=== PATIENT | female | born 1935 | race Caucasian/White ===

== ENCOUNTER 2016-05-07 13:25 | Emergency (ER) | payer MEDICARE, OTHER ==
[2016-05-07 14:33] LABS: APPEARANCE,URINE CLOUDY; BILIRUBIN,URINE NEGATIVE (NEGATIVE); GLUCOSE, URINE NEGATIVE (NEGATIVE); KETONES,URINE NEGATIVE (NEGATIVE); LEUKOCYTE ESTERASE,URINE LARGE (NEGATIVE); NITRITE,URINE POSITIVE (NEGATIVE); PROTEIN,URINE 100 mg/dL (NEGATIVE); URINE SPECIFIC GRAVITY 1.012; UROBILINOGEN,URINE NEGATIVE mg/dL (<2.0)
[2016-05-07] MEDS ORDERED: LIDOCAINE 1% INJ-PF (10 MG/ML) 30 ML SDV INJ ONE (14:42)
[2016-05-07] MEDS ORDERED: CEFTRIAXONE INJ 1000 MG VIAL IM ONE (14:42)
--- NOTE | 2016-05-07 14:57 | ER Document Report ---
ED GI/ - General Mode of Arrival: Ambulatory Information source: Patient TRAVEL OUTSIDE OF THE [place] IN LAST 30 DAYS: No - HPI Patient complains to provider of: Other - UTI symptoms Onset: Last week Associated symptoms: Other - see above <LAURA AG - Last Filed: 05/07/16 14:41> <BRADLEY CEJA - Last Filed: 05/07/16 15:52> - General Chief Complaint: Urinary Frequency Stated Complaint: STRONG URINE ODOR,ALTERED MENTAL Notes: 81 year old female with history or UTIs (in ED on 04/16/2016 for UTI) presents to the ED accompanied by her daughter who complains the patient is having UTI like symptoms that started earlier this week. Patient was taken to her primary 2 days ago where a urine test was performed. Daughter states that the results of the urine test were not given to her and thus was not started on any antibiotics. Daughter states that the patient's behavior has become abnormal. Patient's primary care provider is Dr. Leblanc. (LAURA AG) - Related Data Allergies/Adverse Reactions: morphine [Morphine] Allergy (Severe, Verified 04/13/16 08:41) swelling Iodinated Contrast Media - Oral and [IV Dye, Iodine Containing] Allergy ( Intermediate, Verified 04/13/16 08:41) RASH TO FACE, DIFFICULTY BREATHING Past Medical History - General Information source: Patient, Relative - Social History Smoking Status: Unknown if Ever Smoked Family History: CAD, Hypertension - Past Medical History Cardiac Medical History: Reports: Hx Hypercholesterolemia, Hx Hypertension, Hx Heart Murmur Pulmonary Medical History: Reports: Hx Tuberculosis - hypo Neurological Medical History: Reports: Hx Cerebrovascular Accident Endocrine Medical History: Reports: Hx Hypothyroidism Renal/ Medical History: Reports: Hx Kidney Stones GI Medical History: Reports: Hx Diverticulitis, Hx Gastroesophageal Reflux Disease, Hx Hiatal Hernia Musculoskeltal Medical History: Reports Hx Arthritis Psychiatric Medical History: Reports: Hx Dementia, Hx Depression Past Surgical History: Reports: Hx Abdominal Surgery, Hx Appendectomy, Hx Bowel Surgery, Hx Section, Hx Cholecystectomy, Hx Colostomy - then reversed, Hx Hysterectomy, Hx Orthopedic Surgery, Hx Tubal Ligation - Immunizations Hx Diphtheria, Pertussis, Tetanus Vaccination: Yes Hx Pneumococcal Vaccination: 12/14/06 <LAURA AG - Last Filed: 05/07/16 14:41> Review of Systems - Review of Systems Constitutional: No symptoms reported EENT: No symptoms reported Cardiovascular: No symptoms reported Respiratory: No symptoms reported Gastrointestinal: No symptoms reported Genitourinary: See HPI, Dysuria, Frequency Female Genitourinary: No symptoms reported Musculoskeletal: No symptoms reported Skin: No symptoms reported Hematologic/Lymphatic: No symptoms reported Neurological/Psychological: No symptoms reported <LAURA AG - Last Filed: 05/07/16 14:41> Physical Exam - General General appearance: Alert In distress: None - HEENT Head: Normocephalic, Atraumatic Eyes: Normal Extraocular movements intact: Yes Pupils: PERRL - Respiratory Respiratory status: No respiratory distress Breath sounds: Normal - Cardiovascular Rhythm: Regular Heart sounds: Normal auscultation Murmur: Yes - Abdominal Inspection: Normal Distension: No distension Bowel sounds: Normal Tenderness: Nontender - Back Back: Normal - Extremities General upper extremity: Normal inspection, Normal ROM General lower extremity: Normal inspection, Normal ROM - Neurological Neuro grossly intact: Yes - baseline dimentia - Psychological Associated symptoms: Normal affect, Normal mood - Skin Skin Temperature: Warm Skin Moisture: Dry Skin Color: Normal <LAURA AG - Last Filed: 05/07/16 14:41> <BRADLEY CEJA - Last Filed: 05/07/16 15:52> - Vital signs Vitals: Temp Pulse Resp BP Pulse Ox 98.1 F 70 22 H 137/68 H 95 05/07/16 13:41 05/07/16 13:41 05/07/16 13:41 05/07/16 13:41 05/07/16 13:41 (LAURA AG) (BRADLEY CEJA) Course - Laboratory Result Diagrams: 05/07/16 14:28 05/07/16 14:28 <BRADLEY CEJA - Last Filed: 05/07/16 15:52> - Vital Signs Vital signs: Temp Pulse Resp BP Pulse Ox 98.1 F 70 22 H 137/68 H 95 05/07/16 13:41 05/07/16 13:41 05/07/16 13:41 05/07/16 13:41 05/07/16 13:41 (LAURA AG) (BRADLEY CEJA) - Laboratory Laboratory results interpreted by me: 05/07/16 05/07/16 05/07/16 14:00 14:28 14:28 WBC 10.8 H RBC 3.44 L Hgb 10.4 L Hct 31.1 L RDW 14.8 H BUN 24 H Est GFR ( Amer) 52 L Est GFR (Non-Af Amer) 43 L Albumin 3.1 L Urine Protein 100 H Urine Blood LARGE H Urine Nitrite POSITIVE H Ur Leukocyte Esterase LARGE H (LAURA AG) (BRADLEY CEJA) Discharge <LAURA AG - Last Filed: 05/07/16 14:41> <BRADLEY CEJA - Last Filed: 05/07/16 15:52> - Discharge Clinical Impression: Urinary tract infection Qualifiers: Urinary tract infection type: site unspecified Hematuria presence: with hematuria Qualified Code(s): N39.0 - Urinary tract infection, site not specified ; R31.9 - Hematuria, unspecified Condition: Stable Disposition: HOME, SELF-CARE Additional Instructions: Urinary Tract Infection: Your evaluation indicates that you have a urinary tract infection. This is due to germs growing in the bladder. This is a common problem. This infection usually responds quickly to antibiotics. Your antibiotic should be taken exactly as prescribed. Drink plenty of fluids -- three to four quarts a day. Occasionally, a bladder anesthetic will be prescribed to help stop the feeling of urgency until the antibiotic has a chance to clear the infection. This may cause your urine to be dark orange. Certain urine infections require a culture. If the doctor obtained a culture, the results will be back in two days. You should call to see if a change in treatment is needed. A repeat urinalysis after you finish treatment is often recommended. The physician will let you know if further testing is required. Call the doctor if you develop fever, chills, flank pain, inability to urinate, or blood in the urine. TAKE THE MEDICATION PRESCRIBED. DRINK PLENTY OF FLUIDS. FOLLOW UP WITH DR. LEBLANC MONDAY IF NOT IMPROVING. RETURN TO THE EMERGENCY ROOM IF ANY NEW OR WORSENING SYMPTOMS. Prescriptions: Cefuroxime Axetil [Ceftin 250 mg/5 ml Susp] 5 ml PO BID #75 ml Referrals: SAMAN LEBLANC MD [Primary Care Provider] - 05/09/16 Scribe Attestation: 05/07/16 15:51 I personally performed the services described in the documentation, reviewed and edited the documentation which was dictated to the scribe in my presence, and it accurately records my words and actions. (BRADLEY CEJA) Scribe Documentation - Scribe Written by Scribe:: Lesly Decker, 05/07/2016 1500 acting as scribe for :: Aminata <LAURA AG - Last Filed: 05/07/16 14:41>
[2016-05-07 15:24] LABS: ABSOLUTE EOSINOPHILS # (AUTO) 0.4 10^3/uL (0.0-0.6); ABSOLUTE LYMPHOCYTES (AUTO) 3.9 10^3/uL (0.5-4.7); ABSOLUTE NEUT (AUTO) 5.5 10^3/uL (1.7-8.2); BASOPHILS % (AUTO) 0.3 % (0-2); EOSINOPHILS % (AUTO) 3.8 % (0-6); HEMATOCRIT 31.1 % (36.0-47.0); HEMOGLOBIN 10.4 g/dL (12.0-15.5); HGB HCT DIFFERENCE 0.1; MEAN CORPUSCULAR HEMOGLOBIN 30.2 pg (27.0-33.4); MEAN CORPUSCULAR HGB CONC 33.5 g/dL (32.0-36.0); MEAN CORPUSCULAR VOLUME 90 fl (80-97); MONOCYTES % (AUTO) 9.3 % (3-13); RED BLOOD COUNT 3.44 10^6/uL (3.72-5.28); RED CELL DISTRIBUTION WIDTH 14.8 % (11.5-14.0); SEGMENTED NEUTROPHILS % (AUTO) 50.6 % (42-78); WHITE BLOOD COUNT 10.8 10^3/uL (4.0-10.5)
[2016-05-07 15:43] LABS: ALANINE AMINOTRANSFERASE 22 U/L (9-52); ALBUMIN 3.1 g/dL (3.5-5.0); ALKALINE PHOSPHATASE 115 U/L (38-126); ANION GAP 8 (5-19); ASPARTATE AMINO TRANSFERASE 22 U/L (14-36); BILIRUBIN,TOTAL 0.7 mg/dL (0.2-1.3); BLOOD UREA NITROGEN 24 mg/dL (7-20); CALCIUM 8.8 mg/dL (8.4-10.2); CARBON DIOXIDE 30 mmol/L (22-30); CHLORIDE 102 mmol/L (98-107); GLUCOSE 100 mg/dL (75-110); POTASSIUM 4.4 mmol/L (3.6-5.0); SODIUM 140.4 mmol/L (137-145); TOTAL PROTEIN 7.2 g/dL (6.3-8.2)
[2016-05-07 16:13] VITALS: BP 156/73
== END 2016-05-07 15:56 | disposition home or self-care (01) ==
LOC: ER 13:25
DX: N39.0 Urinary tract infection, site not specified (principal); E78.00 Pure hypercholesterolemia, unspecified; I10 Essential (primary) hypertension; E03.9 Hypothyroidism, unspecified; Z86.73 Personal history of transient ischemic attack (TIA), and cerebral infarction without residual deficits; Z87.442 Personal history of urinary calculi; Z90.49 Acquired absence of other specified parts of digestive tract; Z90.710 Acquired absence of both cervix and uterus; Z88.6 Allergy status to analgesic agent
CPT/HCPCS: 99283; 96372; 36415; 87086; 85025; 87088; 80053; 81001; 87186; J3490; J0696

== ENCOUNTER 2016-05-09 16:04 | Emergency (ER) | payer MEDICARE, OTHER ==
[2016-05-09] MEDS ORDERED: LIDOCAINE 5% (700 MG) TRANSDERMAL ADH..PATCH TP ONE (17:24)
[2016-05-09 17:30] LABS: ABSOLUTE EOSINOPHILS # (AUTO) 0.5 10^3/uL (0.0-0.6); ABSOLUTE LYMPHOCYTES (AUTO) 4.3 10^3/uL (0.5-4.7); ABSOLUTE NEUT (AUTO) 5.7 10^3/uL (1.7-8.2); BASOPHILS % (AUTO) 0.2 % (0-2); EOSINOPHILS % (AUTO) 4.5 % (0-6); HEMATOCRIT 31.3 % (36.0-47.0); HEMOGLOBIN 10.2 g/dL (12.0-15.5); HGB HCT DIFFERENCE -0.7; LYMPHOCYTES % (AUTO) 37.2 % (13-45); MEAN CORPUSCULAR HGB CONC 32.6 g/dL (32.0-36.0); MEAN CORPUSCULAR VOLUME 92 fl (80-97); MONOCYTES % (AUTO) 8.7 % (3-13); RED BLOOD COUNT 3.41 10^6/uL (3.72-5.28); RED CELL DISTRIBUTION WIDTH 15.2 % (11.5-14.0); SEGMENTED NEUTROPHILS % (AUTO) 49.4 % (42-78); WHITE BLOOD COUNT 11.5 10^3/uL (4.0-10.5)
[2016-05-09 17:32] LABS: ALANINE AMINOTRANSFERASE 22 U/L (9-52); ALBUMIN 3.6 g/dL (3.5-5.0); ALKALINE PHOSPHATASE 124 U/L (38-126); ANION GAP 8 (5-19); ASPARTATE AMINO TRANSFERASE 19 U/L (14-36); BILIRUBIN,TOTAL 0.5 mg/dL (0.2-1.3); BLOOD UREA NITROGEN 23 mg/dL (7-20); CALCIUM 8.8 mg/dL (8.4-10.2); CARBON DIOXIDE 29 mmol/L (22-30); CHLORIDE 104 mmol/L (98-107); CREATINE KINASE 27 U/L (30-135); CREATININE RESULT 1.15 mg/dL (0.52-1.25); GLUCOSE 111 mg/dL (75-110); POTASSIUM 4.7 mmol/L (3.6-5.0); SODIUM 141.3 mmol/L (137-145); TOTAL PROTEIN 7.4 g/dL (6.3-8.2)
[2016-05-09 18:00] LABS: CREATINE KINASE MB < 0.22 ng/mL (<4.55); TROPONIN I < 0.012 ng/mL
[2016-05-09 18:35] LABS: APPEARANCE,URINE CLOUDY; BILIRUBIN,URINE NEGATIVE (NEGATIVE); GLUCOSE, URINE NEGATIVE (NEGATIVE); KETONES,URINE NEGATIVE (NEGATIVE); LEUKOCYTE ESTERASE,URINE NEGATIVE (NEGATIVE); NITRITE,URINE NEGATIVE (NEGATIVE); PROTEIN,URINE 100 mg/dL (NEGATIVE); URINE SPECIFIC GRAVITY 1.015; UROBILINOGEN,URINE NEGATIVE mg/dL (<2.0)
--- NOTE | 2016-05-09 18:39 | ER Document Report ---
ED General - General Chief Complaint: Chest Pain Stated Complaint: CHEST PAIN TRAVEL OUTSIDE OF THE [place] IN LAST 30 DAYS: No - HPI Patient complains to provider of: right-sided chest pain Notes: Patient coming in for evaluation of a bruise to the right breast and chest pain. On known etiology of bruise family states no trauma last night after bath. Patient states pain and chest ongoing for the last 12 hours. Patient does have history of dementia. Patient upon my evaluation shows no distress - Related Data Allergies/Adverse Reactions: morphine [Morphine] Allergy (Severe, Verified 04/13/16 08:41) swelling Iodinated Contrast Media - Oral and [IV Dye, Iodine Containing] Allergy ( Intermediate, Verified 04/13/16 08:41) RASH TO FACE, DIFFICULTY BREATHING Past Medical History - Social History Smoking Status: Unknown if Ever Smoked Family History: CAD, Hypertension - Past Medical History Cardiac Medical History: Reports: Hx Hypercholesterolemia, Hx Hypertension, Hx Heart Murmur Denies: Hx Coronary Artery Disease, Hx Heart Attack Pulmonary Medical History: Reports: Hx Tuberculosis - hypo Denies: Hx Asthma, Hx Bronchitis, Hx COPD, Hx Pneumonia Neurological Medical History: Reports: Hx Cerebrovascular Accident. Denies: Hx Seizures Endocrine Medical History: Reports: Hx Hypothyroidism Renal/ Medical History: Reports: Hx Kidney Stones. Denies: Hx Peritoneal Dialysis GI Medical History: Reports: Hx Diverticulitis, Hx Gastroesophageal Reflux Disease, Hx Hiatal Hernia Musculoskeltal Medical History: Reports Hx Arthritis Psychiatric Medical History: Reports: Hx Dementia, Hx Depression Past Surgical History: Reports: Hx Abdominal Surgery, Hx Appendectomy, Hx Bowel Surgery, Hx Section, Hx Cholecystectomy, Hx Colostomy - then reversed, Hx Hysterectomy, Hx Orthopedic Surgery, Hx Tubal Ligation. Denies: Hx Pacemaker - Immunizations Hx Diphtheria, Pertussis, Tetanus Vaccination: Yes Hx Pneumococcal Vaccination: 12/14/06 Review of Systems - Review of Systems Constitutional: No symptoms reported EENT: No symptoms reported Cardiovascular: Chest pain - Bruising to right chest Respiratory: No symptoms reported Gastrointestinal: No symptoms reported Genitourinary: No symptoms reported Female Genitourinary: No symptoms reported Musculoskeletal: No symptoms reported Skin: No symptoms reported Hematologic/Lymphatic: No symptoms reported Neurological/Psychological: No symptoms reported Physical Exam - Vital signs Vitals: Resp Pulse Ox 17 96 05/09/16 16:36 05/09/16 16:36 Interpretation: Normal - General General appearance: Appears well, Alert - HEENT Head: Normocephalic, Atraumatic Eyes: Normal Pupils: PERRL - Respiratory Respiratory status: No respiratory distress Chest status: Nontender Breath sounds: Normal Chest palpation: Normal Notes: Bruising to the right breast - Cardiovascular Rhythm: Regular Heart sounds: Normal auscultation Murmur: No - Abdominal Inspection: Normal Distension: No distension Bowel sounds: Normal Tenderness: Nontender Organomegaly: No organomegaly - Back Back: Normal, Nontender - Extremities General upper extremity: Normal inspection, Nontender, Normal color, Normal ROM , Normal temperature General lower extremity: Normal inspection, Nontender, Normal color, Normal ROM , Normal temperature, Normal weight bearing. No: Sandeep's sign - Neurological Neuro grossly intact: Yes Cognition: Normal Orientation: AAOx4 Baldwin Coma Scale Eye Opening: Spontaneous Baldwin Coma Scale Verbal: Oriented Baldwin Coma Scale Motor: Obeys Commands Baldwin Coma Scale Total: 15 Speech: Normal Motor strength normal: LUE, RUE, LLE, RLE Sensory: Normal - Psychological Associated symptoms: Normal affect, Normal mood - Skin Skin Temperature: Warm Skin Moisture: Dry Skin Color: Normal Course - Re-evaluation Re-evalutation: 05/09/16 23:16 Patient coming in for evaluation of chest pain. Chest x-ray lab work showed no clear etiology. Family was updated lab results we will discharge home - Vital Signs Vital signs: Temp Pulse Resp BP Pulse Ox 98.7 F 17 141/79 H 90 L 05/09/16 18:46 05/09/16 18:46 05/09/16 18:46 05/09/16 18:46 - Laboratory Result Diagrams: 05/09/16 16:45 05/09/16 16:45 Laboratory results interpreted by me: 05/09/16 05/09/16 05/09/16 16:45 16:45 18:05 WBC 11.5 H RBC 3.41 L Hgb 10.2 L Hct 31.3 L RDW 15.2 H BUN 23 H Est GFR ( Amer) 55 L Est GFR (Non-Af Amer) 45 L Glucose 111 H Creatine Kinase 27 L Urine Protein 100 H Urine Blood LARGE H Discharge - Discharge Clinical Impression: right chest wall bruise Condition: Good Disposition: HOME, SELF-CARE Instructions: Chest Wall Pain ([facility]) Additional Instructions: Your EKG and lab work revealed no critical etiology for your chest pain. Please continue to take Tylenol or Motrin for the bruise on the right-sided chest wall. You may use the Lidoderm patches as prescribed or ask her pharmacist for a [id number] replacement. Please continue antibiotics for your previous urine infection Prescriptions: Lidocaine [Lidoderm 5% (700 mg) Transdermal Patch] 1 patch TP DAILY #30 adh..patch
[2016-05-09 18:54] VITALS: BP 141/79
--- NOTE | 2016-05-09 21:52 | EKG REPORT ---
SEVERITY:- ABNORMAL ECG - SINUS RHYTHM IVCD, CONSIDER ATYPICAL RBBB : Confirmed by: Constantin Fuentes 09-May-2016 21:51:58
== END 2016-05-09 19:41 | disposition home or self-care (01) ==
LOC: ER 16:04
DX: S20.211A Contusion of right front wall of thorax, initial encounter (principal); X58.XXXA Exposure to other specified factors, initial encounter; R07.9 Chest pain, unspecified; I10 Essential (primary) hypertension; Z86.73 Personal history of transient ischemic attack (TIA), and cerebral infarction without residual deficits; Z88.5 Allergy status to narcotic agent; Z91.041 Radiographic dye allergy status
CPT/HCPCS: 36415; 71010; 80053; 81001; 82550; 82553; 84484; 85025; 93005; 93010; 99285

== ENCOUNTER 2016-05-21 11:23 | Inpatient (IN) | payer MEDICARE, OTHER ==
--- NOTE | 2016-05-21 11:26 | ER Document Report ---
ED General - General Chief Complaint: Hip Pain Stated Complaint: FALL Mode of Arrival: Medic Information source: Patient, Relative, Emergency Med Personnel Notes: 81-year-old female presents with complaints of right hip pain and abdominal pain. Patient fell yesterday was noted to have been evaluated by EMS and no deformity was seen, so family stayed home. pt continued to have pain overnight TRAVEL OUTSIDE OF THE [place] IN LAST 30 DAYS: No - HPI Onset: Yesterday Onset/Duration: Sudden Quality of pain: Achy Severity: Mild Pain Level: 1 Associated symptoms: Other Exacerbated by: Movement Relieved by: Denies Similar symptoms previously: Yes Recently seen / treated by doctor: Yes - Related Data Allergies/Adverse Reactions: morphine [Morphine] Allergy (Severe, Verified 04/13/16 08:41) swelling Iodinated Contrast Media - Oral and [IV Dye, Iodine Containing] Allergy ( Intermediate, Verified 04/13/16 08:41) RASH TO FACE, DIFFICULTY BREATHING Past Medical History - Social History Smoking Status: Never Smoker Cigarette use (# per day): No Chew tobacco use (# tins/day): No Smoking Education Provided: No Family History: CAD, Hypertension - Past Medical History Cardiac Medical History: Reports: Hx Hypercholesterolemia, Hx Hypertension, Hx Heart Murmur Denies: Hx Coronary Artery Disease, Hx Heart Attack Pulmonary Medical History: Reports: Hx Tuberculosis - hypo Denies: Hx Asthma, Hx Bronchitis, Hx COPD, Hx Pneumonia Neurological Medical History: Reports: Hx Cerebrovascular Accident. Denies: Hx Seizures Endocrine Medical History: Reports: Hx Hypothyroidism Renal/ Medical History: Reports: Hx Kidney Stones. Denies: Hx Peritoneal Dialysis GI Medical History: Reports: Hx Diverticulitis, Hx Gastroesophageal Reflux Disease, Hx Hiatal Hernia Musculoskeltal Medical History: Reports Hx Arthritis Psychiatric Medical History: Reports: Hx Dementia, Hx Depression Past Surgical History: Reports: Hx Abdominal Surgery, Hx Appendectomy, Hx Bowel Surgery, Hx Section, Hx Cholecystectomy, Hx Colostomy - then reversed, Hx Hysterectomy, Hx Orthopedic Surgery, Hx Tubal Ligation. Denies: Hx Pacemaker - Immunizations Hx Diphtheria, Pertussis, Tetanus Vaccination: Yes Hx Pneumococcal Vaccination: 12/14/06 Review of Systems - Review of Systems Notes: REVIEW OF SYSTEMS: CONSTITUTIONAL : Denies fever, chills, or sweats. Denies recent illness. EENT: Denies eye, ear, throat, or mouth pain or symptoms. Denies nasal or sinus congestion or discharge. Denies throat, tongue, or mouth swelling or difficulty swallowing. CARDIOVASCULAR: Denies chest pain. Denies palpitations or racing or irregular heart beat. Denies ankle edema. RESPIRATORY: Denies cough, cold, or chest congestion. Denies shortness of breath, difficulty breathing, or wheezing. GASTROINTESTINAL: Admits to abdominal pain GENITOURINARY: Denies difficulty urinating, painful urination, burning, frequency, blood in urine, or discharge. FEMALE GENITOURINARY: Denies vaginal bleeding, heavy or abnormal periods, irregular periods. Denies vaginal discharge or odor. MUSCULOSKELETAL: Admits to leg pain hip pain SKIN: Denies rash, lesions or sores. HEMATOLOGIC : Denies easy bruising or bleeding. LYMPHATIC: Denies swollen, enlarged glands. NEUROLOGICAL: Denies confusion or altered mental status. Denies passing out or loss of consciousness. Denies dizziness or lightheadedness. Denies headache. Denies weakness or paralysis or loss of use of either side. Denies problems with gait or speech. Denies sensory loss, numbness, or tingling. Denies seizures. PSYCHIATRIC: Denies anxiety or stress. Denies depression, suicidal ideation, or homicidal ideation. ALL OTHER SYSTEMS REVIEWED AND NEGATIVE. Dictation was performed using [employer] voice recognition software PHYSICAL EXAMINATION: GENERAL: Well-appearing, well-nourished and in mild acute distress. HEAD: Atraumatic, normocephalic. EYES: Pupils equal round and reactive to light, extraocular movements intact, conjunctiva are normal. ENT: Nares patent, oropharynx clear without exudates. Moist mucous membranes. NECK: Normal range of motion, supple without lymphadenopathy LUNGS: Breath sounds clear to auscultation bilaterally and equal. No wheezes rales or rhonchi. HEART: Regular rate and rhythm without murmurs ABDOMEN: Soft, generalized abdominal pain worsens suprapubic region, Female : deferred Musculoskeletal: Limited range of motion of bilateral lower extremities NEUROLOGICAL: Cranial nerves grossly intact. Normal speech, normal gait. Normal sensory, motor exams PSYCH: Normal mood, normal affect. SKIN: Warm, Dry, normal turgor, no rashes or lesions noted. Course - Re-evaluation Re-evalutation: 05/21/16 12:09 Patient will be sent for CT abdomen pelvis with evaluation of the hip 05/21/16 12:41 Imaging is consistent with a right femoral fracture 05/21/16 12:52 Dr. Boland is pcp has been paged Appears hospitalist admits for pcp Dr Silva will admit patient - Laboratory Result Diagrams: 05/21/16 11:52 05/21/16 11:52 Laboratory results interpreted by me: 05/21/16 05/21/16 11:52 11:52 WBC 13.1 H RBC 3.65 L Hgb 10.9 L Hct 32.8 L RDW 14.6 H Absolute Neutrophils 9.5 H BUN 24 H Est GFR ( Amer) 51 L Est GFR (Non-Af Amer) 42 L Glucose 121 H Alkaline Phosphatase 128 H - Diagnostic Test Radiology reviewed: Image reviewed, Reports reviewed Discharge - Discharge Clinical Impression: Closed fracture of neck of right femur Qualifiers: Encounter type: initial encounter Qualified Code(s): S72.001A - Fracture of unspecified part of neck of right femur, initial encounter for closed fracture Fall Qualifiers: Encounter type: initial encounter Qualified Code(s): W19.XXXA - Unspecified fall, initial encounter Condition: Stable Disposition: ADMITTED INPATIENT Admitting Provider: Hospitalist Unit Admitted: Telemetry
[2016-05-21] MEDS ORDERED: HYDROMORPHONE HCL INJ/PF 2 MG/ML AMPULE IV ONE (11:53)
[2016-05-21 12:20] LABS: ABSOLUTE EOSINOPHILS # (AUTO) 0.1 10^3/uL (0.0-0.6); ABSOLUTE LYMPHOCYTES (AUTO) 2.7 10^3/uL (0.5-4.7); ABSOLUTE MONOCYTES (AUTO) 0.9 10^3/uL (0.1-1.4); ABSOLUTE NEUT (AUTO) 9.5 10^3/uL (1.7-8.2); BASOPHILS % (AUTO) 0.3 % (0-2); EOSINOPHILS % (AUTO) 0.5 % (0-6); HEMATOCRIT 32.8 % (36.0-47.0); HEMOGLOBIN 10.9 g/dL (12.0-15.5); HGB HCT DIFFERENCE -0.1; LYMPHOCYTES % (AUTO) 20.6 % (13-45); MEAN CORPUSCULAR HGB CONC 33.4 g/dL (32.0-36.0); MEAN CORPUSCULAR VOLUME 90 fl (80-97); MONOCYTES % (AUTO) 6.6 % (3-13); RED BLOOD COUNT 3.65 10^6/uL (3.72-5.28); RED CELL DISTRIBUTION WIDTH 14.6 % (11.5-14.0); WHITE BLOOD COUNT 13.1 10^3/uL (4.0-10.5)
[2016-05-21 12:32] LABS: ALANINE AMINOTRANSFERASE 22 U/L (9-52); ALBUMIN 3.6 g/dL (3.5-5.0); ALKALINE PHOSPHATASE 128 U/L (38-126); ANION GAP 13 (5-19); ASPARTATE AMINO TRANSFERASE 25 U/L (14-36); BILIRUBIN,TOTAL 0.7 mg/dL (0.2-1.3); BLOOD UREA NITROGEN 24 mg/dL (7-20); CALCIUM 8.9 mg/dL (8.4-10.2); CARBON DIOXIDE 26 mmol/L (22-30); CHLORIDE 102 mmol/L (98-107); CREATININE RESULT 1.23 mg/dL (0.52-1.25); GLUCOSE 121 mg/dL (75-110); POTASSIUM 3.9 mmol/L (3.6-5.0); SODIUM 141.2 mmol/L (137-145); TOTAL PROTEIN 7.6 g/dL (6.3-8.2)
[2016-05-21] MEDS ORDERED: DEXTROSE 5%-1/2 NORMAL SALINE 1,000 ML IV PRN (13:10)
[2016-05-21] MEDS ORDERED: ACETAMINOPHEN 650 MG SUPP.RECT PR PRN (13:10)
[2016-05-21] MEDS ORDERED: LORAZEPAM 1 MG TABLET PO PRN ×2 (13:26→17:15)
[2016-05-21 13:43] LABS: PROTHROMBIN TIME 13.5 SEC (11.4-15.4)
[2016-05-21 13:44] LABS: PARTIAL THROMBOPLASTIN TIME 31.2 SEC (23.5-35.8)
--- NOTE | 2016-05-21 14:07 | PDOC H&P ---
History of Present Illness Admission Date/PCP: SAMAN LEBLANC, Patient complains of: Right hip pain. History of Present Illness: LESTER NEFF is an 81 year old female who fell at home last night returning from the bathroom. She denies dizziness or fainting. She apparently tripped over a chair. She suffered immediate pain to the right hip area. EMS was called but as they did not to see a lower extremity deformity, they did not bring her to the ED. She presents now several hours later because of persistent pain and inability to ambulate. X-rays show an acute right femoral neck fracture. Past Medical History Past Medical History: History of left hip fracture and ORIF Hypertension Hyperlipidemia Chronic kidney disease stage III Dementia Depression Colitis Urinary tract infection Altered mental status Hypothyroidism GERD Essential tremor Cardiac Medical History: Reports: Hyperlipidema, Hypertension, Heart Murmur Denies: Coronary Artery Disease, Myocardial Infarction Pulmonary Medical History: Reports: Tuberculosis - hypo Denies: Asthma, Bronchitis, Chronic Obstructive Pulmonary Disease (COPD), Pneumonia Neurological Medical History: Denies: Seizures Endocrine Medical History: Reports: Hypothyroidism GI Medical History: Reports: Diverticulitis, Gastroesophageal Reflux Disease, Hiatal Hernia Musculoskeltal Medical History: Reports: Arthritis Psychiatric Medical History: Reports: Dementia, Depression Hematology: Reports: Anemia Past Surgical History Past Surgical History: Reports: Appendectomy, Section, Cholecystectomy , Colostomy - then reversed, Hysterectomy, Orthopedic Surgery, Tubal Ligation Denies: Pacemaker Social History Smoking Status: Never Smoker Frequency of Alcohol Use: None Hx Recreational Drug Use: No Drugs: None Hx Prescription Drug Abuse: No - Advance Directive Resuscitation Status: Full Code Family History Family History: CAD, Hypertension Parental Family History Reviewed: Yes Children Family History Reviewed: NA Sibling(s) Family History Reviewed.: NA Medication/Allergy Allergies/Adverse Reactions: morphine [Morphine] Allergy (Severe, Verified 04/13/16 08:41) swelling Iodinated Contrast Media - Oral and [IV Dye, Iodine Containing] Allergy ( Intermediate, Verified 04/13/16 08:41) RASH TO FACE, DIFFICULTY BREATHING Review of Systems All systems: reviewed and no additional remarkable complaints except as stated Physical Exam Vital Signs: Intake & Output 05/20/16 05/21/16 05/22/16 06:59 06:59 06:59 Weight 84.822 kg General appearance: PRESENT: no acute distress, cooperative, mild distress, obese Head exam: PRESENT: atraumatic, normocephalic Eye exam: PRESENT: conjunctiva pink, EOMI, PERRLA. ABSENT: scleral icterus Ear exam: PRESENT: normal external ear exam Mouth exam: PRESENT: dry mucosa, tongue midline Neck exam: ABSENT: carotid bruit, JVD, lymphadenopathy, thyromegaly Respiratory exam: PRESENT: clear to auscultation silvana. ABSENT: rales, rhonchi, wheezes Cardiovascular exam: PRESENT: RRR. ABSENT: diastolic murmur, rubs, systolic murmur Pulses: PRESENT: normal dorsalis pedis pul Vascular exam: PRESENT: normal capillary refill GI/Abdominal exam: PRESENT: normal bowel sounds, soft. ABSENT: distended, guarding, mass, organolmegaly, rebound, tenderness Rectal exam: PRESENT: deferred Extremities exam: PRESENT: other - changes of ostearthritis. ABSENT: calf tenderness, clubbing, pedal edema Neurological exam: PRESENT: alert, awake, oriented to person, oriented to place , other - benign tremor Psychiatric exam: PRESENT: appropriate affect, normal mood Skin exam: PRESENT: other - senile skin changes Results Laboratory Results: 05/21/16 11:52 05/21/16 11:52 05/21/16 05/21/16 05/21/16 11:52 11:52 11:52 WBC 13.1 H RBC 3.65 L Hgb 10.9 L Hct 32.8 L MCV 90 MCH 30.0 MCHC 33.4 RDW 14.6 H Plt Count 251 Seg Neutrophils % 72.0 Lymphocytes % 20.6 Monocytes % 6.6 Eosinophils % 0.5 Basophils % 0.3 Absolute Neutrophils 9.5 H Absolute Lymphocytes 2.7 Absolute Monocytes 0.9 Absolute Eosinophils 0.1 Absolute Basophils 0.0 Sodium 141.2 Potassium 3.9 Chloride 102 Carbon Dioxide 26 Anion Gap 13 BUN 24 H Creatinine 1.23 Cancelled Est GFR ( Amer) 51 L Cancelled Est GFR (Non-Af Amer) 42 L Cancelled Glucose 121 H Calcium 8.9 Total Bilirubin 0.7 AST 25 ALT 22 Alkaline Phosphatase 128 H Total Protein 7.6 Albumin 3.6 Impressions: Abdomen/Pelvis CT 05/21/16 12:05 IMPRESSION: 1. Right femoral neck fracture. 2. Nonobstructing renal calculi. Assessment & Plan - Diagnosis (1) Fracture of femoral neck, right, closed Qualifiers: Encounter type: initial encounter Qualified Code(s): S72.001A - Fracture of unspecified part of neck of right femur, initial encounter for closed fracture Is this a current diagnosis for this admission?: YesPlan: Dr. Josh Cowan of orthopedics has been consulted. (2) Essential hypertension Is this a current diagnosis for this admission?: YesPlan: We'll continue home medications, monitor, and adjust Rx as needed. (3) Hyperlipidemia Qualifiers: Hyperlipidemia type: unspecified Qualified Code(s): E78.5 - Hyperlipidemia, unspecified Is this a current diagnosis for this admission?: Yes (5) Anemia of chronic disease Is this a current diagnosis for this admission?: Yes (6) Dementia Qualifiers: Dementia type: unspecified type Dementia behavioral disturbance: without behavioral disturbance Qualified Code(s): F03.90 - Unspecified dementia without behavioral disturbance Is this a current diagnosis for this admission?: YesPlan: Continue Exelon patch. (7) Depression Qualifiers: Depression Type: unspecified Qualified Code(s): F32.9 - Major depressive disorder, single episode, unspecified Is this a current diagnosis for this admission?: YesPlan: Continue Zoloft. (8) Colitis Is this a current diagnosis for this admission?: YesPlan: Continue home Rx. (9) Gastroesophageal reflux disease Qualifiers: Esophagitis presence: without esophagitis Qualified Code(s): K21.9 - Gastro-esophageal reflux disease without esophagitis Is this a current diagnosis for this admission?: YesPlan: Continue home Rx. (10) Essential tremor Is this a current diagnosis for this admission?: Yes - Time Time Spent: 50 to 70 Minutes
[2016-05-21 14:38] LABS: APPEARANCE,URINE SLIGHTLY-CLOUDY; BILIRUBIN,URINE NEGATIVE (NEGATIVE); GLUCOSE, URINE NEGATIVE (NEGATIVE); KETONES,URINE NEGATIVE (NEGATIVE); LEUKOCYTE ESTERASE,URINE SMALL (NEGATIVE); NITRITE,URINE NEGATIVE (NEGATIVE); PROTEIN,URINE 100 mg/dL (NEGATIVE); URINE SPECIFIC GRAVITY 1.011; UROBILINOGEN,URINE NEGATIVE mg/dL (<2.0)
[2016-05-21] MEDS ORDERED: LOSARTAN POTASSIUM 50 MG TABLET PO ONE (16:00)
[2016-05-21] MEDS: HYDROMORPHONE HCL INJ/PF 2 MG/ML AMPULE IV PRN ×2 (16:31→22:01)
[2016-05-21] MEDS ORDERED: HYDROXYZINE PAMOATE 25 MG CAPSULE PO PRN (16:32)
[2016-05-21] MEDS: DOCUSATE SODIUM 100 MG CAPSULE PO SCH (17:54)
[2016-05-21] MEDS: OXYBUTYNIN CHLORIDE 5 MG TABLET PO SCH (17:54)
[2016-05-21] MEDS: LEVOTHYROXINE SODIUM 0.15 MG TABLET PO SCH (17:54)
[2016-05-21] MEDS ORDERED: METOPROLOL TARTRATE PF/INJ 5 MG/5 ML SDV IV ONE (20:15)
[2016-05-21] MEDS ORDERED: METOPROLOL SUCCINATE 25 MG TAB.SR.24H PO SCH (20:15)
[2016-05-21] MEDS ORDERED: PANTOPRAZOLE SODIUM 40 MG VIAL IV SCH (22:00)
[2016-05-21] MEDS ORDERED: HYDROXYZINE PAMOATE 25 MG CAPSULE PO SCH (22:00)
[2016-05-21] MEDS: LANSOPRAZOLE 15 MG TAB.RAP.DR PO SCH (22:01)
[2016-05-21] MEDS: SERTRALINE HCL 50 MG TABLET PO SCH (22:01)
[2016-05-21] MEDS: PROPRANOLOL HCL 40 MG TABLET PO SCH (22:01)
[2016-05-21] MEDS: SIMVASTATIN 40 MG TABLET PO SCH (22:01)
[2016-05-22 05:54] LABS: ABSOLUTE EOSINOPHILS # (AUTO) 0.5 10^3/uL (0.0-0.6); ABSOLUTE LYMPHOCYTES (AUTO) 3.7 10^3/uL (0.5-4.7); ABSOLUTE MONOCYTES (AUTO) 1.1 10^3/uL (0.1-1.4); ABSOLUTE NEUT (AUTO) 7.5 10^3/uL (1.7-8.2); BASOPHILS % (AUTO) 0.3 % (0-2); EOSINOPHILS % (AUTO) 3.5 % (0-6); HEMATOCRIT 31.6 % (36.0-47.0); HEMOGLOBIN 10.4 g/dL (12.0-15.5); HGB HCT DIFFERENCE -0.4; MEAN CORPUSCULAR HEMOGLOBIN 29.8 pg (27.0-33.4); MEAN CORPUSCULAR HGB CONC 33.1 g/dL (32.0-36.0); MEAN CORPUSCULAR VOLUME 90 fl (80-97); MONOCYTES % (AUTO) 8.7 % (3-13); RED CELL DISTRIBUTION WIDTH 15.1 % (11.5-14.0); SEGMENTED NEUTROPHILS % (AUTO) 58.5 % (42-78); WHITE BLOOD COUNT 12.9 10^3/uL (4.0-10.5)
[2016-05-22 06:13] LABS: ANION GAP 13 (5-19); BLOOD UREA NITROGEN 34 mg/dL (7-20); CALCIUM 8.7 mg/dL (8.4-10.2); CARBON DIOXIDE 25 mmol/L (22-30); CHLORIDE 102 mmol/L (98-107); CREATININE RESULT 1.62 mg/dL (0.52-1.25); GLUCOSE 114 mg/dL (75-110); POTASSIUM 3.9 mmol/L (3.6-5.0); SODIUM 139.7 mmol/L (137-145)
[2016-05-22] MEDS: HYDROMORPHONE HCL INJ/PF 2 MG/ML AMPULE IV PRN (06:55)
[2016-05-22] MEDS ORDERED: LIDOCAINE 2% INJ-PF (20 MG/ML) 10 ML AMPUL ONE (07:30)
[2016-05-22] MEDS ORDERED: DEXMEDETOMIDINE INJ 80 MCG/20 ML VIAL IV ONE (07:30)
[2016-05-22] MEDS ORDERED: ACETAMINOPHEN 0 ML IV ONE (07:30)
[2016-05-22] MEDS ORDERED: MIDAZOLAM 2 MG/2 ML INJ ONE (07:30)
[2016-05-22] MEDS ORDERED: PROPOFOL INJ 200 MG/20 ML VIAL IV ONE (07:30)
[2016-05-22] MEDS ORDERED: EPHEDRINE SULFATE INJ 50 MG/1 ML AMPULE ONE (07:38)
[2016-05-22] MEDS ORDERED: SERTRALINE HCL 50 MG TABLET PO SCH ×2 (08:00→11:00)
[2016-05-22] MEDS ORDERED: LIDOCAINE 5% (700 MG) TRANSDERMAL ADH..PATCH TP SCH (10:00)
[2016-05-22] MEDS ORDERED: LEVOTHYROXINE SODIUM 0.15 MG TABLET PO SCH ×2 (10:00→16:00)
[2016-05-22] MEDS ORDERED: PROPRANOLOL HCL 40 MG TABLET PO SCH (10:00)
[2016-05-22] MEDS ORDERED: (PENDING PHARMACY ID) (Losartan Potassium [Losartan Potassium] 100 MG) PO SCH (10:00)
[2016-05-22] MEDS ORDERED: LOSARTAN POTASSIUM 50 MG TABLET PO SCH ×2 (10:00)
[2016-05-22] MEDS ORDERED: MESALAMINE PO SCH (10:00)
[2016-05-22] MEDS ORDERED: LEVOFLOXACIN 250 MG/D5W RTU 250 MG/50 ML RTUPB IV SCH (10:00)
[2016-05-22] MEDS ORDERED: RIVASTIGMINE 13.3 MG TD SCH (10:00)
[2016-05-22] MEDS ORDERED: RIVASTIGMINE 9.5 MG/24 HR PATCH.TD24 TD SCH (10:00)
[2016-05-22] MEDS ORDERED: ONDANSETRON HCL INJ/PF 4 MG/2 ML SDV IV PRN (10:42)
[2016-05-22] MEDS ORDERED: MEPERIDINE HCL/PF INJ 25 MG/1 ML DISP.SYRIN IV PRN (10:42)
[2016-05-22] MEDS ORDERED: PROMETHAZINE HCL INJ 25 MG/1 ML VIAL IV PRN ×2 (10:42)
[2016-05-22] MEDS ORDERED: FENTANYL CITRATE INJ/PF 100 MCG/2 ML AMPUL IV PRN ×3 (10:42)
[2016-05-22] MEDS ORDERED: DIPHENHYDRAMINE HCL 50 MG/ML VIAL IV PRN (10:42)
[2016-05-22] MEDS ORDERED: BUPIVACAINE INJ/PF LIPOSOME/PF 266 MG/20 ML SDV IJ ONE (11:43)
--- NOTE | 2016-05-22 12:49 | PDOC H&P ---
History of Present Illness Admission Date/PCP: 05/21/16 13:12 SAMAN LEBLANC, History of Present Illness: LESTER NEFF is an 81 year old female who fell at home last night returning from the bathroom. She denies dizziness or fainting. She apparently tripped over a chair. She suffered immediate pain to the right hip area. EMS was called but as they did not to see a lower extremity deformity, they did not bring her to the ED. She presents now several hours later because of persistent pain and inability to ambulate. In the emergency room x-rays demonstrated displaced femoral neck fracture. According the family her last dose pain medication was last evening. Prior to that she was complaining of pain worse with motion. Denies numbness or tingling. Has history of previous left hip fracture done approximately 12 years ago according to the family. 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 Denies: Asthma, Bronchitis, Chronic Obstructive Pulmonary Disease (COPD), Pneumonia Neurological Medical History: Denies: Seizures Endocrine Medical History: Reports: Hypothyroidism GI Medical History: Reports: Diverticulitis, Gastroesophageal Reflux Disease, Hiatal Hernia Musculoskeltal Medical History: Reports: Arthritis Psychiatric Medical History: Reports: Dementia, Depression Hematology: Reports: Anemia Past Surgical History Past Surgical History: Reports: Appendectomy, Section, Cholecystectomy , Colostomy - then reversed, Hysterectomy, Orthopedic Surgery, Tubal Ligation Denies: Pacemaker Social History Smoking Status: Current Every Day Smoker Cigarettes Packs Per Day: 0.5 Cigars Per Day: 0 Pipes Per Day: 0 Number of Years Smokin Last Time Smoked: 05/20/2016 Frequency of Alcohol Use: None Hx Recreational Drug Use: No Drugs: None Hx Prescription Drug Abuse: No - Advance Directive Resuscitation Status: Full Code Family History Family History: CAD, Hypertension Parental Family History Reviewed: No Children Family History Reviewed: No Sibling(s) Family History Reviewed.: No Medication/Allergy Home Medications: Aspirin [Aspirin 325 mg Tablet] 325 mg PO DAILY 05/21/16 Clonidine [Catapres-Tts 1 (0.1 mg/24 Hr) Transderm Patch] 0.1 mg TD TU@1000 Hydroxyzine Pamoate [Vistaril 25 mg Capsule] 2 cap PO HSP PRN 05/21/16 Lansoprazole [Prevacid] 15 mg PO QHS 05/21/16 Levothyroxine Sodium [Synthroid 0.15 mg Tablet] 150 mcg PO DAILY@1600 05/21/16 Lidocaine [Lidoderm 5% (700 mg) Transdermal Patch] 1 patch TD DAILY 05/21/16 Lorazepam 2 mg PO HSP 05/21/16 Losartan Potassium [Cozaar 50 mg Tablet] 100 mg PO DAILY 05/21/16 Oxybutynin Chloride [Ditropan 5 mg Tablet] 5 mg PO BID 05/21/16 Propranolol HCl [Inderal 40 mg Tablet] 80 mg PO BID 05/21/16 Rivastigmine [Exelon] 13.3 mg TD DAILY 05/21/16 Sertraline HCl [Zoloft] 100 mg PO BID 05/21/16 Simvastatin [Zocor 40 mg Tablet] 40 mg PO DAILY 05/21/16 Allergies/Adverse Reactions: morphine [Morphine] Allergy (Severe, Verified 04/13/16 08:41) swelling Penicillins Allergy (Severe, Verified 05/21/16 19:43) Swelling of Throat Iodinated Contrast Media - Oral and [IV Dye, Iodine Containing] Allergy ( Intermediate, Verified 04/13/16 08:41) RASH TO FACE, DIFFICULTY BREATHING Review of Systems ROS unobtainable: Due to mental status Physical Exam Vital Signs: Temp Pulse Resp BP Pulse Ox 98.1 F 71 14 118/75 93 05/22/16 06:43 05/22/16 06:43 05/22/16 06:43 05/22/16 06:43 05/22/16 07:00 Intake & Output 05/21/16 05/22/16 05/23/16 06:59 06:59 06:59 Intake Total 1300 Output Total 180 Balance 1120 Weight 79.5 kg General appearance: PRESENT: no acute distress, morbidly obese Eye exam: PRESENT: EOMI Ear exam: PRESENT: normal external ear exam Mouth exam: PRESENT: dry mucosa Respiratory exam: PRESENT: unlabored Cardiovascular exam: PRESENT: RRR Pulses: PRESENT: normal dorsalis pedis pul Vascular exam: PRESENT: normal capillary refill GI/Abdominal exam: PRESENT: normal bowel sounds, soft Musculoskeletal exam: PRESENT: other - Left lower extremity: Shortened, positive logroll. Intact plantar flexion/dorsiflexion. No sensory deficits. No calf tenderness. Neurological exam: PRESENT: alert, awake, other - Resting tremor Psychiatric exam: PRESENT: normal mood Results Laboratory Results: 05/22/16 04:41 05/22/16 04:41 05/21/16 05/22/16 05/22/16 13:56 04:41 04:41 WBC 12.9 H RBC 3.50 L Hgb 10.4 L Hct 31.6 L MCV 90 MCH 29.8 MCHC 33.1 RDW 15.1 H Plt Count 161 Seg Neutrophils % 58.5 Lymphocytes % 29.0 Monocytes % 8.7 Eosinophils % 3.5 Basophils % 0.3 Absolute Neutrophils 7.5 Absolute Lymphocytes 3.7 Absolute Monocytes 1.1 Absolute Eosinophils 0.5 Absolute Basophils 0.0 Sodium 139.7 Potassium 3.9 Chloride 102 Carbon Dioxide 25 Anion Gap 13 BUN 34 H Creatinine 1.62 H Est GFR ( Amer) 37 L Est GFR (Non-Af Amer) 30 L Glucose 114 H Calcium 8.7 Urine Color YELLOW Urine Appearance SLIGHTLY-CLOUDY Urine pH 7.0 Ur Specific [place] 1.011 Urine Protein 100 H Urine Glucose (UA) NEGATIVE Urine Ketones NEGATIVE Urine Blood LARGE H Urine Nitrite NEGATIVE Ur Leukocyte Esterase SMALL H Urine WBC (Auto) 28 Urine RBC (Auto) 46 Impressions: Hip/Pelvis X-Ray 05/21/16 00:00 IMPRESSION: Right femoral neck fracture with superior displacement of the distal fracture fragment relation to the femoral head. Osteopenia. History prior total arthroplasty of the left hip. There is bony fusion of the left hip joint. Abdomen/Pelvis CT 05/21/16 12:05 IMPRESSION: 1. Right femoral neck fracture. 2. Nonobstructing renal calculi. Chest X-Ray 05/21/16 13:19 IMPRESSION: No acute cardiopulmonary findings. Assessment & Plan - Diagnosis (1) Displaced fracture of right femoral neck Is this a current diagnosis for this admission?: YesPlan: Patient sustained a right displaced femoral neck fracture. According to the family she is ambulatory at home with assisted device. We discussed treatment options including nonoperative versus operative intervention. Risks and benefits were explained to the patient and family about operative versus nonoperative intervention. After discussing these risks decision was made to proceed with a right hip hemiarthroplasty. Risks include anesthetic complications, excessive bleeding, infection, injury to surrounding nerves, vessels and tendons, bruising, healing difficulties, scar formation, posttraumatic arthritis and any unforseen complication.
--- NOTE | 2016-05-22 12:49 | Operative Report ---
Operative Report DATE OF SURGERY: 05/22/16 PREOPERATIVE DIAGNOSIS: Right Displaced Femoral Neck Fracture POSTOPERATIVE DIAGNOSIS: Right Displaced Femoral Neck Fracture. Periprosthetic Femur Fracture OPERATION: Right Unipolar Hemiarthroplasty w/ ORIF Femoral Shaft Fracture SURGEON: KHARI VERAS ANESTHESIA: GA COMPLICATIONS: None ESTIMATED BLOOD LOSS: 300cc PROCEDURE: Indication for above procedure: 81-year-old female who according the family ambulates at home and sustained a fall onto her right hip. She was brought to the emergency room where x-rays demonstrated a femoral neck fracture. Patient was seen and evaluated by the hospitalist and found to be medically optimized for operative intervention. Risks and benefits of the surgical procedure explained to the patient and family verbalized understanding consented for the procedure. Procedure In Detail: Patient was seen and evaluated in the preoperative holding area. The RIGHT lower extremity was initialized and marked. Patient received 2g of Ancef IV for bacterial prophylaxis. Patient was taken back to the operative room where transferred to the operative table and placed under spinal anesthesia. Once they were adequately anesthetized patient was placed in the lateral position an axillary roll was placed in nonoperative left lower extremity was carefully padded.. A surgical team debriefing was performed ensuring all instrumentation was available, the surgical procedure was discussed with possible concerns reviewed. The upper extremity was prepped with chlor prep draped in a sterile fashion. A timeout was done identifying correct patient, procedure and extremity everyone in attendance agree with this and verbalized no concerns. A posterior skin incision was made just posterior to the greater trochanter. Dissection was done down to the gluteus darwin and iliotibial band fascia this was split in line with the skin incision. Any peripheral vasculature was carefully coagulated. A Charley retractor was placed after palpation of the sciatic nerve and the sciatic nerve was safely retracted from the wound throughout the entirety of the case. Patient had evidence of significant bone growth along the posterior aspect at the trochanteric neck junction. Significantly limiting patient internal rotation and abduction. I was able to identify the external rotators and with the use of a Bovie this was carefully elevated off along with underlying capsule from the neck in a T-shaped capsulotomy was made just superior to the piriformis which was tagged. The femoral neck was identified and approximately 1 fingerbreadth above the lesser trochanter a freshening cut was made. Any excess bone remaining was carefully removed. I then used the corkscrew to remove the femoral head from the acetabulum which was then measured on the back table. The excess bone was removed and removed the scopes irrigated with normal saline. I then trial the femoral head according to what was measured on the back table and got good fit within the acetabulum. A 44 mm head for about a good fit. I then turned my attention to femoral preparation. A box osteotome was first used to get laterally along the trochanter. I then used the lateralizing reamer to avoid medialization of the stem and ultimately varus malalignment. I then began broaching with a 0 broach and broached up to a #6 broach which was somewhat countersunk. I then utilized the calcar reamer reamed out the appropriate level. I then broached up to a #7 broach which I got good proximal fit. I began trialing with a #0 neck length but was unable to reduce the hip. A -4 neck length was then used and I still could not get the hip reduced. Thus I further seated the #7 broach. And using the calcar reamer freshen the neck. I was then able to trial a -4 neck length and obtained excellent stability throughout hip range of motion with equal leg lengths. I then implanted the number size 7 Иван accolade stem which was impacted down to the neck. I then impacted the size 44 femoral head which subsequently resulted in a fracture of the proximal femur which extended down the shaft of the femur. Thus the implants were removed and the surgical exposure was extended distally. The wound was irrigated with Pulsavac normal saline. The tensor fascia bryan was split localizing the vastus lateralis which was elevated anteriorly and a small peripheral vascular suture was coagulated during the approach to the femur. I was then able to directly visualize the fracture with a reduction tenaculum I was able to anatomically reduce the fracture. I then placed 4 Иван 2.0 mm beaded cables above the fracture site and 1 table distal to the fracture. C-arm fluoroscopy was then obtained demonstrating near anatomic alignment of the patient's fracture. I then turned my attention to implantation of a Иван oriental orthodox revision stem. I first within the canal to a 15 mm reamer which was 195 mm in length C-arm fluoroscopy was then obtained confirming the step would bypass the fracture by 2 cortical diameters. Once this was confirmed I then implanted a [place] oriental orthodox revision stem 195 mm in length by 15 mm in diameter. I then reamed the proximal aspect of the femur to 19 mm. A 19 mm standard cone body was then trialed with a -4 neck adjustment. Patient had excellent stability throughout flexion and internal rotation she does had tightness with external rotation and abduction equal to her preoperative range of motion. Leg lengths were determined to be equal. I marked the position of my anteversion for later implantation. The 19 mm standard cone body was then implanted and torqued to 180 pounds at the previous anteversion. I then trialed a 44 mm head -4 length and obtained good stability throughout range of motion. I then implanted the 44 mm -4 head into position. Final C-arm fluoroscopy pictures were obtained demonstrating fracture reduction and appropriate alignment of the implants. The wound was then copiously irrigated with normal saline and I proceeded with closure. Utilizing a #5 FiberWire suture I secured the capsule posteriorly into the trochanter. I then irrigated once again with normal saline. The gluteus darwin and tensor fascia bryan was closed with a running 0 PDS suture. The tensor fascia bryan interval was closed with interrupted 0 Vicryl suture. I then injected Exparel in multiple locations throughout the subcutaneous tissues , hip wound and the fascia. I then closed the subcutaneous tissues with interrupted 2-0 Vicryl suture. The skin was closed with ovidio. A sterile Tegaderm and Acticoat dressing was then placed. Sponge counts, instrument counts and needle counts were correct. Patient was then awoken from anesthesia laid supine at which point her leg lengths were once again checked and found to be equal to the nonoperative extremity. Patient was then transferred to the operating stretcher and placed in an abduction pillow. Patient tolerated procedure well stable to PACU. Postoperative plan: Patient will be started on Lovenox for DVT prophylaxis. She will begin physical therapy on postop day #1. Implants: Иван oriental orthodox revision stem 195 mm x 15 mm 19 mm +0 cone body 44 head, -4 neck length
[2016-05-22] MEDS: PROPRANOLOL HCL 40 MG TABLET PO SCH (14:23)
[2016-05-22] MEDS: LIDOCAINE 5% (700 MG) TRANSDERMAL ADH..PATCH TOP SCH (14:23)
[2016-05-22] MEDS: DOCUSATE SODIUM 100 MG CAPSULE PO SCH ×2 (14:23→19:07)
[2016-05-22] MEDS: SERTRALINE HCL 50 MG TABLET PO SCH ×2 (14:32→22:00)
[2016-05-22] MEDS: OXYBUTYNIN CHLORIDE 5 MG TABLET PO SCH ×2 (14:33→19:07)
[2016-05-22 15:10] LABS: HEMATOCRIT 23.1 % (36.0-47.0); HGB HCT DIFFERENCE -0.9; MEAN CORPUSCULAR HEMOGLOBIN 29.5 pg (27.0-33.4); MEAN CORPUSCULAR HGB CONC 32.1 g/dL (32.0-36.0); MEAN CORPUSCULAR VOLUME 92 fl (80-97); RED BLOOD COUNT 2.51 10^6/uL (3.72-5.28); RED CELL DISTRIBUTION WIDTH 15.2 % (11.5-14.0)
[2016-05-22] MEDS ORDERED: NORMAL SALINE 1000 ML 1,000 ML IV ONE (15:30)
[2016-05-22 15:35] LABS: WHITE BLOOD COUNT 26.8 10^3/uL (4.0-10.5)
[2016-05-22 16:08] LABS: HEMOGLOBIN 7.4 g/dL (12.0-15.5)
[2016-05-22] MEDS ORDERED: DEXTROSE 5%-WATER 250 ML with NOREPINEPHRINE BITARTRATE 4 MG IV PRN ×2 (16:50)
--- NOTE | 2016-05-22 17:13 | PDOC PROGRESS REPORT ---
Subjective Progress Note for:: 05/22/16 Subjective:: This 81-year-old woman fell at home and was seen in the emergency department on 05/21/2016. As she was found to have a right femoral neck fracture. This morning she underwent ORIF by Dr. Cowan. The procedure was more extensive than initially planned. I am seeing the patient after discharge from the PACU in her room on the medical floor. She has been hypotensive despite the use of about 5 L of crystalloid IV fluid. A postoperative hemoglobin is down to 7.4 from a preoperative 10.4. Her respiratory rate is rising and her oxygen saturation is falling. She is not making much urine. She remains awake and interactive. Physical Exam Vital Signs: Temp Pulse Resp BP Pulse Ox 97.4 F 71 28 H 88/64 L 98 05/22/16 16:44 05/22/16 16:44 05/22/16 16:44 05/22/16 16:44 05/22/16 16:44 Intake & Output 05/21/16 05/22/16 05/23/16 06:59 06:59 06:59 Intake Total 1300 6000 Output Total 180 3505 Balance 1120 2495 Weight 79.5 kg Additional comments: General appearance: She is drowsy but interactive. She appears pale. Head exam: PRESENT: atraumatic, normocephalic Eye exam: PRESENT: conjunctiva pink, EOMI, PERRLA. ABSENT: scleral icterus Ear exam: PRESENT: normal external ear exam Mouth exam: PRESENT: dry mucosa, tongue midline Neck exam: ABSENT: carotid bruit, JVD, lymphadenopathy, thyromegaly Respiratory exam: The chest now has congested, wheezy breath sounds. Cardiovascular exam: PRESENT: RRR. ABSENT: diastolic murmur, rubs, systolic murmur Pulses: PRESENT: normal dorsalis pedis pul Vascular exam: PRESENT: normal capillary refill GI/Abdominal exam: PRESENT: normal bowel sounds, soft. ABSENT: distended, guarding, mass, organolmegaly, rebound, tenderness Rectal exam: PRESENT: deferred Extremities exam: She is status post right hip ORIF. She is in an immobilizer. There is no peripheral edema. Neurological exam: PRESENT: alert, awake, oriented to person, oriented to place , other - benign tremor Psychiatric exam: PRESENT: appropriate affect, normal mood Skin exam: PRESENT: other - senile skin changes Results Laboratory Results: 05/22/16 14:40 05/22/16 04:41 05/22/16 05/22/16 05/22/16 04:41 04:41 14:40 WBC 12.9 H 26.8 H D RBC 3.50 L 2.51 L Hgb 10.4 L 7.4 L D Hct 31.6 L 23.1 L MCV 90 92 MCH 29.8 29.5 MCHC 33.1 32.1 RDW 15.1 H 15.2 H Plt Count 161 207 Seg Neutrophils % 58.5 Lymphocytes % 29.0 Monocytes % 8.7 Eosinophils % 3.5 Basophils % 0.3 Absolute Neutrophils 7.5 Absolute Lymphocytes 3.7 Absolute Monocytes 1.1 Absolute Eosinophils 0.5 Absolute Basophils 0.0 Sodium 139.7 Potassium 3.9 Chloride 102 Carbon Dioxide 25 Anion Gap 13 BUN 34 H Creatinine 1.62 H Est GFR ( Amer) 37 L Est GFR (Non-Af Amer) 30 L Glucose 114 H Calcium 8.7 Impressions: Abdomen/Pelvis CT 05/21/16 12:05 IMPRESSION: 1. Right femoral neck fracture. 2. Nonobstructing renal calculi. Chest X-Ray 05/21/16 13:19 IMPRESSION: No acute cardiopulmonary findings. Fluoroscopy 05/22/16 00:00 IMPRESSION: Please see combined report for performance of procedure and radiologic supervision and interpretation. Hip/Pelvis X-Ray 05/22/16 12:12 IMPRESSION: SATISFACTORY POSTOPERATIVE right HIP. Femur X-Ray 05/22/16 12:55 IMPRESSION: Status post right total hip replacement is noted above. An oblique lucency is identified within the cortex of the femur just proximal to the distal end of the femoral component of the hip prosthesis which has the appearance of a nondisplaced fracture line. Clinical correlation is recommended. Other findings as noted above. Assessment & Plan - Diagnosis (1) Fracture of femoral neck, right, closed Qualifiers: Encounter type: initial encounter Qualified Code(s): S72.001A - Fracture of unspecified part of neck of right femur, initial encounter for closed fracture Is this a current diagnosis for this admission?: YesPlan: She is now status post right hip ORIF by Dr. Cowan earlier today. The procedure was more extensive than initially planned. (2) Blood loss, postoperative Qualifiers: Surgical complication system/body Area: musculoskeletal system Procedure type: musculoskeletal Qualified Code(s): M96.830 - Postprocedural hemorrhage of a musculoskeletal structure following a musculoskeletal system procedure Is this a current diagnosis for this admission?: YesPlan: Preoperative hemoglobin of 10.4 has fallen to 7.4 after an uncomplicated but extensive orthopedic procedure. (3) Hypotension Qualifiers: Hypotension type: postprocedural hypotension Qualified Code(s): I95.81 - Postprocedural hypotension Is this a current diagnosis for this admission?: YesPlan: She has received to at least 5 L of crystalloid IV fluid. She has postoperative anemia. She is being typed and crossed for a 2 unit packed red blood cell transfusion. (4) Essential hypertension Is this a current diagnosis for this admission?: YesPlan: She is now hypotensive postoperatively. We'll hold her blood pressure medications. (5) Hyperlipidemia Qualifiers: Hyperlipidemia type: unspecified Qualified Code(s): E78.5 - Hyperlipidemia, unspecified Is this a current diagnosis for this admission?: Yes (6) Chronic kidney disease, stage III (moderate) Is this a current diagnosis for this admission?: YesPlan: She is currently making very little urine due to postoperative hypotension. IV fluids, packed red blood transfusions and the use of Levothroid are planned. If she remains oliguric will involve nephrology. (7) Anemia of chronic disease Is this a current diagnosis for this admission?: Yes (8) Dementia Qualifiers: Dementia type: unspecified type Dementia behavioral disturbance: without behavioral disturbance Qualified Code(s): F03.90 - Unspecified dementia without behavioral disturbance Is this a current diagnosis for this admission?: Yes (9) Depression Qualifiers: Depression Type: unspecified Qualified Code(s): F32.9 - Major depressive disorder, single episode, unspecified Is this a current diagnosis for this admission?: Yes (10) Colitis Is this a current diagnosis for this admission?: No (11) Gastroesophageal reflux disease Qualifiers: Esophagitis presence: without esophagitis Qualified Code(s): K21.9 - Gastro-esophageal reflux disease without esophagitis Is this a current diagnosis for this admission?: Yes (12) Essential tremor Is this a current diagnosis for this admission?: Yes - Time Critical Time spent with patient: 35 or more minutes - Patient will be transferred to the ICU for close monitoring and use of vasopressor medication.
[2016-05-22] MEDS ORDERED: NOREPINEPHRINE BITARTRATE INJ/PF 4 MG/4 ML SDV IV ONE (17:55)
[2016-05-22] MEDS: LEVOTHYROXINE SODIUM 0.15 MG TABLET PO SCH (19:07)
--- NOTE | 2016-05-22 21:18 | OPERATIVE REPORT E ---
Operative Report NAME: LESTER NEFF : 1935 AGE: 81Y DATE OF SURGERY: 05/22/2016 ROOM: 608 PREOPERATIVE DIAGNOSIS: Consultation for a central line placement. OPERATION: Insertion of central venous catheter through the right subclavian vein. SURGEON: MAYTE ILM M.D. ANESTHESIA Local anesthesia. ESTIMATED BLOOD LOSS: None. INDICATION: As described. PROCEDURE DESCRIPTION: The patient was placed in the Trendelenburg position. The neck and anterior chest wall cleaned and draped, and then right subclavian vein was accessed by using the Seldinger technique through the needle. A guidewire was passed into the superior vena cava and the tract was dilated. After that, over the guidewire, a triple lumen catheter was inserted into the superior vena cava with excellent venous flow. All the ports were flushed with heparinized solution and the catheter was secured in place. Dressings were applied. Patient tolerated the procedure very well. DICTATING PHYSICIAN: MAYTE LIM M.D. [id number] PHY#: [id number] ID: [id number] JOB#: [id number] ACCT: [id number] cc:MAYTE LIM M.D. >
[2016-05-22] MEDS: RIVAROXABAN 10 MG TABLET PO SCH (21:59)
[2016-05-22] MEDS: LANSOPRAZOLE 15 MG TAB.RAP.DR PO SCH (22:00)
[2016-05-22] MEDS: SIMVASTATIN 40 MG TABLET PO SCH (22:01)
[2016-05-22] MEDS: RINGERS SOLUTION,LACTATED 1,000 ML IV PRN (22:35)
[2016-05-23] MEDS ORDERED: VANCOMYCIN HCL 1,000 MG in DEXTROSE 5%-WATER 250 ML IV ONE ×2
[2016-05-23] MEDS ORDERED: VANCOMYCIN HCL INJ 1000 MG VIAL ONE (00:08)
[2016-05-23] MEDS: HYDROMORPHONE HCL INJ/PF 2 MG/ML AMPULE IV PRN ×4 (01:55→21:05)
[2016-05-23 05:26] LABS: HEMATOCRIT 27.8 % (36.0-47.0); HEMOGLOBIN 9.3 g/dL (12.0-15.5); HGB HCT DIFFERENCE 0.1; MEAN CORPUSCULAR HGB CONC 33.5 g/dL (32.0-36.0); MEAN CORPUSCULAR VOLUME 90 fl (80-97); RED BLOOD COUNT 3.11 10^6/uL (3.72-5.28); RED CELL DISTRIBUTION WIDTH 14.4 % (11.5-14.0); WHITE BLOOD COUNT 23.3 10^3/uL (4.0-10.5)
[2016-05-23 05:33] LABS: ANION GAP 10 (5-19); BLOOD UREA NITROGEN 43 mg/dL (7-20); CALCIUM 7.9 mg/dL (8.4-10.2); CARBON DIOXIDE 21 mmol/L (22-30); CHLORIDE 103 mmol/L (98-107); CREATININE RESULT 2.23 mg/dL (0.52-1.25); GLUCOSE 133 mg/dL (75-110); POTASSIUM 4.4 mmol/L (3.6-5.0); SODIUM 134.3 mmol/L (137-145)
[2016-05-23 07:55] LABS: BAND NEUTROPHILS % (MANUAL) 5 % (3-5); BASOPHILS % (MANUAL) 0 % (0-2); EOSINOPHILS % (MANUAL) 0 % (0-6); LYMPHOCYTES % (MANUAL) 6 % (13-45); TOTAL CELLS COUNTED 100
[2016-05-23 07:56] LABS: ANISOCYTOSIS SLIGHT; HYPOCHROMASIA SLIGHT; TOXIC GRANULATION SLIGHT
--- NOTE | 2016-05-23 08:01 | PDOC PROGRESS REPORT ---
Subjective Progress Note for:: 05/23/16 Subjective:: Patient lying in bed comfortable currently. Disoriented to time and place. Did require Levophed overnight due to hypotension. Denies chest pain or shortness of breath. Physical Exam Vital Signs: Temp Pulse Resp BP Pulse Ox 99.7 F 84 21 H 107/59 L 98 05/23/16 05:54 05/23/16 03:43 05/23/16 07:19 05/23/16 07:19 05/23/16 07:19 Intake & Output 05/22/16 05/23/16 05/24/16 06:59 06:59 06:59 Intake Total 1300 7950 Output Total 180 3554 Balance 1120 4396 Weight 79.5 kg 85.1 kg Musculoskeletal exam: PRESENT: other - Right lower extremity proximally dressing clean/dry/intact small area of bleeding distally. Minimal thigh swelling. Compartments soft and compressible no sign of compartment syndrome. Intact plantar flexion/dorsiflexion. No evidence of limb length inequality. Results Laboratory Results: 05/23/16 04:50 05/23/16 04:50 05/22/16 05/22/16 05/23/16 14:40 17:10 04:50 WBC 26.8 H D 23.3 H RBC 2.51 L 3.11 L Hgb 7.4 L D 9.3 L Hct 23.1 L 27.8 L MCV 92 90 MCH 29.5 30.0 MCHC 32.1 33.5 RDW 15.2 H 14.4 H Plt Count 207 133 L Seg Neutrophils % Not Reportable Lymphocytes % Not Reportable Monocytes % Not Reportable Eosinophils % Not Reportable Basophils % Not Reportable Absolute Neutrophils Not Reportable Absolute Lymphocytes Not Reportable Absolute Monocytes Not Reportable Absolute Eosinophils Not Reportable Absolute Basophils Not Reportable Sodium Potassium Chloride Carbon Dioxide Anion Gap BUN Creatinine Est GFR ( Amer) Est GFR (Non-Af Amer) Glucose Calcium Blood Type B POSITIVE Antibody Screen NEGATIVE 05/23/16 04:50 WBC RBC Hgb Hct MCV MCH MCHC RDW Plt Count Seg Neutrophils % Lymphocytes % Monocytes % Eosinophils % Basophils % Absolute Neutrophils Absolute Lymphocytes Absolute Monocytes Absolute Eosinophils Absolute Basophils Sodium 134.3 L Potassium 4.4 Chloride 103 Carbon Dioxide 21 L Anion Gap 10 BUN 43 H Creatinine 2.23 H Est GFR ( Amer) 25 L Est GFR (Non-Af Amer) 21 L Glucose 133 H Calcium 7.9 L Blood Type Antibody Screen 05/21/16 13:56 Catheterized Urine Urine Culture - Final Escherichia Coli Impressions: Abdomen/Pelvis CT 05/21/16 12:05 IMPRESSION: 1. Right femoral neck fracture. 2. Nonobstructing renal calculi. Chest X-Ray 05/22/16 00:00 IMPRESSION: Central line SVC. No pneumothorax. Fluoroscopy 05/22/16 00:00 IMPRESSION: Please see combined report for performance of procedure and radiologic supervision and interpretation. Hip/Pelvis X-Ray 05/22/16 12:12 IMPRESSION: SATISFACTORY POSTOPERATIVE right HIP. Femur X-Ray 05/22/16 12:55 IMPRESSION: Status post right total hip replacement is noted above. An oblique lucency is identified within the cortex of the femur just proximal to the distal end of the femoral component of the hip prosthesis which has the appearance of a nondisplaced fracture line. Clinical correlation is recommended. Other findings as noted above. Assessment & Plan - Diagnosis (1) Displaced fracture of right femoral neck Is this a current diagnosis for this admission?: YesPlan: Status post right hip hemiarthroplasty with ORIF femur fracture #1 hypotension patient currently on Levophed as per hospitalist recommendations #2 blood loss anemia some of which secondary to the extensive surgery also likely chronic in nature. Patient's hemoglobin has improved after 2 units packed red blood cells. We will continue to monitor. #3 physical therapy partial weightbearing right lower extremity with hip precautions
[2016-05-23] MEDS ORDERED: HYDROXYZINE PAMOATE 50 MG CAPSULE PO PRN (08:10)
[2016-05-23] MEDS: RINGERS SOLUTION,LACTATED 1,000 ML IV PRN ×2 (09:26→16:00)
--- NOTE | 2016-05-23 09:38 | PDOC PROGRESS REPORT ---
Subjective Progress Note for:: 05/23/16 Subjective:: This 81-year-old woman fell at home and presented to the emergency department on 05/21/2016. She was found to have a right femoral neck fracture. On 2016 she underwent right hip hemiarthroplasty and ORIF of the right femur by Dr. Cowan. The procedure was more extensive than initially planned. Postoperatively she developed hypotension despite the use of about 5 L of crystalloid IV fluid. A postoperative hemoglobin dropped to 7.4 from a preoperative 10.4. She was not making much urine. She was transferred to the ICU where she received 2 units of packed red blood cells and was started on a Levothroid drip. Overnight her hemodynamics have remained stable but she remains oliguric. Her Levothroid is down to 2 g. Her hemoglobin is up to 9.3 after 2 units of packed red blood cells. Her WBC is up to 23.3. Physical Exam Vital Signs: Temp Pulse Resp BP Pulse Ox 99.6 F 85 21 H 111/62 97 05/23/16 07:54 05/23/16 07:54 05/23/16 09:04 05/23/16 09:04 05/23/16 09:04 Intake & Output 05/22/16 05/23/16 05/24/16 06:59 06:59 06:59 Intake Total 1300 7950 Output Total 180 3554 10 Balance 1120 4396 -10 Weight 79.5 kg 85.1 kg Additional comments: General appearance: She remains drowsy. Head exam: PRESENT: atraumatic, normocephalic Eye exam: PRESENT: conjunctiva pink, EOMI, PERRLA. ABSENT: scleral icterus Ear exam: PRESENT: normal external ear exam Mouth exam: PRESENT: dry mucosa, tongue midline Neck exam: ABSENT: carotid bruit, JVD, lymphadenopathy, thyromegaly Respiratory exam: The chest now has congested, wheezy breath sounds. Cardiovascular exam: PRESENT: RRR. ABSENT: diastolic murmur, rubs, systolic murmur Pulses: PRESENT: normal dorsalis pedis pul Vascular exam: PRESENT: normal capillary refill GI/Abdominal exam: PRESENT: normal bowel sounds, soft. ABSENT: distended, guarding, mass, organolmegaly, rebound, tenderness Rectal exam: PRESENT: deferred Extremities exam: She is status post right hip ORIF. She is in an immobilizer. There is no peripheral edema. Neurological exam: PRESENT: alert, awake, oriented to person, oriented to place , other - benign tremor Psychiatric exam: PRESENT: appropriate affect, normal mood Skin exam: PRESENT: other - senile skin changes Results Laboratory Results: 05/23/16 04:50 05/23/16 04:50 05/22/16 05/22/16 05/23/16 14:40 17:10 04:50 WBC 26.8 H D 23.3 H RBC 2.51 L 3.11 L Hgb 7.4 L D 9.3 L Hct 23.1 L 27.8 L MCV 92 90 MCH 29.5 30.0 MCHC 32.1 33.5 RDW 15.2 H 14.4 H Plt Count 207 133 L Seg Neutrophils % Not Reportable Lymphocytes % Not Reportable Monocytes % Not Reportable Eosinophils % Not Reportable Basophils % Not Reportable Absolute Neutrophils Not Reportable Absolute Lymphocytes Not Reportable Absolute Monocytes Not Reportable Absolute Eosinophils Not Reportable Absolute Basophils Not Reportable Sodium Potassium Chloride Carbon Dioxide Anion Gap BUN Creatinine Est GFR ( Amer) Est GFR (Non-Af Amer) Glucose Calcium Blood Type B POSITIVE Antibody Screen NEGATIVE 05/23/16 04:50 WBC RBC Hgb Hct MCV MCH MCHC RDW Plt Count Seg Neutrophils % Lymphocytes % Monocytes % Eosinophils % Basophils % Absolute Neutrophils Absolute Lymphocytes Absolute Monocytes Absolute Eosinophils Absolute Basophils Sodium 134.3 L Potassium 4.4 Chloride 103 Carbon Dioxide 21 L Anion Gap 10 BUN 43 H Creatinine 2.23 H Est GFR ( Amer) 25 L Est GFR (Non-Af Amer) 21 L Glucose 133 H Calcium 7.9 L Blood Type Antibody Screen 05/21/16 20:57 Nasophary (Mrsa Only) MRSA Surveillance Culture - Final NO MRSA RECOVERED 05/21/16 13:56 Catheterized Urine Urine Culture - Final Escherichia Coli Impressions: Abdomen/Pelvis CT 05/21/16 12:05 IMPRESSION: 1. Right femoral neck fracture. 2. Nonobstructing renal calculi. Chest X-Ray 05/22/16 00:00 IMPRESSION: Central line SVC. No pneumothorax. Fluoroscopy 05/22/16 00:00 IMPRESSION: Please see combined report for performance of procedure and radiologic supervision and interpretation. Hip/Pelvis X-Ray 05/22/16 12:12 IMPRESSION: SATISFACTORY POSTOPERATIVE right HIP. Femur X-Ray 05/22/16 12:55 IMPRESSION: Status post right total hip replacement is noted above. An oblique lucency is identified within the cortex of the femur just proximal to the distal end of the femoral component of the hip prosthesis which has the appearance of a nondisplaced fracture line. Clinical correlation is recommended. Other findings as noted above. Assessment & Plan - Diagnosis (1) Fracture of femoral neck, right, closed Qualifiers: Encounter type: initial encounter Qualified Code(s): S72.001A - Fracture of unspecified part of neck of right femur, initial encounter for closed fracture Is this a current diagnosis for this admission?: YesPlan: She is now status post right hip hemiarthroplasty and ORIF of the right femur by Dr. Cowan on 05/22/2016. The procedure was more extensive than initially planned. (2) Blood loss, postoperative Qualifiers: Surgical complication system/body Area: musculoskeletal system Procedure type: musculoskeletal Qualified Code(s): M96.830 - Postprocedural hemorrhage of a musculoskeletal structure following a musculoskeletal system procedure Is this a current diagnosis for this admission?: YesPlan: Preoperative hemoglobin of 10.4 has fell to 7.4 after an uncomplicated but extensive orthopedic procedure. It has improved to 9.3 after 2 units of packed red blood cells. We will continue to monitor. (3) Hypotension Qualifiers: Hypotension type: postprocedural hypotension Qualified Code(s): I95.81 - Postprocedural hypotension Is this a current diagnosis for this admission?: YesPlan: The patient became significantly hypotensive postoperatively, and large part due to the surgical blood losses. She received at least 5 L of crystalloid IV fluid, 2 units of packed red blood cells, and was supported with Levophed. The Levophed is now in wean with hopes to be discontinued later today. (4) Essential hypertension Is this a current diagnosis for this admission?: YesPlan: She is hypotensive postoperatively. Her blood pressure medications are on hold. (5) Chronic kidney disease, stage III (moderate) Is this a current diagnosis for this admission?: YesPlan: She remains oliguric postoperatively. She has underlying chronic kidney disease stage III. Will involve nephrology. (6) Anemia of chronic disease Is this a current diagnosis for this admission?: Yes (7) Hyperlipidemia Qualifiers: Hyperlipidemia type: unspecified Qualified Code(s): E78.5 - Hyperlipidemia, unspecified Is this a current diagnosis for this admission?: Yes (8) Dementia Qualifiers: Dementia type: unspecified type Dementia behavioral disturbance: without behavioral disturbance Qualified Code(s): F03.90 - Unspecified dementia without behavioral disturbance Is this a current diagnosis for this admission?: Yes (9) Depression Qualifiers: Depression Type: unspecified Qualified Code(s): F32.9 - Major depressive disorder, single episode, unspecified Is this a current diagnosis for this admission?: Yes (10) Colitis Is this a current diagnosis for this admission?: No (11) Gastroesophageal reflux disease Qualifiers: Esophagitis presence: without esophagitis Qualified Code(s): K21.9 - Gastro-esophageal reflux disease without esophagitis Is this a current diagnosis for this admission?: Yes (12) Essential tremor Is this a current diagnosis for this admission?: Yes - Time Time Spent with patient: 35 or more minutes
[2016-05-23] MEDS: PANTOPRAZOLE SODIUM 40 MG VIAL IV SCH (09:57)
[2016-05-23] MEDS: SERTRALINE HCL 50 MG TABLET PO SCH ×2 (09:57→23:25)
[2016-05-23] MEDS: OXYBUTYNIN CHLORIDE 5 MG TABLET PO SCH ×2 (09:57→17:04)
[2016-05-23] MEDS: DOCUSATE SODIUM 100 MG CAPSULE PO SCH ×2 (09:58→17:04)
[2016-05-23] MEDS ORDERED: LEVOFLOXACIN 250 MG/D5W RTU 250 MG/50 ML RTUPB IV SCH (10:00)
[2016-05-23] MEDS: LIDOCAINE 5% (700 MG) TRANSDERMAL ADH..PATCH TOP SCH (10:58)
[2016-05-23] MEDS: ERTAPENEM SODIUM 0.5 GM in NORMAL SALINE 50 ML IV SCH (10:58)
[2016-05-23] MEDS: LEVOTHYROXINE SODIUM 0.15 MG TABLET PO SCH (15:38)
--- NOTE | 2016-05-23 19:52 | PDOC CONSULTATION ---
Consultation Consult Date: 05/23/16 Consult reason:: Acute on chronic kidney disease. History of Present Illness Admission Date/PCP: 05/21/16 13:12 SAMAN LEBLANC, History of Present Illness: LESTER NEFF is an 81 year old female who fell at home last night returning from the bathroom. Currently lethargic and unable to give a proper history. Therefore chart review was done and discussions were done with the treating nurse. No history to indicate dizziness or fainting. She apparently tripped over a chair. She suffered immediate pain to the right hip area. EMS was called but as they did not to see a lower extremity deformity, they did not bring her to the ED. She presents now several hours later because of persistent pain and inability to ambulate. In the emergency room x-rays demonstrated displaced femoral neck fracture. According the family her last dose pain medication was last evening. Prior to that she was complaining of pain worse with motion. Denies numbness or tingling. Has history of previous left hip fracture done approximately 12 years ago according to the family. Admission creatinine was 1.6 and now currently advising above 2. She underwent a right hip hemiarthroplasty with the ORIF of femur shaft fracture yesterday. She did drop her hemoglobin postoperatively and has been transfused 2 units. She is also now growing Escherichia coli in the urine and has been begun on appropriate antibiotics. She also became hypotensive and has been begun on Levophed. Past Medical History Cardiac Medical History: Reports: Heart Murmur, Hyperlipidemia, Hypertension- primary Denies: Coronary Artery Disease, Myocardial Infarction Pulmonary Medical History: Reports: Tuberculosis - hypo Denies: Asthma, Bronchitis, Chronic Obstructive Pulmonary Disease (COPD), Pneumonia Neurological Medical History: Denies: Seizures Endocrine Medical History: Reports: Hypothyroidism GI Medical History: Reports: Diverticulitis, Gastroesophageal Reflux Disease, Hiatal Hernia Musculoskeltal Medical History: Reports: Arthritis Psychiatric Medical History: Reports: Dementia, Depression Past Surgical History Past Surgical History: Reports: Appendectomy, Section, Cholecystectomy , Colostomy - then reversed, Hysterectomy, Orthopedic Surgery, Tubal Ligation Denies: Pacemaker Social History Smoking Status: Current Every Day Smoker Cigarettes Packs Per Day: 0.5 Cigars Per Day: 0 Pipes Per Day: 0 Number of Years Smokin Last Time Smoked: 05/20/2016 Frequency of Alcohol Use: None Hx Recreational Drug Use: No Drugs: None Hx Prescription Drug Abuse: No - Advance Directive Resuscitation Status: Full Code Family History Parental Family History Reviewed: No - unable to be obtained from the patient currently Children Family History Reviewed: No Sibling(s) Family History Reviewed.: No Medication/Allergy Home Medications: Aspirin [Aspirin 325 mg Tablet] 325 mg PO DAILY 05/21/16 Clonidine [Catapres-Tts 1 (0.1 mg/24 Hr) Transderm Patch] 0.1 mg TD TU@1000 Hydroxyzine Pamoate [Vistaril 25 mg Capsule] 2 cap PO HSP PRN 05/21/16 Lansoprazole [Prevacid] 15 mg PO QHS 05/21/16 Levothyroxine Sodium [Synthroid 0.15 mg Tablet] 150 mcg PO DAILY@1600 05/21/16 Lidocaine [Lidoderm 5% (700 mg) Transdermal Patch] 1 patch TD DAILY 05/21/16 Lorazepam 2 mg PO HSP 05/21/16 Losartan Potassium [Cozaar 50 mg Tablet] 100 mg PO DAILY 05/21/16 Oxybutynin Chloride [Ditropan 5 mg Tablet] 5 mg PO BID 05/21/16 Propranolol HCl [Inderal 40 mg Tablet] 80 mg PO BID 05/21/16 Rivastigmine [Exelon] 13.3 mg TD DAILY 05/21/16 Sertraline HCl [Zoloft] 100 mg PO BID 05/21/16 Simvastatin [Zocor 40 mg Tablet] 40 mg PO DAILY 05/21/16 Allergies/Adverse Reactions: morphine [Morphine] Allergy (Severe, Verified 04/13/16 08:41) swelling Penicillins Allergy (Severe, Verified 05/21/16 19:43) Swelling of Throat Iodinated Contrast Media - Oral and [IV Dye, Iodine Containing] Allergy ( Intermediate, Verified 04/13/16 08:41) RASH TO FACE, DIFFICULTY BREATHING Review of Systems Review of Systems: Unable to be obtained from the patient that she is quite lethargic postoperatively. Chart review was done. Physical Exam Vital Signs: Temp Pulse Resp BP Pulse Ox 100.0 F 89 22 H 97/66 L 98 05/23/16 18:00 05/23/16 18:00 05/23/16 18:34 05/23/16 18:34 05/23/16 18:34 Intake & Output 02/05/23/16 05/24/16 06:59 06:59 06:59 Intake Total 1300 7950 1740 Output Total 180 6424 115 Balance 1120 4396 1625 Weight 79.5 kg 85.1 kg General appearance: PRESENT: mild distress Eye exam: PRESENT: EOMI, PERRLA. ABSENT: periorbital swelling, scleral icterus Ear exam: PRESENT: normal external ear exam Neck exam: ABSENT: lymphadenopathy, meningismus, tenderness, thyromegaly, tracheal deviation Respiratory exam: PRESENT: clear to auscultation silvana. ABSENT: crackles, rhonchi Cardiovascular exam: PRESENT: +S1, +S2, systolic murmur GI/Abdominal exam: PRESENT: soft. ABSENT: distended, firm, tenderness Extremities exam: ABSENT: pedal edema Neurological exam: PRESENT: altered Skin exam: PRESENT: dry, warm. ABSENT: cyanosis, erythema, mottled Results Laboratory Results: 05/23/16 04:50 05/23/16 04:50 05/22/16 05/23/16 05/23/16 17:10 04:50 04:50 WBC 23.3 H RBC 3.11 L Hgb 9.3 L Hct 27.8 L MCV 90 MCH 30.0 MCHC 33.5 RDW 14.4 H Plt Count 133 L Seg Neutrophils % Not Reportable Lymphocytes % Not Reportable Monocytes % Not Reportable Eosinophils % Not Reportable Basophils % Not Reportable Absolute Neutrophils Not Reportable Absolute Lymphocytes Not Reportable Absolute Monocytes Not Reportable Absolute Eosinophils Not Reportable Absolute Basophils Not Reportable Sodium 134.3 L Potassium 4.4 Chloride 103 Carbon Dioxide 21 L Anion Gap 10 BUN 43 H Creatinine 2.23 H Est GFR ( Amer) 25 L Est GFR (Non-Af Amer) 21 L Glucose 133 H Calcium 7.9 L Blood Type B POSITIVE Antibody Screen NEGATIVE 05/21/16 20:57 Nasophary (Mrsa Only) MRSA Surveillance Culture - Final NO MRSA RECOVERED 05/21/16 13:56 Catheterized Urine Urine Culture - Final Escherichia Coli Impressions: Abdomen/Pelvis CT 05/21/16 12:05 IMPRESSION: 1. Right femoral neck fracture. 2. Nonobstructing renal calculi. Chest X-Ray 05/22/16 00:00 IMPRESSION: Central line SVC. No pneumothorax. Fluoroscopy 05/22/16 00:00 IMPRESSION: Please see combined report for performance of procedure and radiologic supervision and interpretation. Hip/Pelvis X-Ray 05/22/16 12:12 IMPRESSION: SATISFACTORY POSTOPERATIVE right HIP. Femur X-Ray 05/22/16 12:55 IMPRESSION: Status post right total hip replacement is noted above. An oblique lucency is identified within the cortex of the femur just proximal to the distal end of the femoral component of the hip prosthesis which has the appearance of a nondisplaced fracture line. Clinical correlation is recommended. Other findings as noted above. Assessment & Plan - Diagnosis (1) Acute kidney injury superimposed on chronic kidney disease Plan: Initial creatinine was 1.6. She baseline creatinine. However she has had a rising creatinine postadmission especially given her present status of hypertension which most likely is from a combination of factors includes including postoperative status, blood loss, Escherichia coli UTI and sepsis. Clinically she is on the dry side and will try to maintain her fluid status and appropriate fluid resuscitation. Orders have been placed for fluid resuscitation. Continue to monitor. No indications for renal replacement switch for which she would be a poor candidate. (2) Fracture of femoral neck, right, closed Qualifiers: Encounter type: initial encounter Qualified Code(s): S72.001A - Fracture of unspecified part of neck of right femur, initial encounter for closed fracture Is this a current diagnosis for this admission?: YesPlan: Status post surgery (3) Hypotension Qualifiers: Hypotension type: postprocedural hypotension Qualified Code(s): I95.81 - Postprocedural hypotension Is this a current diagnosis for this admission?: YesPlan: Multi-factorial including post operative status, perioperative blood loss and the blood transfusion, Escherichia coli UTI and sepsis. The patient is on Levophed but needed fluid resuscitation also. Orders have been modified. (4) Encephalopathy acute Plan: Multifactorial including postoperative status, hypertension induced from multiple factors including sepsis (5) Essential hypertension Is this a current diagnosis for this admission?: Yes (6) UTI (urinary tract infection) Qualifiers: Urinary tract infection type: site unspecified Hematuria presence: with hematuria Qualified Code(s): N39.0 - Urinary tract infection, site not specified Plan: Patient is on ertapenem. Monitor dose to appropriate renal functions.
[2016-05-23] MEDS: NORMAL SALINE 1000 ML 1,000 ML IV PRN (22:07)
[2016-05-23] MEDS: SIMVASTATIN 40 MG TABLET PO SCH (23:25)
[2016-05-23] MEDS: PHARMACY COMMUNICATION ORDER MC SCH (23:25)
[2016-05-23] MEDS: RIVAROXABAN 10 MG TABLET PO SCH (23:25)
[2016-05-24] MEDS ORDERED: FUROSEMIDE INJ/PF 20 MG/2 ML SDV IV ONE ×2 (01:30→10:05)
[2016-05-24] MEDS ORDERED: DEXTROSE 5%-WATER 250 ML with NOREPINEPHRINE BITARTRATE 4 MG IV PRN ×2 (01:45)
[2016-05-24] MEDS ORDERED: NOREPINEPHRINE BITARTRATE INJ/PF 4 MG/4 ML SDV IV ONE (01:50)
[2016-05-24] MEDS ORDERED: HYDROXYZINE PAMOATE 50 MG CAPSULE NG PRN (01:57)
[2016-05-24] MEDS ORDERED: LORAZEPAM 1 MG TABLET NG PRN ×2 (01:59→10:04)
[2016-05-24] MEDS ORDERED: PHARMACY COMMUNICATION ORDER MC NR ×2 (02:00→10:15)
[2016-05-24] MEDS: HYDROMORPHONE HCL INJ/PF 2 MG/ML AMPULE IV PRN (04:36)
[2016-05-24 04:55] LABS: ABSOLUTE LYMPHOCYTES (AUTO) 2.2 10^3/uL (0.5-4.7); ABSOLUTE MONOCYTES (AUTO) 1.1 10^3/uL (0.1-1.4); ABSOLUTE NEUT (AUTO) 12.9 10^3/uL (1.7-8.2); BASOPHILS % (AUTO) 0.1 % (0-2); HGB HCT DIFFERENCE 0.5; LYMPHOCYTES % (AUTO) 13.7 % (13-45); MEAN CORPUSCULAR HEMOGLOBIN 30.3 pg (27.0-33.4); MEAN CORPUSCULAR HGB CONC 34.1 g/dL (32.0-36.0); MEAN CORPUSCULAR VOLUME 89 fl (80-97); MONOCYTES % (AUTO) 6.6 % (3-13); RED BLOOD COUNT 2.47 10^6/uL (3.72-5.28); RED CELL DISTRIBUTION WIDTH 14.9 % (11.5-14.0); SEGMENTED NEUTROPHILS % (AUTO) 79.6 % (42-78); WHITE BLOOD COUNT 16.2 10^3/uL (4.0-10.5)
[2016-05-24 05:06] LABS: ANION GAP 9 (5-19); BLOOD UREA NITROGEN 57 mg/dL (7-20); CALCIUM 7.7 mg/dL (8.4-10.2); CARBON DIOXIDE 22 mmol/L (22-30); CHLORIDE 105 mmol/L (98-107); GLUCOSE 108 mg/dL (75-110); POTASSIUM 4.3 mmol/L (3.6-5.0); SODIUM 136.2 mmol/L (137-145)
[2016-05-24] MEDS ORDERED: RIVAROXABAN 10 MG TABLET ONE (05:13)
[2016-05-24 05:14] LABS: HEMOGLOBIN 7.5 g/dL (12.0-15.5)
[2016-05-24] MEDS ORDERED: NORMAL SALINE 250 ML IV PRN ×2 (06:03)
[2016-05-24] MEDS: NORMAL SALINE 1000 ML 1,000 ML IV PRN (07:20)
--- NOTE | 2016-05-24 07:43 | PDOC PROGRESS REPORT ---
Subjective Progress Note for:: 05/24/16 Subjective:: Patient seen and evaluated this morning. Continues to have pain with motion of the right hip. Blood pressures being maintained without pressures. Physical Exam Vital Signs: Temp Pulse Resp BP Pulse Ox 97.5 F 91 16 104/58 L 99 05/24/16 04:00 05/23/16 22:00 05/24/16 06:15 05/24/16 05:31 05/24/16 06:15 Intake & Output 05/23/16 05/24/16 05/25/16 06:59 06:59 06:59 Intake Total 7950 3223 Output Total 3554 665 Balance 4396 2558 Weight 85.1 kg 88.9 kg Musculoskeletal exam: PRESENT: other - Right hip: Pain with motion of the right hip. Current resting and internal rotation relatively unchanged to postoperative and preoperative position. intact plantar and dorsiflexion. Dressing clean/dry/intact no erythema or drainage. Mild thigh swellingsignificant ecchymosis. Results Laboratory Results: 05/24/16 04:45 05/24/16 04:45 05/22/16 05/23/16 05/24/16 17:10 04:50 04:45 WBC 23.3 H RBC 3.11 L Hgb 9.3 L Hct 27.8 L MCV 90 MCH 30.0 MCHC 33.5 RDW 14.4 H Plt Count 133 L Seg Neutrophils % Lymphocytes % Monocytes % Eosinophils % Basophils % Absolute Neutrophils Absolute Lymphocytes Absolute Monocytes Absolute Eosinophils Absolute Basophils Sodium 136.2 L Potassium 4.3 Chloride 105 Carbon Dioxide 22 Anion Gap 9 BUN 57 H Creatinine 2.30 H Est GFR ( Amer) 25 L Est GFR (Non-Af Amer) 20 L Glucose 108 Calcium 7.7 L Blood Type B POSITIVE Antibody Screen NEGATIVE 05/24/16 04:45 WBC 16.2 H RBC 2.47 L Hgb 7.5 L Hct 22.0 L MCV 89 MCH 30.3 MCHC 34.1 RDW 14.9 H Plt Count 107 L Seg Neutrophils % 79.6 H Lymphocytes % 13.7 Monocytes % 6.6 Eosinophils % 0.0 Basophils % 0.1 Absolute Neutrophils 12.9 H Absolute Lymphocytes 2.2 Absolute Monocytes 1.1 Absolute Eosinophils 0.0 Absolute Basophils 0.0 Sodium Potassium Chloride Carbon Dioxide Anion Gap BUN Creatinine Est GFR ( Amer) Est GFR (Non-Af Amer) Glucose Calcium Blood Type Antibody Screen 05/21/16 20:57 Nasophary (Mrsa Only) MRSA Surveillance Culture - Final NO MRSA RECOVERED 05/21/16 13:56 Catheterized Urine Urine Culture - Final Escherichia Coli Impressions: Abdomen/Pelvis CT 05/21/16 12:05 IMPRESSION: 1. Right femoral neck fracture. 2. Nonobstructing renal calculi. Chest X-Ray 05/22/16 00:00 IMPRESSION: Central line SVC. No pneumothorax. Fluoroscopy 05/22/16 00:00 IMPRESSION: Please see combined report for performance of procedure and radiologic supervision and interpretation. Hip/Pelvis X-Ray 05/22/16 12:12 IMPRESSION: SATISFACTORY POSTOPERATIVE right HIP. Femur X-Ray 05/22/16 12:55 IMPRESSION: Status post right total hip replacement is noted above. An oblique lucency is identified within the cortex of the femur just proximal to the distal end of the femoral component of the hip prosthesis which has the appearance of a nondisplaced fracture line. Clinical correlation is recommended. Other findings as noted above. KUB X-Ray 05/24/16 01:49 IMPRESSION: As above. Assessment & Plan - Diagnosis (1) Displaced fracture of right femoral neck Is this a current diagnosis for this admission?: YesPlan: Status post right hip hemiarthroplasty with ORIF femoral shaft fracture #1 acute blood loss anemia patient's hematocrit has once again decreased and will receive a third unit of RBCs. #2 pain control however difficult because does cause somnolence the patient. #3 acute on chronic kidney disease as per Dr. Gaviria #4 hypotension currently controlled without pressors.
[2016-05-24] MEDS ORDERED: NORMAL SALINE 1000 ML 2,000 ML IV ONE (09:59)
[2016-05-24] MEDS ORDERED: DOCUSATE SODIUM 100 MG/10 ML UDC NG SCH (10:00)
[2016-05-24] MEDS ORDERED: CLONIDINE 0.1 MG/24 HR PATCH.TDWK TD SCH (10:00)
[2016-05-24] MEDS: PANTOPRAZOLE SODIUM 40 MG VIAL IV SCH ×2 (10:00→22:21)
--- NOTE | 2016-05-24 10:24 | PDOC PROGRESS REPORT ---
Subjective Progress Note for:: 05/24/16 Subjective:: Unable to obtain review of systems from patient secondary to advanced dementia. Nursing reports large bowel movement yesterday. MAXIMUM TEMPERATURE last 24 hours is 100.2F at 1400 Physical Exam Vital Signs: Temp Pulse Resp BP Pulse Ox 97.3 F 86 17 105/62 99 05/24/16 08:00 05/24/16 08:00 05/24/16 08:00 05/24/16 08:00 05/24/16 08:00 Intake & Output 05/23/16 05/24/16 05/25/16 06:59 06:59 06:59 Intake Total 7950 3223 0 Output Total 3554 665 75 Balance 4396 2558 -75 Weight 85.1 kg 88.9 kg Exam: General: Awake, moaning, no acute respiratory distress HEENT: AT/NC, right eye minimally reactive, pupils round bilaterally, oropharynx is dry, pink, no scleral icterus, no conjunctival injection Neck: No JVD, trachea midline Chest: Clear to auscultation bilaterally, no wheezes rhonchi or rales CV: Regular rate and rhythm, normal S1 and S2, no murmur, rub, or gallop Abdomen: Soft, diffusely, mildly tender to palpation, nondistended, active bowel sounds; no rebound, rigidity, or guarding Extremities: No cyanosis, clubbing; generalized edema; right leg edematous, Results Laboratory Results: 05/24/16 04:45 05/24/16 04:45 05/22/16 05/24/16 05/24/16 17:10 04:45 04:45 WBC 16.2 H RBC 2.47 L Hgb 7.5 L Hct 22.0 L MCV 89 MCH 30.3 MCHC 34.1 RDW 14.9 H Plt Count 107 L Seg Neutrophils % 79.6 H Lymphocytes % 13.7 Monocytes % 6.6 Eosinophils % 0.0 Basophils % 0.1 Absolute Neutrophils 12.9 H Absolute Lymphocytes 2.2 Absolute Monocytes 1.1 Absolute Eosinophils 0.0 Absolute Basophils 0.0 Sodium 136.2 L Potassium 4.3 Chloride 105 Carbon Dioxide 22 Anion Gap 9 BUN 57 H Creatinine 2.30 H Est GFR ( Amer) 25 L Est GFR (Non-Af Amer) 20 L Glucose 108 Calcium 7.7 L Blood Type B POSITIVE Antibody Screen NEGATIVE 05/21/16 20:57 Nasophary ([facility] Only) MRSA Surveillance Culture - Final NO MRSA RECOVERED 05/21/16 13:56 Catheterized Urine Urine Culture - Final Escherichia Coli Impressions: Abdomen/Pelvis CT 05/21/16 12:05 IMPRESSION: 1. Right femoral neck fracture. 2. Nonobstructing renal calculi. Chest X-Ray 05/22/16 00:00 IMPRESSION: Central line SVC. No pneumothorax. Fluoroscopy 05/22/16 00:00 IMPRESSION: Please see combined report for performance of procedure and radiologic supervision and interpretation. Hip/Pelvis X-Ray 05/22/16 12:12 IMPRESSION: SATISFACTORY POSTOPERATIVE right HIP. Femur X-Ray 05/22/16 12:55 IMPRESSION: Status post right total hip replacement is noted above. An oblique lucency is identified within the cortex of the femur just proximal to the distal end of the femoral component of the hip prosthesis which has the appearance of a nondisplaced fracture line. Clinical correlation is recommended. Other findings as noted above. KUB X-Ray 05/24/16 01:49 IMPRESSION: As above. Assessment & Plan - Diagnosis (1) Acute blood loss as cause of postoperative anemia Is this a current diagnosis for this admission?: YesPlan: Will obtain occult blood. Will transfuse patient 2 units packed red blood cells. Will give Lasix in between. Have considered DIC as source of bleed although unlikely. (2) Sepsis Qualifiers: Sepsis type: Escherichia coli Qualified Code(s): A41.51 - Sepsis due to Escherichia coli [E. coli] Is this a current diagnosis for this admission?: YesPlan: Patient with Escherichia coli urinary tract infection and subsequent combined septic shock and hypovolemic shock. Currently on ertapenem doing well and will consider adding something for Gram-positive coverage such as linezolid. (3) Acute kidney injury superimposed on chronic kidney disease Is this a current diagnosis for this admission?: YesPlan: Have consulted Dr. Alex Gaviria, nephrology, for guidance on patient's acute kidney injury. Will obtain ultrasound of the kidneys as there was a nonobstructing stone visible on CT. (4) Displaced fracture of right femoral neck Is this a current diagnosis for this admission?: YesPlan: Will defer this and all issues arising from her fracture to the surgical team. (5) Hypotension Qualifiers: Hypotension type: postprocedural hypotension Qualified Code(s): I95.81 - Postprocedural hypotension Is this a current diagnosis for this admission?: YesPlan: Patient currently normotensive and will attempt to maintain a map greater than 65. Patient appears to need volume resuscitation. Will continue volume resuscitation and use Levophed as needed. (6) Hypothyroid Qualifiers: Hypothyroidism type: acquired Qualified Code(s): E03.9 - Hypothyroidism, unspecified Is this a current diagnosis for this admission?: YesPlan: Continue Synthroid. Will check a TSH. (7) Anemia of chronic disease Is this a current diagnosis for this admission?: Yes (8) Chronic kidney disease, stage III (moderate) Is this a current diagnosis for this admission?: Yes (9) Dementia Qualifiers: Dementia type: unspecified type Dementia behavioral disturbance: without behavioral disturbance Qualified Code(s): F03.90 - Unspecified dementia without behavioral disturbance Is this a current diagnosis for this admission?: YesPlan: Will continue patient's home medications. Continue supportive care. (10) Gastroesophageal reflux disease Qualifiers: Esophagitis presence: without esophagitis Qualified Code(s): K21.9 - Gastro-esophageal reflux disease without esophagitis Is this a current diagnosis for this admission?: YesPlan: Patient currently on Protonix and have increased this to twice a day. (11) Hyperlipidemia Qualifiers: Hyperlipidemia type: unspecified Qualified Code(s): E78.5 - Hyperlipidemia, unspecified Is this a current diagnosis for this admission?: Yes (12) UTI (urinary tract infection) Qualifiers: Urinary tract infection type: site unspecified Hematuria presence: with hematuria Qualified Code(s): N39.0 - Urinary tract infection, site not specified Is this a current diagnosis for this admission?: YesPlan: Patient currently with Escherichia coli UTI receiving Invanz day #3. - Time Time Spent with patient: 35 or more minutes Medications reviewed and adjusted accordingly: Yes Anticipated discharge: Acute Rehab
[2016-05-24] MEDS: SERTRALINE HCL 50 MG TABLET NG SCH ×2 (11:27→23:27)
[2016-05-24] MEDS: DOCUSATE SODIUM 100 MG CAPSULE PO SCH ×2 (11:27→17:17)
[2016-05-24] MEDS: OXYCODONE HCL IR 5 MG TABLET NG PRN ×2 (11:28→15:31)
[2016-05-24] MEDS: LIDOCAINE 5% (700 MG) TRANSDERMAL ADH..PATCH TOP SCH (11:32)
[2016-05-24] MEDS: ERTAPENEM SODIUM 0.5 GM in NORMAL SALINE 50 ML IV SCH (11:33)
[2016-05-24 12:03] LABS: APPEARANCE,URINE SLIGHTLY-CLOUDY; BILIRUBIN,URINE NEGATIVE (NEGATIVE); GLUCOSE, URINE NEGATIVE (NEGATIVE); KETONES,URINE NEGATIVE (NEGATIVE); LEUKOCYTE ESTERASE,URINE NEGATIVE (NEGATIVE); NITRITE,URINE NEGATIVE (NEGATIVE); PROTEIN,URINE 30 mg/dL (NEGATIVE); URINE SPECIFIC GRAVITY 1.012; UROBILINOGEN,URINE NEGATIVE mg/dL (<2.0)
[2016-05-24] MEDS: ALBUMIN HUMAN 50 ML IV SCH ×4 (12:24→14:30)
[2016-05-24 14:36] LABS: PROTHROMBIN TIME 22.3 SEC (11.4-15.4)
[2016-05-24 15:03] LABS: ABSOLUTE LYMPHOCYTES (AUTO) 1.9 10^3/uL (0.5-4.7); ABSOLUTE MONOCYTES (AUTO) 1.1 10^3/uL (0.1-1.4); ABSOLUTE NEUT (AUTO) 12.8 10^3/uL (1.7-8.2); EOSINOPHILS % (AUTO) 0.1 % (0-6); HEMATOCRIT 24.5 % (36.0-47.0); HEMOGLOBIN 8.4 g/dL (12.0-15.5); HGB HCT DIFFERENCE 0.7; LYMPHOCYTES % (AUTO) 11.9 % (13-45); MEAN CORPUSCULAR HEMOGLOBIN 30.1 pg (27.0-33.4); MEAN CORPUSCULAR HGB CONC 34.4 g/dL (32.0-36.0); MEAN CORPUSCULAR VOLUME 88 fl (80-97); RED CELL DISTRIBUTION WIDTH 14.8 % (11.5-14.0); WHITE BLOOD COUNT 15.8 10^3/uL (4.0-10.5)
[2016-05-24] MEDS: LEVOTHYROXINE SODIUM 0.15 MG TABLET NG SCH (15:06)
--- NOTE | 2016-05-24 16:48 | PDOC PROGRESS REPORT ---
Subjective Progress Note for:: 05/24/16 Subjective:: Patient seen in the ICU today. She still remains lethargic and does not answer to questions appropriately. She is also moaning and groaning. Discussed with the treating nurse and she had a large bowel movement yesterday. No history of any chest pain shortness of breath. Medications were reviewed with the treating nurse as well as the labs. Physical Exam Vital Signs: Temp Pulse Resp BP Pulse Ox 97.9 F 95 18 115/69 99 05/24/16 16:00 05/24/16 16:00 05/24/16 16:00 05/24/16 16:00 05/24/16 16:00 Intake & Output 05/23/16 05/24/16 05/25/16 06:59 06:59 06:59 Intake Total 7950 3223 410 Output Total 3554 665 950 Balance 4396 2558 -540 Weight 85.1 kg 88.9 kg General appearance: PRESENT: mild distress Respiratory exam: PRESENT: clear to auscultation silvana. ABSENT: crackles, rhonchi Cardiovascular exam: PRESENT: +S1, +S2, systolic murmur GI/Abdominal exam: PRESENT: soft. ABSENT: distended, firm, tenderness Neurological exam: PRESENT: altered Skin exam: PRESENT: dry. ABSENT: erythema, mottled, rash Results Laboratory Results: 05/24/16 12:50 05/24/16 04:45 05/22/16 05/24/16 05/24/16 17:10 04:45 04:45 WBC 16.2 H RBC 2.47 L Hgb 7.5 L Hct 22.0 L MCV 89 MCH 30.3 MCHC 34.1 RDW 14.9 H Plt Count 107 L Seg Neutrophils % 79.6 H Lymphocytes % 13.7 Monocytes % 6.6 Eosinophils % 0.0 Basophils % 0.1 Absolute Neutrophils 12.9 H Absolute Lymphocytes 2.2 Absolute Monocytes 1.1 Absolute Eosinophils 0.0 Absolute Basophils 0.0 Sodium 136.2 L Potassium 4.3 Chloride 105 Carbon Dioxide 22 Anion Gap 9 BUN 57 H Creatinine 2.30 H Est GFR ( Amer) 25 L Est GFR (Non-Af Amer) 20 L Glucose 108 Calcium 7.7 L Albumin TSH Urine Color Urine Appearance Urine pH Ur Specific [place] Urine Protein Urine Glucose (UA) Urine Ketones Urine Blood Urine Nitrite Ur Leukocyte Esterase Urine WBC (Auto) Urine RBC (Auto) Blood Type B POSITIVE Antibody Screen NEGATIVE 05/24/16 05/24/16 05/24/16 11:10 12:00 12:00 WBC RBC Hgb Hct MCV MCH MCHC RDW Plt Count Seg Neutrophils % Lymphocytes % Monocytes % Eosinophils % Basophils % Absolute Neutrophils Absolute Lymphocytes Absolute Monocytes Absolute Eosinophils Absolute Basophils Sodium Potassium Chloride Carbon Dioxide Anion Gap BUN Creatinine Est GFR ( Amer) Est GFR (Non-Af Amer) Glucose Calcium Albumin 2.2 L TSH 2.64 Urine Color YELLOW Urine Appearance SLIGHTLY-CLOUDY Urine pH 5.0 Ur Specific [place] 1.012 Urine Protein 30 H Urine Glucose (UA) NEGATIVE Urine Ketones NEGATIVE Urine Blood LARGE H Urine Nitrite NEGATIVE Ur Leukocyte Esterase NEGATIVE Urine WBC (Auto) 10 Urine RBC (Auto) >182 Blood Type Antibody Screen 05/24/16 12:50 WBC 15.8 H RBC 2.80 L Hgb 8.4 L Hct 24.5 L MCV 88 MCH 30.1 MCHC 34.4 RDW 14.8 H Plt Count 100 L Seg Neutrophils % 81.0 H Lymphocytes % 11.9 L Monocytes % 7.0 Eosinophils % 0.1 Basophils % 0.0 Absolute Neutrophils 12.8 H Absolute Lymphocytes 1.9 Absolute Monocytes 1.1 Absolute Eosinophils 0.0 Absolute Basophils 0.0 Sodium Potassium Chloride Carbon Dioxide Anion Gap BUN Creatinine Est GFR ( Amer) Est GFR (Non-Af Amer) Glucose Calcium Albumin TSH Urine Color Urine Appearance Urine pH Ur Specific [place] Urine Protein Urine Glucose (UA) Urine Ketones Urine Blood Urine Nitrite Ur Leukocyte Esterase Urine WBC (Auto) Urine RBC (Auto) Blood Type Antibody Screen Impressions: Abdomen/Pelvis CT 05/21/16 12:05 IMPRESSION: 1. Right femoral neck fracture. 2. Nonobstructing renal calculi. Fluoroscopy 05/22/16 00:00 IMPRESSION: Please see combined report for performance of procedure and radiologic supervision and interpretation. Hip/Pelvis X-Ray 05/22/16 12:12 IMPRESSION: SATISFACTORY POSTOPERATIVE right HIP. Femur X-Ray 05/22/16 12:55 IMPRESSION: Status post right total hip replacement is noted above. An oblique lucency is identified within the cortex of the femur just proximal to the distal end of the femoral component of the hip prosthesis which has the appearance of a nondisplaced fracture line. Clinical correlation is recommended. Other findings as noted above. Chest X-Ray 05/24/16 00:00 IMPRESSION: Right subclavian central line tip superior vena cava. No pneumothorax. Nasogastric tube tip and side port in the stomach Stable mild cardiomegaly KUB X-Ray 05/24/16 01:49 IMPRESSION: As above. Assessment & Plan - Diagnosis (1) Acute kidney injury superimposed on chronic kidney disease Is this a current diagnosis for this admission?: YesPlan: Renal numbers are stable. Her urine output has dropped some and will have to be monitored. Reviewed CT scan of her abdomen earlier which had not shown any obstructive nephropathy. Continue on fluid resuscitation which needs to be increased and I discussed this with Dr. Shaw. Blood pressure is not appropriate , then advised to start a low-dose of Levophed. (2) Fracture of femoral neck, right, closed Qualifiers: Encounter type: initial encounter Qualified Code(s): S72.001A - Fracture of unspecified part of neck of right femur, initial encounter for closed fracture Is this a current diagnosis for this admission?: YesPlan: Status post surgery (3) Hypotension Qualifiers: Hypotension type: postprocedural hypotension Qualified Code(s): I95.81 - Postprocedural hypotension Is this a current diagnosis for this admission?: YesPlan: Multi-factorial including post operative status, perioperative blood loss and the blood transfusion, Escherichia coli UTI and sepsis. The patient is off Levophed and on fluid resuscitation also. Orders have been modified.Discussed with Dr. Shaw. (4) Encephalopathy acute Plan: Multifactorial including postoperative status, hypotension induced from multiple factors including sepsis (5) Essential hypertension Is this a current diagnosis for this admission?: Yes (6) UTI (urinary tract infection) Qualifiers: Urinary tract infection type: site unspecified Hematuria presence: with hematuria Qualified Code(s): N39.0 - Urinary tract infection, site not specified Is this a current diagnosis for this admission?: YesPlan: Patient is on ertapenem. Monitor dose to appropriate renal functions.
[2016-05-24] MEDS: LACTOBACILLUS ACIDOPHILUS 250 MG TAB NG SCH (17:16)
[2016-05-24] MEDS ORDERED: RIVAROXABAN 10 MG TABLET NG SCH (22:00)
[2016-05-24] MEDS: SIMVASTATIN 40 MG TABLET NG SCH (23:27)
[2016-05-25] MEDS: OXYCODONE HCL IR 5 MG TABLET NG PRN ×4 (00:55→22:41)
[2016-05-25] MEDS: PHARMACY COMMUNICATION ORDER MC SCH ×2 (04:11→21:56)
[2016-05-25 06:19] LABS: HEMATOCRIT 22.7 % (36.0-47.0); HGB HCT DIFFERENCE 0.4; MEAN CORPUSCULAR HEMOGLOBIN 29.9 pg (27.0-33.4); MEAN CORPUSCULAR VOLUME 88 fl (80-97); RED BLOOD COUNT 2.58 10^6/uL (3.72-5.28); RED CELL DISTRIBUTION WIDTH 15.2 % (11.5-14.0); WHITE BLOOD COUNT 14.5 10^3/uL (4.0-10.5)
[2016-05-25 06:29] LABS: HEMOGLOBIN 7.7 g/dL (12.0-15.5)
[2016-05-25] MEDS ORDERED: NORMAL SALINE 250 ML IV PRN ×2 (07:35)
[2016-05-25] MEDS ORDERED: FUROSEMIDE INJ/PF 40 MG/4 ML SDV IV PRN (07:35)
[2016-05-25] MEDS ORDERED: PHYTONADIONE INJ 10 MG/1 ML AMPULE SUBCUT ONE (08:30)
[2016-05-25 09:19] LABS: ALANINE AMINOTRANSFERASE 20 U/L (9-52); ALBUMIN 2.5 g/dL (3.5-5.0); ALKALINE PHOSPHATASE 81 U/L (38-126); ANION GAP 10 (5-19); ASPARTATE AMINO TRANSFERASE 47 U/L (14-36); BILIRUBIN,TOTAL 1.1 mg/dL (0.2-1.3); BLOOD UREA NITROGEN 55 mg/dL (7-20); CALCIUM 8.1 mg/dL (8.4-10.2); CARBON DIOXIDE 24 mmol/L (22-30); CHLORIDE 105 mmol/L (98-107); CREATININE RESULT 1.71 mg/dL (0.52-1.25); GLUCOSE 117 mg/dL (75-110); POTASSIUM 3.3 mmol/L (3.6-5.0); SODIUM 139.3 mmol/L (137-145); TOTAL PROTEIN 5.3 g/dL (6.3-8.2)
[2016-05-25 09:32] LABS: PROTHROMBIN TIME 18.3 SEC (11.4-15.4)
[2016-05-25 09:33] LABS: FIBRINOGEN 582 mg/dL (209-497); PARTIAL THROMBOPLASTIN TIME 41.1 SEC (23.5-35.8)
[2016-05-25] MEDS ORDERED: MINERAL OIL ENEMA 133 ML PR ONE (10:00)
[2016-05-25] MEDS ORDERED: POTASSIUM CHLORIDE 20 MEQ/15 ML UDCUP NG ONE (10:00)
[2016-05-25] MEDS ORDERED: LORAZEPAM 0.5 MG TABLET NG ONE (10:00)
[2016-05-25] MEDS: LACTOBACILLUS ACIDOPHILUS 250 MG TAB NG SCH ×2 (10:27→17:29)
[2016-05-25] MEDS: PANTOPRAZOLE SODIUM 40 MG VIAL IV SCH ×2 (10:27→21:54)
[2016-05-25] MEDS: DOCUSATE SODIUM 100 MG CAPSULE PO SCH ×2 (10:28→17:29)
[2016-05-25] MEDS: SERTRALINE HCL 50 MG TABLET NG SCH ×2 (10:28→21:54)
[2016-05-25] MEDS: LIDOCAINE 5% (700 MG) TRANSDERMAL ADH..PATCH TOP SCH (10:31)
[2016-05-25] MEDS: ERTAPENEM SODIUM 0.5 GM in NORMAL SALINE 50 ML IV SCH (10:42)
[2016-05-25] MEDS ORDERED: NORMAL SALINE 1000 ML 1,000 ML IV PRN (15:22)
--- NOTE | 2016-05-25 16:26 | PDOC PROGRESS REPORT ---
Subjective Progress Note for:: 05/25/16 Subjective:: Patient was seen in the ICU today. She remains comfortable but is confused and disoriented. She is unable to contribute to a proper history. Therefore discussions were done with the treating nurse Vinny. Apparently patient has been remaining stable hemodynamically over the last 24 hours. Her urine output also has increased considerably. She is relatively stable given the given circumstances so far. Physical Exam Vital Signs: Temp Pulse Resp BP Pulse Ox 97.8 F 82 22 H 145/67 H 100 05/25/16 13:40 05/25/16 10:00 05/25/16 06:15 05/25/16 06:00 05/25/16 06:15 Intake & Output 05/24/16 05/25/16 05/26/16 06:59 06:59 06:59 Intake Total 3223 1995 600 Output Total 665 3275 270 Balance 2558 -1280 330 Weight 88.9 kg 91.8 kg General appearance: PRESENT: no acute distress Respiratory exam: PRESENT: clear to auscultation silvana. ABSENT: crackles, rhonchi Cardiovascular exam: PRESENT: +S1, +S2, systolic murmur GI/Abdominal exam: PRESENT: soft. ABSENT: distended, firm, tenderness Extremities exam: ABSENT: pedal edema Neurological exam: PRESENT: awake. ABSENT: oriented to person, oriented to place, oriented to time Skin exam: PRESENT: dry. ABSENT: erythema, mottled, rash Results Laboratory Results: 05/25/16 05:34 05/25/16 08:40 05/22/16 05/25/16 05/25/16 17:10 05:34 08:40 WBC 14.5 H RBC 2.58 L Hgb 7.7 L Hct 22.7 L MCV 88 MCH 29.9 MCHC 34.0 RDW 15.2 H Plt Count 92 L Sodium 139.3 Potassium 3.3 L Chloride 105 Carbon Dioxide 24 Anion Gap 10 BUN 55 H Creatinine 1.71 H Est GFR ( Amer) 35 L Est GFR (Non-Af Amer) 29 L Glucose 117 H Calcium 8.1 L Total Bilirubin 1.1 AST 47 H ALT 20 Alkaline Phosphatase 81 Total Protein 5.3 L Albumin 2.5 L Stool Occult Blood Blood Type B POSITIVE Antibody Screen NEGATIVE 05/25/16 09:15 WBC RBC Hgb Hct MCV MCH MCHC RDW Plt Count Sodium Potassium Chloride Carbon Dioxide Anion Gap BUN Creatinine Est GFR ( Amer) Est GFR (Non-Af Amer) Glucose Calcium Total Bilirubin AST ALT Alkaline Phosphatase Total Protein Albumin Stool Occult Blood POSITIVE Blood Type Antibody Screen Impressions: Abdomen/Pelvis CT 05/21/16 12:05 IMPRESSION: 1. Right femoral neck fracture. 2. Nonobstructing renal calculi. Fluoroscopy 05/22/16 00:00 IMPRESSION: Please see combined report for performance of procedure and radiologic supervision and interpretation. Hip/Pelvis X-Ray 05/22/16 12:12 IMPRESSION: SATISFACTORY POSTOPERATIVE right HIP. Femur X-Ray 05/22/16 12:55 IMPRESSION: Status post right total hip replacement is noted above. An oblique lucency is identified within the cortex of the femur just proximal to the distal end of the femoral component of the hip prosthesis which has the appearance of a nondisplaced fracture line. Clinical correlation is recommended. Other findings as noted above. Chest X-Ray 05/25/16 00:00 IMPRESSION: 1. Support tubes and lines as above. 2. Mild cardiomegaly without congestion. No focal opacities. KUB X-Ray 05/25/16 00:00 IMPRESSION: No significant changes from prior study. Renal Ultrasound 05/25/16 00:00 IMPRESSION: Right nephrolithiasis. Bilateral renal atrophy. Assessment & Plan - Diagnosis (1) Acute kidney injury superimposed on chronic kidney disease Is this a current diagnosis for this admission?: YesPlan: Nonoliguric. Her renal numbers also improving which is quite encouraging. We will continue on present lines of management (2) Fracture of femoral neck, right, closed Qualifiers: Encounter type: initial encounter Qualified Code(s): S72.001A - Fracture of unspecified part of neck of right femur, initial encounter for closed fracture Is this a current diagnosis for this admission?: Yes (3) Hypotension Qualifiers: Hypotension type: postprocedural hypotension Qualified Code(s): I95.81 - Postprocedural hypotension Is this a current diagnosis for this admission?: YesPlan: Stable on on current medications and treatments. (4) Encephalopathy acute Plan: Status quo. Hopefully she should improve once as she gets better. Multifactorial. (5) Essential hypertension Is this a current diagnosis for this admission?: Yes (6) UTI (urinary tract infection) Qualifiers: Urinary tract infection type: site unspecified Hematuria presence: with hematuria Qualified Code(s): N39.0 - Urinary tract infection, site not specified Is this a current diagnosis for this admission?: YesPlan: Patient is on ertapenem. Monitor dose to appropriate renal functions.
--- NOTE | 2016-05-25 17:23 | PDOC PROGRESS REPORT ---
Subjective Progress Note for:: 05/25/16 Subjective:: Patient seen on morning rounds. No acute events overnight. Unable to obtain review of systems secondary to encephalopathy and baseline dementia. Family reports that patient did wake up and say that she loved them. Physical Exam Vital Signs: Temp Pulse Resp BP Pulse Ox 97.9 F 87 22 H 145/67 H 100 05/24/16 16:00 05/25/16 06:00 05/25/16 06:15 05/25/16 06:00 05/25/16 06:15 Intake & Output 05/24/16 05/25/16 05/26/16 06:59 06:59 06:59 Intake Total 3223 1994 Output Total 665 3275 Balance 2558 -1280 Weight 88.9 kg 91.8 kg Exam: General: Awake, moaning, no acute respiratory distress HEENT: AT/NC, PERRL, oropharynx is moist, pink, no scleral icterus, no conjunctival injection Neck: No JVD, trachea midline Chest: Clear to auscultation bilaterally, no wheezes rhonchi or rales CV: Regular rate and rhythm, normal S1 and S2, no murmur, rub, or gallop Abdomen: Soft, diffusely, mildly tender to palpation, mildly distended, hypoactive bowel sounds; no rebound, rigidity, or guarding Extremities: No cyanosis, clubbing; generalized edema; right leg edematous, dressing in place clean dry and intact Neuro: Moves bilateral upper extremities and head does not answer orientation questions or follow commands Results Laboratory Results: 05/25/16 05:34 05/24/16 04:45 05/22/16 05/24/16 05/24/16 17:10 11:10 12:00 WBC RBC Hgb Hct MCV MCH MCHC RDW Plt Count Seg Neutrophils % Lymphocytes % Monocytes % Eosinophils % Basophils % Absolute Neutrophils Absolute Lymphocytes Absolute Monocytes Absolute Eosinophils Absolute Basophils Albumin 2.2 L TSH Urine Color YELLOW Urine Appearance SLIGHTLY-CLOUDY Urine pH 5.0 Ur Specific Rock 1.012 Urine Protein 30 H Urine Glucose (UA) NEGATIVE Urine Ketones NEGATIVE Urine Blood LARGE H Urine Nitrite NEGATIVE Ur Leukocyte Esterase NEGATIVE Urine WBC (Auto) 10 Urine RBC (Auto) >182 Blood Type B POSITIVE Antibody Screen NEGATIVE 05/24/16 05/24/16 05/25/16 12:00 12:50 05:34 WBC 15.8 H 14.5 H RBC 2.80 L 2.58 L Hgb 8.4 L 7.7 L Hct 24.5 L 22.7 L MCV 88 88 MCH 30.1 29.9 MCHC 34.4 34.0 RDW 14.8 H 15.2 H Plt Count 100 L 92 L Seg Neutrophils % 81.0 H Lymphocytes % 11.9 L Monocytes % 7.0 Eosinophils % 0.1 Basophils % 0.0 Absolute Neutrophils 12.8 H Absolute Lymphocytes 1.9 Absolute Monocytes 1.1 Absolute Eosinophils 0.0 Absolute Basophils 0.0 Albumin TSH 2.64 Urine Color Urine Appearance Urine pH Ur Specific Rock Urine Protein Urine Glucose (UA) Urine Ketones Urine Blood Urine Nitrite Ur Leukocyte Esterase Urine WBC (Auto) Urine RBC (Auto) Blood Type Antibody Screen Impressions: Abdomen/Pelvis CT 05/21/16 12:05 IMPRESSION: 1. Right femoral neck fracture. 2. Nonobstructing renal calculi. Fluoroscopy 05/22/16 00:00 IMPRESSION: Please see combined report for performance of procedure and radiologic supervision and interpretation. Hip/Pelvis X-Ray 05/22/16 12:12 IMPRESSION: SATISFACTORY POSTOPERATIVE right HIP. Femur X-Ray 05/22/16 12:55 IMPRESSION: Status post right total hip replacement is noted above. An oblique lucency is identified within the cortex of the femur just proximal to the distal end of the femoral component of the hip prosthesis which has the appearance of a nondisplaced fracture line. Clinical correlation is recommended. Other findings as noted above. Chest X-Ray 05/24/16 00:00 IMPRESSION: Right subclavian central line tip superior vena cava. No pneumothorax. Nasogastric tube tip and side port in the stomach Stable mild cardiomegaly KUB X-Ray 05/24/16 01:49 IMPRESSION: As above. Renal Ultrasound 05/25/16 00:00 IMPRESSION: Right nephrolithiasis. Bilateral renal atrophy. Assessment & Plan - Diagnosis (1) Acute blood loss as cause of postoperative anemia Is this a current diagnosis for this admission?: YesPlan: Pending occult blood. Patient currently with additionally delutional anemia. Will transfuse patient 2 units packed red blood cells. Will give Lasix in between. Have obtained fibrinogen and fibrinogen degradation products which are normal in point away from DIC. (2) Sepsis Qualifiers: Sepsis type: Escherichia coli Qualified Code(s): A41.51 - Sepsis due to Escherichia coli [E. coli] Is this a current diagnosis for this admission?: YesPlan: Patient with Escherichia coli urinary tract infection and subsequent combined septic shock and hypovolemic shock. Currently on ertapenem day #4 doing well. (3) Acute kidney injury superimposed on chronic kidney disease Is this a current diagnosis for this admission?: YesPlan: Improving. Appreciate Dr. Alex Gaviria, nephrology, for guidance on patient's acute kidney injury. Ultrasound reveals mildly atrophic kidneys without obstructing stone. (4) Displaced fracture of right femoral neck Is this a current diagnosis for this admission?: YesPlan: Will defer this and all issues arising from her fracture to the surgical team. (5) Hypotension Qualifiers: Hypotension type: postprocedural hypotension Qualified Code(s): I95.81 - Postprocedural hypotension Is this a current diagnosis for this admission?: YesPlan: Patient currently normotensive and will attempt to maintain a map greater than 65. (6) Hypothyroid Qualifiers: Hypothyroidism type: acquired Qualified Code(s): E03.9 - Hypothyroidism, unspecified Is this a current diagnosis for this admission?: YesPlan: Continue Synthroid. TSH is normal (7) Anemia of chronic disease Is this a current diagnosis for this admission?: Yes (8) Chronic kidney disease, stage III (moderate) Is this a current diagnosis for this admission?: Yes (9) Dementia Qualifiers: Dementia type: unspecified type Dementia behavioral disturbance: without behavioral disturbance Qualified Code(s): F03.90 - Unspecified dementia without behavioral disturbance Is this a current diagnosis for this admission?: Yes (10) Gastroesophageal reflux disease Qualifiers: Esophagitis presence: without esophagitis Qualified Code(s): K21.9 - Gastro-esophageal reflux disease without esophagitis Is this a current diagnosis for this admission?: Yes (11) Hyperlipidemia Qualifiers: Hyperlipidemia type: unspecified Qualified Code(s): E78.5 - Hyperlipidemia, unspecified Is this a current diagnosis for this admission?: Yes (12) UTI (urinary tract infection) Qualifiers: Urinary tract infection type: site unspecified Hematuria presence: with hematuria Qualified Code(s): N39.0 - Urinary tract infection, site not specified Is this a current diagnosis for this admission?: Yes (13) Acute metabolic encephalopathy Is this a current diagnosis for this admission?: YesPlan: Slightly likely multifactorial secondary to sepsis, dementia, acute renal failure, benzodiazepine withdrawal, and ICU psychosis. Continue supportive care. (14) Thrombocytopenia Is this a current diagnosis for this admission?: YesPlan: Likely secondary to underlying sepsis. Have held heparin and sent I hit antibodies. Hold anticoagulation at this time due to active bleeding (15) Coagulopathy Is this a current diagnosis for this admission?: YesPlan: We'll give patient vitamin K. 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 (16) protein calorie malnourishment Is this a current diagnosis for this admission?: YesPlan: Patient has an albumin of 2.2. Are giving patient tube feeds at this time via NG. Patient appears to be quite profoundly weak. (17) Morbid obesity Qualifiers: Obesity type: due to excess calories Qualified Code(s): E66.01 - Morbid (severe) obesity due to excess calories Is this a current diagnosis for this admission?: Yes - Time Time Spent with patient: 35 or more minutes Medications reviewed and adjusted accordingly: Yes
[2016-05-25] MEDS: LEVOTHYROXINE SODIUM 0.15 MG TABLET NG SCH (17:29)
--- NOTE | 2016-05-25 18:26 | PDOC PROGRESS REPORT ---
Subjective Progress Note for:: 05/25/16 Subjective:: Patient seen and evaluated this evening. No issues throughout the day aside from the new positive Hemoccult. According to the nurse she continues to remain confused with occasional limiting. Is unable to indicate the location of pain or if she is having pain. Physical Exam Vital Signs: Temp Pulse Resp BP Pulse Ox 98.0 F 82 21 H 160/86 H 100 05/25/16 17:45 05/25/16 10:00 05/25/16 17:30 05/25/16 15:47 05/25/16 17:30 Intake & Output 05/24/16 05/25/16 05/26/16 06:59 06:59 06:59 Intake Total 3222 3805 486 Output Total 560 9737 270 Balance 2558 -1280 1612 Weight 88.9 kg 91.8 kg Musculoskeletal exam: PRESENT: other - Right hip: Dressing change today. Mild serosanguineous drainage on the dressing. When dressing was changed no active drainage. No erythema minimal ecchymosis. Intact plantar flexion and dorsiflexion however limited secondary to patient's mental status. No significant thigh swelling compared to left nonoperative thigh Results Laboratory Results: 05/25/16 16:20 05/25/16 08:40 05/22/16 05/25/16 05/25/16 17:10 05:34 08:40 WBC 14.5 H RBC 2.58 L Hgb 7.7 L Hct 22.7 L MCV 88 MCH 29.9 MCHC 34.0 RDW 15.2 H Plt Count 92 L Seg Neutrophils % Lymphocytes % Monocytes % Eosinophils % Basophils % Absolute Neutrophils Absolute Lymphocytes Absolute Monocytes Absolute Eosinophils Absolute Basophils Sodium 139.3 Potassium 3.3 L Chloride 105 Carbon Dioxide 24 Anion Gap 10 BUN 55 H Creatinine 1.71 H Est GFR ( Amer) 35 L Est GFR (Non-Af Amer) 29 L Glucose 117 H Calcium 8.1 L Total Bilirubin 1.1 AST 47 H ALT 20 Alkaline Phosphatase 81 Total Protein 5.3 L Albumin 2.5 L Stool Occult Blood Blood Type B POSITIVE Antibody Screen NEGATIVE 05/25/16 05/25/16 09:15 16:20 WBC Cancelled RBC Cancelled Hgb Cancelled Hct Cancelled MCV Cancelled MCH Cancelled MCHC Cancelled RDW Cancelled Plt Count Cancelled Seg Neutrophils % Cancelled Lymphocytes % Cancelled Monocytes % Cancelled Eosinophils % Cancelled Basophils % Cancelled Absolute Neutrophils Cancelled Absolute Lymphocytes Cancelled Absolute Monocytes Cancelled Absolute Eosinophils Cancelled Absolute Basophils Cancelled Sodium Potassium Chloride Carbon Dioxide Anion Gap BUN Creatinine Est GFR ( Amer) Est GFR (Non-Af Amer) Glucose Calcium Total Bilirubin AST ALT Alkaline Phosphatase Total Protein Albumin Stool Occult Blood POSITIVE Blood Type Antibody Screen Impressions: Abdomen/Pelvis CT 05/21/16 12:05 IMPRESSION: 1. Right femoral neck fracture. 2. Nonobstructing renal calculi. Fluoroscopy 05/22/16 00:00 IMPRESSION: Please see combined report for performance of procedure and radiologic supervision and interpretation. Hip/Pelvis X-Ray 05/22/16 12:12 IMPRESSION: SATISFACTORY POSTOPERATIVE right HIP. Femur X-Ray 05/22/16 12:55 IMPRESSION: Status post right total hip replacement is noted above. An oblique lucency is identified within the cortex of the femur just proximal to the distal end of the femoral component of the hip prosthesis which has the appearance of a nondisplaced fracture line. Clinical correlation is recommended. Other findings as noted above. Chest X-Ray 05/25/16 00:00 IMPRESSION: 1. Support tubes and lines as above. 2. Mild cardiomegaly without congestion. No focal opacities. KUB X-Ray 05/25/16 00:00 IMPRESSION: No significant changes from prior study. Renal Ultrasound 05/25/16 00:00 IMPRESSION: Right nephrolithiasis. Bilateral renal atrophy. Assessment & Plan - Diagnosis (1) Displaced fracture of right femoral neck Is this a current diagnosis for this admission?: YesPlan: Status post right hip hemiarthroplasty with ORIF femur fracture #1 acute anemia possibly secondary to acute blood loss for the surgical procedure combined with now positive Hemoccult. Currently there is not significant swelling of the thigh to indicate active surgical bleeding. #2 anticoagulation held given current positive Hemoccult stool patient is at risk for PE but risk of bleeding higher than thromboembolic event #3 continue hip precautions #4 acute renal failure showing improvement appreciate nephrology management. #5 urosepsis currently being treated with ertapenem appreciate Dr. Anthony management and insight
[2016-05-25 20:43] LABS: ABSOLUTE LYMPHOCYTES (AUTO) 2.1 10^3/uL (0.5-4.7); ABSOLUTE MONOCYTES (AUTO) 0.8 10^3/uL (0.1-1.4); ABSOLUTE NEUT (AUTO) 13.1 10^3/uL (1.7-8.2); BASOPHILS % (AUTO) 0.1 % (0-2); EOSINOPHILS % (AUTO) 0.1 % (0-6); HEMATOCRIT 31.2 % (36.0-47.0); HGB HCT DIFFERENCE 0.9; LYMPHOCYTES % (AUTO) 13.2 % (13-45); MEAN CORPUSCULAR HEMOGLOBIN 29.8 pg (27.0-33.4); MEAN CORPUSCULAR HGB CONC 34.3 g/dL (32.0-36.0); MEAN CORPUSCULAR VOLUME 87 fl (80-97); MONOCYTES % (AUTO) 5.1 % (3-13); RED BLOOD COUNT 3.59 10^6/uL (3.72-5.28); RED CELL DISTRIBUTION WIDTH 14.9 % (11.5-14.0); SEGMENTED NEUTROPHILS % (AUTO) 81.5 % (42-78)
[2016-05-25 20:44] LABS: HEMOGLOBIN 10.7 g/dL (12.0-15.5)
[2016-05-25] MEDS: LORAZEPAM 1 MG TABLET NG SCH (21:54)
[2016-05-25] MEDS: SIMVASTATIN 40 MG TABLET NG SCH (21:54)
[2016-05-26 06:32] LABS: HEMATOCRIT 32.3 % (36.0-47.0); HGB HCT DIFFERENCE 0.7; MEAN CORPUSCULAR HEMOGLOBIN 29.7 pg (27.0-33.4); MEAN CORPUSCULAR HGB CONC 34.1 g/dL (32.0-36.0); MEAN CORPUSCULAR VOLUME 87 fl (80-97); RED BLOOD COUNT 3.71 10^6/uL (3.72-5.28); RED CELL DISTRIBUTION WIDTH 15.1 % (11.5-14.0); WHITE BLOOD COUNT 15.3 10^3/uL (4.0-10.5)
[2016-05-26 07:10] LABS: BASOPHILS % (MANUAL) 0 % (0-2); EOSINOPHILS % (MANUAL) 1 % (0-6); LYMPHOCYTES % (MANUAL) 14 % (13-45); TOTAL CELLS COUNTED 100
[2016-05-26 07:11] LABS: ANION GAP 10 (5-19); BLOOD UREA NITROGEN 50 mg/dL (7-20); CALCIUM 8.2 mg/dL (8.4-10.2); CARBON DIOXIDE 26 mmol/L (22-30); CHLORIDE 105 mmol/L (98-107); CREATININE RESULT 1.25 mg/dL (0.52-1.25); GLUCOSE 118 mg/dL (75-110); MAGNESIUM 1.6 mg/dL (1.6-2.3); PHOSPHORUS 3.3 mg/dL (2.5-4.5); POTASSIUM 3.4 mmol/L (3.6-5.0); SODIUM 141.2 mmol/L (137-145)
[2016-05-26 07:13] LABS: ANISOCYTOSIS SLIGHT; TOXIC GRANULATION 1+
[2016-05-26] MEDS ORDERED: NORMAL SALINE 1000 ML 1,000 ML IV PRN ×2 (07:39→09:47)
[2016-05-26] MEDS ORDERED: MAGNESIUM SULFATE/D5W 1 GM/100 ML RTUPB IV ONE ×2 (08:30→10:00)
[2016-05-26] MEDS ORDERED: POTASSIUM CHLORIDE 20 MEQ/15 ML UDCUP NG ONE (08:30)
[2016-05-26] MEDS ORDERED: MAGNESIUM SULFATE INJ 8 MEQ/2 ML IV ONE (09:03)
[2016-05-26] MEDS ORDERED: LACTULOSE SYRUP 20 GM/30 ML UDCUP PO ONE (10:00)
[2016-05-26] MEDS: NORMAL SALINE 1000 ML 1,000 ML IV PRN ×2 (10:08→20:31)
[2016-05-26] MEDS: ERTAPENEM SODIUM 0.5 GM in NORMAL SALINE 50 ML IV SCH (10:54)
[2016-05-26] MEDS: PANTOPRAZOLE SODIUM 40 MG VIAL IV SCH ×2 (10:54→21:35)
[2016-05-26] MEDS: OXYCODONE HCL IR 5 MG TABLET NG PRN ×2 (10:55→20:26)
[2016-05-26] MEDS: LIDOCAINE 5% (700 MG) TRANSDERMAL ADH..PATCH TOP SCH (10:55)
[2016-05-26] MEDS: LACTOBACILLUS ACIDOPHILUS 250 MG TAB NG SCH ×2 (10:55→18:13)
[2016-05-26] MEDS: AMLODIPINE BESYLATE 10 MG TABLET NG SCH (10:56)
[2016-05-26] MEDS: DOCUSATE SODIUM 100 MG CAPSULE PO SCH ×2 (10:57→18:15)
[2016-05-26] MEDS: SERTRALINE HCL 50 MG TABLET NG SCH ×2 (10:57→21:36)
--- NOTE | 2016-05-26 13:51 | PDOC PROGRESS REPORT ---
Subjective Progress Note for:: 05/26/16 Subjective:: Patient was seen in the ICU today. She was discussed with hospitalist Dr. Shaw. She remained stable. She is making good urine output. She has been begun on tube feeds which she seems to be tolerating at the moment.However she still seems to be out of it and has episodes of confusion even though there is some lucid intervals as per discussion is done with the daughter. Physical Exam Vital Signs: Temp Pulse Resp BP Pulse Ox 98.7 F 99 18 164/76 H 100 05/26/16 10:00 05/26/16 10:00 05/26/16 10:00 05/26/16 10:00 05/26/16 10:00 Intake & Output 05/25/16 05/26/16 05/27/16 06:59 06:59 06:59 Intake Total 1994 3329 Output Total 3275 2770 700 Balance -1280 560 -700 Weight 91.8 kg 87.8 kg General appearance: PRESENT: no acute distress Respiratory exam: PRESENT: clear to auscultation silvana. ABSENT: crackles, rhonchi Cardiovascular exam: PRESENT: +S1, +S2, systolic murmur GI/Abdominal exam: PRESENT: soft. ABSENT: distended, firm, tenderness Extremities exam: ABSENT: pedal edema Psychiatric exam: PRESENT: flat affect Skin exam: PRESENT: dry. ABSENT: mottled, rash Results Laboratory Results: 05/26/16 06:15 05/26/16 06:15 05/22/16 05/25/16 05/25/16 17:10 16:20 19:05 WBC Cancelled Cancelled RBC Cancelled Cancelled Hgb Cancelled Cancelled Hct Cancelled Cancelled MCV Cancelled Cancelled MCH Cancelled Cancelled MCHC Cancelled Cancelled RDW Cancelled Cancelled Plt Count Cancelled Cancelled Seg Neutrophils % Cancelled Cancelled Lymphocytes % Cancelled Cancelled Monocytes % Cancelled Cancelled Eosinophils % Cancelled Cancelled Basophils % Cancelled Cancelled Absolute Neutrophils Cancelled Cancelled Absolute Lymphocytes Cancelled Cancelled Absolute Monocytes Cancelled Cancelled Absolute Eosinophils Cancelled Cancelled Absolute Basophils Cancelled Cancelled Sodium Potassium Chloride Carbon Dioxide Anion Gap BUN Creatinine Est GFR ( Amer) Est GFR (Non-Af Amer) Glucose Calcium Phosphorus Magnesium Blood Type B POSITIVE Antibody Screen NEGATIVE 05/25/16 05/26/16 05/26/16 19:52 06:15 06:15 WBC 16.0 H 15.3 H RBC 3.59 L 3.71 L Hgb 10.7 L D 11.0 L Hct 31.2 L 32.3 L MCV 87 87 MCH 29.8 29.7 MCHC 34.3 34.1 RDW 14.9 H 15.1 H Plt Count 84 L Seg Neutrophils % 81.5 H Not Reportable Lymphocytes % 13.2 Not Reportable Monocytes % 5.1 Not Reportable Eosinophils % 0.1 Not Reportable Basophils % 0.1 Not Reportable Absolute Neutrophils 13.1 H Not Reportable Absolute Lymphocytes 2.1 Not Reportable Absolute Monocytes 0.8 Not Reportable Absolute Eosinophils 0.0 Not Reportable Absolute Basophils 0.0 Not Reportable Sodium 141.2 Potassium 3.4 L Chloride 105 Carbon Dioxide 26 Anion Gap 10 BUN 50 H Creatinine 1.25 Est GFR ( Amer) 50 L Est GFR (Non-Af Amer) 41 L Glucose 118 H Calcium 8.2 L Phosphorus 3.3 Magnesium 1.6 Blood Type Antibody Screen Impressions: Abdomen/Pelvis CT 05/21/16 12:05 IMPRESSION: 1. Right femoral neck fracture. 2. Nonobstructing renal calculi. Fluoroscopy 05/22/16 00:00 IMPRESSION: Please see combined report for performance of procedure and radiologic supervision and interpretation. Hip/Pelvis X-Ray 05/22/16 12:12 IMPRESSION: SATISFACTORY POSTOPERATIVE right HIP. Femur X-Ray 05/22/16 12:55 IMPRESSION: Status post right total hip replacement is noted above. An oblique lucency is identified within the cortex of the femur just proximal to the distal end of the femoral component of the hip prosthesis which has the appearance of a nondisplaced fracture line. Clinical correlation is recommended. Other findings as noted above. Chest X-Ray 05/25/16 00:00 IMPRESSION: 1. Support tubes and lines as above. 2. Mild cardiomegaly without congestion. No focal opacities. KUB X-Ray 05/25/16 00:00 IMPRESSION: No significant changes from prior study. Renal Ultrasound 05/25/16 00:00 IMPRESSION: Right nephrolithiasis. Bilateral renal atrophy. Assessment & Plan - Diagnosis (1) Acute kidney injury superimposed on chronic kidney disease Is this a current diagnosis for this admission?: YesPlan: Renal numbers are improving nicely. She is continuing to be nonoliguric. Continue on present lines of management. (2) Fracture of femoral neck, right, closed Qualifiers: Encounter type: initial encounter Qualified Code(s): S72.001A - Fracture of unspecified part of neck of right femur, initial encounter for closed fracture Is this a current diagnosis for this admission?: Yes (3) Hypotension Qualifiers: Hypotension type: postprocedural hypotension Qualified Code(s): I95.81 - Postprocedural hypotension Is this a current diagnosis for this admission?: YesPlan: Resolved. (4) Encephalopathy acute Plan: Status quo. Hopefully she should improve once as she gets better. Multifactorial. (5) Essential hypertension Is this a current diagnosis for this admission?: Yes (6) UTI (urinary tract infection) Qualifiers: Urinary tract infection type: site unspecified Hematuria presence: with hematuria Qualified Code(s): N39.0 - Urinary tract infection, site not specified Is this a current diagnosis for this admission?: Yes
[2016-05-26] MEDS ORDERED: OXYCODONE HCL IR 5 MG TABLET PO ONE (14:26)
[2016-05-26] MEDS ORDERED: METOPROLOL TARTRATE PF/INJ 5 MG/5 ML SDV IV ONE ×2 (14:26→16:58)
[2016-05-26] MEDS ORDERED: METOPROLOL TARTRATE PF/INJ 5 MG/5 ML SDV IV PRN (16:58)
[2016-05-26] MEDS ORDERED: LACTULOSE SYRUP 20 GM/30 ML UDCUP PO SCH (18:00)
[2016-05-26] MEDS: LEVOTHYROXINE SODIUM 0.15 MG TABLET NG SCH (18:13)
--- NOTE | 2016-05-26 19:58 | PDOC PROGRESS REPORT ---
Subjective Progress Note for:: 05/26/16 Subjective:: Patient seen on morning rounds. No acute events overnight. Unable to obtain review of systems secondary to encephalopathy and baseline dementia. Case discussed with Dr. Gaviria at bedside. Physical Exam Vital Signs: Temp Pulse Resp BP Pulse Ox 98.4 F 73 20 158/76 H 99 05/26/16 04:00 05/25/16 20:00 05/26/16 06:30 05/26/16 06:03 05/26/16 06:30 Intake & Output 05/25/16 05/26/16 05/27/16 06:59 06:59 06:59 Intake Total 1994 3329 Output Total 5 2770 Balance -1280 560 Weight 91.8 kg 87.8 kg Exam: General: Resting comfortably, no acute respiratory distress HEENT: AT/NC, PERRL, oropharynx is moist, pink, no scleral icterus, no conjunctival injection Neck: No JVD, trachea midline Chest: Clear to auscultation bilaterally, no wheezes rhonchi or rales CV: Regular rate and rhythm, normal S1 and S2, no rub, or gallop; 3/6 sm lusb Abdomen: Soft, mildly tender to palpation, mildly distended, hypoactive bowel sounds; no rebound, rigidity, or guarding Extremities: No cyanosis, clubbing; generalized edema; right leg edematous, dressing in place serous sanguinous Results Laboratory Results: 05/26/16 06:15 05/26/16 06:15 05/22/16 05/25/16 05/25/16 17:10 08:40 09:15 WBC RBC Hgb Hct MCV MCH MCHC RDW Plt Count Seg Neutrophils % Lymphocytes % Monocytes % Eosinophils % Basophils % Absolute Neutrophils Absolute Lymphocytes Absolute Monocytes Absolute Eosinophils Absolute Basophils Sodium 139.3 Potassium 3.3 L Chloride 105 Carbon Dioxide 24 Anion Gap 10 BUN 55 H Creatinine 1.71 H Est GFR ( Amer) 35 L Est GFR (Non-Af Amer) 29 L Glucose 117 H Calcium 8.1 L Phosphorus Magnesium Total Bilirubin 1.1 AST 47 H ALT 20 Alkaline Phosphatase 81 Total Protein 5.3 L Albumin 2.5 L Stool Occult Blood POSITIVE Blood Type B POSITIVE Antibody Screen NEGATIVE 05/25/16 05/25/16 05/25/16 16:20 19:05 19:52 WBC Cancelled Cancelled 16.0 H RBC Cancelled Cancelled 3.59 L Hgb Cancelled Cancelled 10.7 L D Hct Cancelled Cancelled 31.2 L MCV Cancelled Cancelled 87 MCH Cancelled Cancelled 29.8 MCHC Cancelled Cancelled 34.3 RDW Cancelled Cancelled 14.9 H Plt Count Cancelled Cancelled Seg Neutrophils % Cancelled Cancelled 81.5 H Lymphocytes % Cancelled Cancelled 13.2 Monocytes % Cancelled Cancelled 5.1 Eosinophils % Cancelled Cancelled 0.1 Basophils % Cancelled Cancelled 0.1 Absolute Neutrophils Cancelled Cancelled 13.1 H Absolute Lymphocytes Cancelled Cancelled 2.1 Absolute Monocytes Cancelled Cancelled 0.8 Absolute Eosinophils Cancelled Cancelled 0.0 Absolute Basophils Cancelled Cancelled 0.0 Sodium Potassium Chloride Carbon Dioxide Anion Gap BUN Creatinine Est GFR ( Amer) Est GFR (Non-Af Amer) Glucose Calcium Phosphorus Magnesium Total Bilirubin AST ALT Alkaline Phosphatase Total Protein Albumin Stool Occult Blood Blood Type Antibody Screen 05/26/16 05/26/16 06:15 06:15 WBC 15.3 H RBC 3.71 L Hgb 11.0 L Hct 32.3 L MCV 87 MCH 29.7 MCHC 34.1 RDW 15.1 H Plt Count 84 L Seg Neutrophils % Not Reportable Lymphocytes % Not Reportable Monocytes % Not Reportable Eosinophils % Not Reportable Basophils % Not Reportable Absolute Neutrophils Not Reportable Absolute Lymphocytes Not Reportable Absolute Monocytes Not Reportable Absolute Eosinophils Not Reportable Absolute Basophils Not Reportable Sodium 141.2 Potassium 3.4 L Chloride 105 Carbon Dioxide 26 Anion Gap 10 BUN 50 H Creatinine 1.25 Est GFR ( Amer) 50 L Est GFR (Non-Af Amer) 41 L Glucose 118 H Calcium 8.2 L Phosphorus 3.3 Magnesium 1.6 Total Bilirubin AST ALT Alkaline Phosphatase Total Protein Albumin Stool Occult Blood Blood Type Antibody Screen Impressions: Abdomen/Pelvis CT 05/21/16 12:05 IMPRESSION: 1. Right femoral neck fracture. 2. Nonobstructing renal calculi. Fluoroscopy 05/22/16 00:00 IMPRESSION: Please see combined report for performance of procedure and radiologic supervision and interpretation. Hip/Pelvis X-Ray 05/22/16 12:12 IMPRESSION: SATISFACTORY POSTOPERATIVE right HIP. Femur X-Ray 05/22/16 12:55 IMPRESSION: Status post right total hip replacement is noted above. An oblique lucency is identified within the cortex of the femur just proximal to the distal end of the femoral component of the hip prosthesis which has the appearance of a nondisplaced fracture line. Clinical correlation is recommended. Other findings as noted above. Chest X-Ray 05/25/16 00:00 IMPRESSION: 1. Support tubes and lines as above. 2. Mild cardiomegaly without congestion. No focal opacities. KUB X-Ray 05/25/16 00:00 IMPRESSION: No significant changes from prior study. Renal Ultrasound 05/25/16 00:00 IMPRESSION: Right nephrolithiasis. Bilateral renal atrophy. Assessment & Plan - Diagnosis (1) Acute blood loss as cause of postoperative anemia Is this a current diagnosis for this admission?: YesPlan: Positive occult blood. Patient currently holding hemoglobin. Have obtained fibrinogen and fibrinogen degradation products which are normal in point away from DIC. (2) Sepsis Qualifiers: Sepsis type: Escherichia coli Qualified Code(s): A41.51 - Sepsis due to Escherichia coli [E. coli] Is this a current diagnosis for this admission?: YesPlan: Patient with Escherichia coli urinary tract infection and subsequent combined septic shock and hypovolemic shock. Currently on ertapenem day #5 doing well. Transition to Rocephin beginning tomorrow. (3) Acute kidney injury superimposed on chronic kidney disease Is this a current diagnosis for this admission?: YesPlan: Improving. Appreciate Dr. Alex Gaviria, nephrology, for guidance on patient's acute kidney injury. Ultrasound reveals mildly atrophic kidneys without obstructing stone. (4) Displaced fracture of right femoral neck Is this a current diagnosis for this admission?: YesPlan: Will defer this and all issues arising from her fracture to the surgical team. (5) Hypotension Qualifiers: Hypotension type: postprocedural hypotension Qualified Code(s): I95.81 - Postprocedural hypotension Is this a current diagnosis for this admission?: Yes (6) Hypothyroid Qualifiers: Hypothyroidism type: acquired Qualified Code(s): E03.9 - Hypothyroidism, unspecified Is this a current diagnosis for this admission?: Yes (7) Anemia of chronic disease Is this a current diagnosis for this admission?: Yes (8) Chronic kidney disease, stage III (moderate) Is this a current diagnosis for this admission?: Yes (9) Dementia Qualifiers: Dementia type: unspecified type Dementia behavioral disturbance: without behavioral disturbance Qualified Code(s): F03.90 - Unspecified dementia without behavioral disturbance Is this a current diagnosis for this admission?: Yes (10) Gastroesophageal reflux disease Qualifiers: Esophagitis presence: without esophagitis Qualified Code(s): K21.9 - Gastro-esophageal reflux disease without esophagitis Is this a current diagnosis for this admission?: Yes (11) Hyperlipidemia Qualifiers: Hyperlipidemia type: unspecified Qualified Code(s): E78.5 - Hyperlipidemia, unspecified Is this a current diagnosis for this admission?: Yes (12) UTI (urinary tract infection) Qualifiers: Urinary tract infection type: site unspecified Hematuria presence: with hematuria Qualified Code(s): N39.0 - Urinary tract infection, site not specified Is this a current diagnosis for this admission?: YesPlan: Patient currently with Escherichia coli UTI receiving Invanz day #5. Transition to Rocephin beginning tomorrow. (13) Acute metabolic encephalopathy Is this a current diagnosis for this admission?: Yes (14) Thrombocytopenia Is this a current diagnosis for this admission?: YesPlan: Likely secondary to underlying sepsis. Have held heparin and sent antiplatelet and hit antibodies. Have also sent hepatitis panel. Hold anticoagulation at this time due to this. (15) Coagulopathy Is this a current diagnosis for this admission?: Yes (16) protein calorie malnourishment Is this a current diagnosis for this admission?: Yes (17) Morbid obesity Qualifiers: Obesity type: due to excess calories Qualified Code(s): E66.01 - Morbid (severe) obesity due to excess calories Is this a current diagnosis for this admission?: Yes - Time Time Spent with patient: 35 or more minutes Medications reviewed and adjusted accordingly: Yes Anticipated discharge: Acute Rehab
[2016-05-26] MEDS: LORAZEPAM 1 MG TABLET NG SCH (21:35)
[2016-05-26] MEDS: METOPROLOL TARTRATE 25 MG TABLET NG SCH (21:36)
[2016-05-26] MEDS: SIMVASTATIN 40 MG TABLET NG SCH (21:36)
[2016-05-26] MEDS: PHARMACY COMMUNICATION ORDER MC SCH (23:11)
[2016-05-27] MEDS: OXYCODONE HCL IR 5 MG TABLET NG PRN ×6 (00:12→22:19)
[2016-05-27 06:45] LABS: HEMATOCRIT 33.8 % (36.0-47.0); HEMOGLOBIN 11.4 g/dL (12.0-15.5); HGB HCT DIFFERENCE 0.4; MEAN CORPUSCULAR HEMOGLOBIN 29.7 pg (27.0-33.4); MEAN CORPUSCULAR HGB CONC 33.6 g/dL (32.0-36.0); MEAN CORPUSCULAR VOLUME 88 fl (80-97); RED BLOOD COUNT 3.82 10^6/uL (3.72-5.28); RED CELL DISTRIBUTION WIDTH 14.9 % (11.5-14.0); WHITE BLOOD COUNT 13.6 10^3/uL (4.0-10.5)
[2016-05-27 06:58] LABS: ANION GAP 9 (5-19); BLOOD UREA NITROGEN 45 mg/dL (7-20); CALCIUM 8.4 mg/dL (8.4-10.2); CARBON DIOXIDE 29 mmol/L (22-30); CHLORIDE 104 mmol/L (98-107); CREATININE RESULT 1.08 mg/dL (0.52-1.25); GLUCOSE 133 mg/dL (75-110); POTASSIUM 3.6 mmol/L (3.6-5.0); SODIUM 142.1 mmol/L (137-145)
--- NOTE | 2016-05-27 07:44 | PDOC PROGRESS REPORT ---
Subjective Progress Note for:: 05/27/16 Subjective:: Patient seen and evaluated this morning. Daughter at bedside. She states no issues overnight. Does complain of pain with motion but otherwise comfortable. Unable to obtain full review of systems secondary to patient's mental status. Physical Exam Vital Signs: Temp Pulse Resp BP Pulse Ox 98.8 F 110 H 20 121/68 100 05/27/16 04:00 05/27/16 04:00 05/27/16 04:00 05/27/16 04:00 05/27/16 04:00 Intake & Output 05/26/16 05/27/16 05/28/16 06:59 06:59 06:59 Intake Total 3330 1198 Output Total 2770 3395 Balance 560 -2197 Weight 87.8 kg 87 kg Musculoskeletal exam: PRESENT: other - Patient lying in bed comfortably. Right lower extremity: No evidence of limb length inequality. Minimal thigh swelling equivalent to nonoperative left side. Serosanguineous drainage on the dressing. No evidence of erythema. Results Laboratory Results: 05/27/16 06:05 05/27/16 05/27/16 06:05 06:05 Seg Neutrophils % Not Reportable Lymphocytes % Not Reportable Monocytes % Not Reportable Eosinophils % Not Reportable Basophils % Not Reportable Absolute Neutrophils Not Reportable Absolute Lymphocytes Not Reportable Absolute Monocytes Not Reportable Absolute Eosinophils Not Reportable Absolute Basophils Not Reportable Sodium 142.1 Potassium 3.6 Chloride 104 Carbon Dioxide 29 Anion Gap 9 BUN 45 H Creatinine 1.08 Est GFR ( Amer) 59 L Est GFR (Non-Af Amer) 49 L Glucose 133 H Calcium 8.4 05/24/16 11:10 Catheterized Urine Urine Culture - Final C.albicans/C.dubliniensis Impressions: Abdomen/Pelvis CT 05/21/16 12:05 IMPRESSION: 1. Right femoral neck fracture. 2. Nonobstructing renal calculi. Fluoroscopy 05/22/16 00:00 IMPRESSION: Please see combined report for performance of procedure and radiologic supervision and interpretation. Hip/Pelvis X-Ray 05/22/16 12:12 IMPRESSION: SATISFACTORY POSTOPERATIVE right HIP. Femur X-Ray 05/22/16 12:55 IMPRESSION: Status post right total hip replacement is noted above. An oblique lucency is identified within the cortex of the femur just proximal to the distal end of the femoral component of the hip prosthesis which has the appearance of a nondisplaced fracture line. Clinical correlation is recommended. Other findings as noted above. Chest X-Ray 05/25/16 00:00 IMPRESSION: 1. Support tubes and lines as above. 2. Mild cardiomegaly without congestion. No focal opacities. KUB X-Ray 05/25/16 00:00 IMPRESSION: No significant changes from prior study. Renal Ultrasound 05/25/16 00:00 IMPRESSION: Right nephrolithiasis. Bilateral renal atrophy. Assessment & Plan - Diagnosis (1) Displaced fracture of right femoral neck Is this a current diagnosis for this admission?: YesPlan: status post right hip hemiarthroplasty with ORIF femoral shaft #1 physical therapy obtaining hip precautions #2 acute renal failure resolving appreciate Dr. Gaviria's expertise #3 acute on chronic blood loss anemia patient's recent hemoglobin stable. #4 DVT prophylaxis currently held given blood loss anemia and thrombocytopenia. #5 discharge planning patient's daughter desires home health with home physical therapy. We discussed this possibility. I explained to the daughter this does place somewhat of a burden her she is willing to accept this burden. Given patient's mental status and natural history of hip fractures in patients with underlying dementia I do anticipate functional limitation with ambulation and thus expectation should be garnered. Thus it is reasonable for patient to be discharged home with home physical therapy.
[2016-05-27 07:59] LABS: BASOPHILS % (MANUAL) 0 % (0-2); EOSINOPHILS % (MANUAL) 1 % (0-6); LYMPHOCYTES % (MANUAL) 18 % (13-45); NUCLEATED RED BLOOD CELLS 2 /100 WBC (0); TOTAL CELLS COUNTED 100
[2016-05-27 08:01] LABS: ANISOCYTOSIS SLIGHT; OVALOCYTES 1+; POIKILOCYTOSIS 1+; POLYCHROMASIA 1+
--- NOTE | 2016-05-27 09:27 | EKG REPORT ---
SEVERITY:- ABNORMAL ECG - ATRIAL FIBRILLATION RIGHT BUNDLE BRANCH BLOCK AND LAFB : Confirmed by: Jonah Robles MD 27-May-2016 09:26:33
[2016-05-27] MEDS: SERTRALINE HCL 50 MG TABLET NG SCH ×2 (10:00→21:18)
[2016-05-27] MEDS: LACTOBACILLUS ACIDOPHILUS 250 MG TAB NG SCH ×2 (10:01→17:54)
[2016-05-27] MEDS: DOCUSATE SODIUM 100 MG CAPSULE PO SCH ×2 (10:01→17:56)
[2016-05-27] MEDS: PANTOPRAZOLE SODIUM 40 MG VIAL IV SCH (10:02)
[2016-05-27] MEDS: AMLODIPINE BESYLATE 10 MG TABLET NG SCH (10:02)
[2016-05-27] MEDS: METOPROLOL TARTRATE 25 MG TABLET NG SCH ×2 (10:02→21:18)
[2016-05-27] MEDS: ERTAPENEM SODIUM 0.5 GM in NORMAL SALINE 50 ML IV SCH (10:08)
[2016-05-27] MEDS: LIDOCAINE 5% (700 MG) TRANSDERMAL ADH..PATCH TOP SCH (10:08)
[2016-05-27] MEDS ORDERED: MORPHINE SULFATE 10 MG/ML INJ ONE (15:03)
[2016-05-27] MEDS ORDERED: OXYCODONE HCL IR 5 MG TABLET PO ONE (16:30)
[2016-05-27 17:37] LABS: HLA CLASS 1 ANTIBODY Negative (Negative); IIB/IIIA ANTIBODY Negative (Negative)
[2016-05-27] MEDS: LEVOTHYROXINE SODIUM 0.15 MG TABLET NG SCH (17:55)
--- NOTE | 2016-05-27 21:06 | PDOC PROGRESS REPORT ---
Subjective Progress Note for:: 05/27/16 Subjective:: Patient seen on morning rounds. No acute events overnight. Unable to obtain review of systems secondary to encephalopathy and baseline dementia. Physical Exam Vital Signs: Temp Pulse Resp BP Pulse Ox 98.8 F 110 H 20 121/68 100 05/27/16 04:00 05/27/16 04:00 05/27/16 04:00 05/27/16 04:00 05/27/16 04:00 Intake & Output 05/26/16 05/27/16 05/28/16 06:59 06:59 06:59 Intake Total 3330 1198 Output Total 2770 3395 Balance 560 -2197 Weight 87.8 kg 87 kg Exam: General: Resting comfortably, no acute respiratory distress HEENT: AT/NC, PERRL, oropharynx is moist, pink, no scleral icterus, no conjunctival injection, NG in place Neck: No JVD, trachea midline Chest: Coarse bilaterally CV: Regular rate and rhythm, normal S1 and S2, no rub, or gallop; 3/6 sm lusb Abdomen: Soft, mildly tender to palpation, mildly distended, hypoactive bowel sounds; no rebound, rigidity, or guarding Extremities: No cyanosis, clubbing; generalized edema; right leg edematous, dressing in place serous sanguinous Neuro: nod head to question Results Laboratory Results: 05/27/16 06:05 05/27/16 05/27/16 06:05 06:05 Seg Neutrophils % Not Reportable Lymphocytes % Not Reportable Monocytes % Not Reportable Eosinophils % Not Reportable Basophils % Not Reportable Absolute Neutrophils Not Reportable Absolute Lymphocytes Not Reportable Absolute Monocytes Not Reportable Absolute Eosinophils Not Reportable Absolute Basophils Not Reportable Sodium 142.1 Potassium 3.6 Chloride 104 Carbon Dioxide 29 Anion Gap 9 BUN 45 H Creatinine 1.08 Est GFR ( Amer) 59 L Est GFR (Non-Af Amer) 49 L Glucose 133 H Calcium 8.4 05/24/16 11:10 Catheterized Urine Urine Culture - Final C.albicans/C.dubliniensis Impressions: Abdomen/Pelvis CT 05/21/16 12:05 IMPRESSION: 1. Right femoral neck fracture. 2. Nonobstructing renal calculi. Fluoroscopy 05/22/16 00:00 IMPRESSION: Please see combined report for performance of procedure and radiologic supervision and interpretation. Hip/Pelvis X-Ray 05/22/16 12:12 IMPRESSION: SATISFACTORY POSTOPERATIVE right HIP. Femur X-Ray 05/22/16 12:55 IMPRESSION: Status post right total hip replacement is noted above. An oblique lucency is identified within the cortex of the femur just proximal to the distal end of the femoral component of the hip prosthesis which has the appearance of a nondisplaced fracture line. Clinical correlation is recommended. Other findings as noted above. Chest X-Ray 05/25/16 00:00 IMPRESSION: 1. Support tubes and lines as above. 2. Mild cardiomegaly without congestion. No focal opacities. KUB X-Ray 05/25/16 00:00 IMPRESSION: No significant changes from prior study. Renal Ultrasound 05/25/16 00:00 IMPRESSION: Right nephrolithiasis. Bilateral renal atrophy. Assessment & Plan - Diagnosis (1) Acute blood loss as cause of postoperative anemia Is this a current diagnosis for this admission?: YesPlan: Positive occult blood. Patient currently holding hemoglobin. Occult blood. Patient has had multiple bowel movements overnight and did not lose any hemoglobin. (2) Sepsis Qualifiers: Sepsis type: Escherichia coli Qualified Code(s): A41.51 - Sepsis due to Escherichia coli [E. coli] Is this a current diagnosis for this admission?: YesPlan: Patient with Escherichia coli urinary tract infection and subsequent combined septic shock and hypovolemic shock. Completed ertapenem day #5. Plan to use Rocephin 2 g IV every 24 with first dose today. Plan on this for 2 additional days. (3) Acute kidney injury superimposed on chronic kidney disease Is this a current diagnosis for this admission?: YesPlan: Improving. Appreciate Dr. Alex Gaviria, nephrology, for guidance on patient's acute kidney injury. Ultrasound reveals mildly atrophic kidneys without obstructing stone. (4) Displaced fracture of right femoral neck Is this a current diagnosis for this admission?: YesPlan: Will defer this and all issues arising from her fracture to the surgical team. (5) Hypotension Qualifiers: Hypotension type: postprocedural hypotension Qualified Code(s): I95.81 - Postprocedural hypotension Is this a current diagnosis for this admission?: Yes (6) Hypothyroid Qualifiers: Hypothyroidism type: acquired Qualified Code(s): E03.9 - Hypothyroidism, unspecified Is this a current diagnosis for this admission?: YesPlan: Continue Synthroid. TSH is normal (7) Anemia of chronic disease Is this a current diagnosis for this admission?: Yes (8) Chronic kidney disease, stage III (moderate) Is this a current diagnosis for this admission?: Yes (9) Dementia Qualifiers: Dementia type: unspecified type Dementia behavioral disturbance: without behavioral disturbance Qualified Code(s): F03.90 - Unspecified dementia without behavioral disturbance Is this a current diagnosis for this admission?: Yes (10) Gastroesophageal reflux disease Qualifiers: Esophagitis presence: without esophagitis Qualified Code(s): K21.9 - Gastro-esophageal reflux disease without esophagitis Is this a current diagnosis for this admission?: Yes (11) Hyperlipidemia Qualifiers: Hyperlipidemia type: unspecified Qualified Code(s): E78.5 - Hyperlipidemia, unspecified Is this a current diagnosis for this admission?: Yes (12) UTI (urinary tract infection) Qualifiers: Urinary tract infection type: site unspecified Hematuria presence: with hematuria Qualified Code(s): N39.0 - Urinary tract infection, site not specified Is this a current diagnosis for this admission?: YesPlan: Patient currently with Escherichia coli UTI (13) Acute metabolic encephalopathy Is this a current diagnosis for this admission?: YesPlan: Slightly likely multifactorial secondary to sepsis, dementia, acute renal failure, benzodiazepine withdrawal, and ICU psychosis. Continue supportive care. Plan to begin working more aggressively with patient beginning tomorrow to remove NG and begin oral feeding. (14) Thrombocytopenia Is this a current diagnosis for this admission?: YesPlan: Likely secondary to underlying sepsis. Heparin antibodies are negative. Plan antiplatelet antibodies are pending. Hepatitis panel is negative. (15) Coagulopathy Is this a current diagnosis for this admission?: Yes (16) protein calorie malnourishment Is this a current diagnosis for this admission?: YesPlan: Patient has an albumin of 2.2. Are giving patient tube feeds at this time via NG. Patient appears to be quite profoundly weak. Appreciate dietary input. (17) Morbid obesity Qualifiers: Obesity type: due to excess calories Qualified Code(s): E66.01 - Morbid (severe) obesity due to excess calories Is this a current diagnosis for this admission?: Yes - Time Time Spent with patient: 35 or more minutes Medications reviewed and adjusted accordingly: Yes Anticipated discharge: Acute Rehab
[2016-05-27] MEDS: SIMVASTATIN 40 MG TABLET NG SCH (21:18)
[2016-05-27] MEDS: LORAZEPAM 1 MG TABLET NG SCH (21:21)
[2016-05-27] MEDS: PHARMACY COMMUNICATION ORDER MC SCH (21:23)
[2016-05-28] MEDS: OXYCODONE HCL IR 5 MG TABLET NG PRN ×5 (02:31→21:46)
[2016-05-28 06:58] LABS: ABSOLUTE EOSINOPHILS # (AUTO) 0.6 10^3/uL (0.0-0.6); ABSOLUTE LYMPHOCYTES (AUTO) 3.1 10^3/uL (0.5-4.7); ABSOLUTE MONOCYTES (AUTO) 1.2 10^3/uL (0.1-1.4); ABSOLUTE NEUT (AUTO) 10.7 10^3/uL (1.7-8.2); BASOPHILS % (AUTO) 0.2 % (0-2); HEMATOCRIT 35.2 % (36.0-47.0); HEMOGLOBIN 11.7 g/dL (12.0-15.5); HGB HCT DIFFERENCE -0.1; MEAN CORPUSCULAR HEMOGLOBIN 29.7 pg (27.0-33.4); MEAN CORPUSCULAR HGB CONC 33.3 g/dL (32.0-36.0); MEAN CORPUSCULAR VOLUME 89 fl (80-97); MONOCYTES % (AUTO) 7.6 % (3-13); RED BLOOD COUNT 3.94 10^6/uL (3.72-5.28); SEGMENTED NEUTROPHILS % (AUTO) 68.2 % (42-78); WHITE BLOOD COUNT 15.6 10^3/uL (4.0-10.5)
[2016-05-28 07:17] LABS: ANION GAP 8 (5-19); BLOOD UREA NITROGEN 45 mg/dL (7-20); CALCIUM 8.2 mg/dL (8.4-10.2); CARBON DIOXIDE 27 mmol/L (22-30); CHLORIDE 103 mmol/L (98-107); CREATININE RESULT 0.97 mg/dL (0.52-1.25); GLUCOSE 123 mg/dL (75-110); POTASSIUM 3.7 mmol/L (3.6-5.0); SODIUM 138.1 mmol/L (137-145)
[2016-05-28 07:20] LABS: IA/IIA ANTIBODY Negative (Negative)
[2016-05-28] MEDS ORDERED: FUROSEMIDE INJ/PF 20 MG/2 ML SDV IV ONE (10:30)
[2016-05-28] MEDS: METOPROLOL TARTRATE 25 MG TABLET NG SCH ×2 (11:19→21:49)
[2016-05-28] MEDS: LACTOBACILLUS ACIDOPHILUS 250 MG TAB NG SCH ×2 (11:19→16:44)
[2016-05-28] MEDS: SERTRALINE HCL 50 MG TABLET NG SCH ×2 (11:20→21:51)
[2016-05-28] MEDS: AMLODIPINE BESYLATE 10 MG TABLET NG SCH (11:20)
[2016-05-28] MEDS: DOCUSATE SODIUM 100 MG CAPSULE PO SCH ×2 (11:21→16:46)
--- NOTE | 2016-05-28 15:02 | PDOC PROGRESS REPORT ---
Subjective Progress Note for:: 05/28/16 Subjective:: Patient seen and evaluated this afternoon. Family at bedside. Pain has been controlled. Denies any issues. Physical Exam Vital Signs: Temp Pulse Resp BP Pulse Ox 98.3 F 106 H 19 130/73 H 97 05/28/16 11:48 05/28/16 14:00 05/28/16 11:48 05/28/16 11:48 05/28/16 11:48 Intake & Output 05/27/16 05/28/16 05/29/16 06:59 06:59 06:59 Intake Total 2542 1059 300 Output Total 3395 900 0 Balance -853 159 300 Weight 87 kg 87.5 kg Musculoskeletal exam: PRESENT: other - Right lower extremity: Clear serosanguineous drainage proximally. Ecchymosis along the incision site. No erythema. No evidence of the ring inequality. Cap refill less than 2 seconds. No calf tenderness. Results Laboratory Results: 05/28/16 06:10 05/28/16 06:10 05/28/16 05/28/16 06:10 06:10 WBC 15.6 H RBC 3.94 Hgb 11.7 L Hct 35.2 L MCV 89 MCH 29.7 MCHC 33.3 RDW 15.0 H Plt Count 124 L Seg Neutrophils % 68.2 Lymphocytes % 20.0 Monocytes % 7.6 Eosinophils % 4.0 Basophils % 0.2 Absolute Neutrophils 10.7 H Absolute Lymphocytes 3.1 Absolute Monocytes 1.2 Absolute Eosinophils 0.6 Absolute Basophils 0.0 Sodium 138.1 Potassium 3.7 Chloride 103 Carbon Dioxide 27 Anion Gap 8 BUN 45 H Creatinine 0.97 Est GFR ( Amer) > 60 Est GFR (Non-Af Amer) 55 L Glucose 123 H Calcium 8.2 L Impressions: Abdomen/Pelvis CT 05/21/16 12:05 IMPRESSION: 1. Right femoral neck fracture. 2. Nonobstructing renal calculi. Fluoroscopy 05/22/16 00:00 IMPRESSION: Please see combined report for performance of procedure and radiologic supervision and interpretation. Hip/Pelvis X-Ray 05/22/16 12:12 IMPRESSION: SATISFACTORY POSTOPERATIVE right HIP. Femur X-Ray 05/22/16 12:55 IMPRESSION: Status post right total hip replacement is noted above. An oblique lucency is identified within the cortex of the femur just proximal to the distal end of the femoral component of the hip prosthesis which has the appearance of a nondisplaced fracture line. Clinical correlation is recommended. Other findings as noted above. Chest X-Ray 05/25/16 00:00 IMPRESSION: 1. Support tubes and lines as above. 2. Mild cardiomegaly without congestion. No focal opacities. KUB X-Ray 05/25/16 00:00 IMPRESSION: No significant changes from prior study. Renal Ultrasound 05/25/16 00:00 IMPRESSION: Right nephrolithiasis. Bilateral renal atrophy. Assessment & Plan - Diagnosis (1) Displaced fracture of right femoral neck Is this a current diagnosis for this admission?: YesPlan: Status post right hip hemiarthroplasty with ORIF femoral shaft #1 pain control patient will transition to nonnarcotic pain medication which may help her mental status #2 physical therapy once patient's mental status improves maintaining hip precautions #3 DVT prophylaxis currently being held given anemia and thrombocytopenia. #4 discharge planning once again discussed possibility versus rehabilitation given the extreme tension patient will require I feel we have made the decision as opposed to home patient will be discharged to long term facility.
--- NOTE | 2016-05-28 15:20 | PDOC PROGRESS REPORT ---
Subjective Progress Note for:: 05/28/16 Subjective:: Family reports the patient was talking to them last night and today. Patient resting comfortably when I visited her. No acute events overnight. Unable to obtain review of systems secondary to dementia and encephalopathy. Physical Exam Vital Signs: Temp Pulse Resp BP Pulse Ox 97.6 F 112 H 18 148/85 H 100 05/27/16 19:57 05/28/16 06:56 05/27/16 23:35 05/27/16 23:35 05/27/16 23:35 Intake & Output 05/27/16 05/28/16 05/29/16 06:59 06:59 06:59 Intake Total 2542 150 Output Total 3395 900 Balance -853 -750 Weight 87 kg 87.5 kg Exam: General: Resting comfortably, no acute respiratory distress HEENT: AT/NC, PERRL, oropharynx is moist, pink, no scleral icterus, no conjunctival injection, NG in place Neck: No JVD, trachea midline Chest: Rhonchi bilaterally CV: Regular rate and rhythm, normal S1 and S2, no rub, or gallop; 3/6 sm lusb Abdomen: Soft, NTTP, mildly distended, active bowel sounds; no rebound, rigidity , or guarding Extremities: No cyanosis, clubbing; generalized edema; right leg edematous, dressing in place serous sanguinous Neuro: nod head to question Results Laboratory Results: 05/28/16 06:10 05/28/16 06:10 05/27/16 05/28/16 05/28/16 06:05 06:10 06:10 WBC 13.6 H 15.6 H RBC 3.82 3.94 Hgb 11.4 L 11.7 L Hct 33.8 L 35.2 L MCV 88 89 MCH 29.7 29.7 MCHC 33.6 33.3 RDW 14.9 H 15.0 H Plt Count 111 L 124 L Seg Neutrophils % 68.2 Lymphocytes % 20.0 Monocytes % 7.6 Eosinophils % 4.0 Basophils % 0.2 Absolute Neutrophils 10.7 H Absolute Lymphocytes 3.1 Absolute Monocytes 1.2 Absolute Eosinophils 0.6 Absolute Basophils 0.0 Sodium 138.1 Potassium 3.7 Chloride 103 Carbon Dioxide 27 Anion Gap 8 BUN 45 H Creatinine 0.97 Est GFR ( Amer) > 60 Est GFR (Non-Af Amer) 55 L Glucose 123 H Calcium 8.2 L Impressions: Abdomen/Pelvis CT 05/21/16 12:05 IMPRESSION: 1. Right femoral neck fracture. 2. Nonobstructing renal calculi. Fluoroscopy 05/22/16 00:00 IMPRESSION: Please see combined report for performance of procedure and radiologic supervision and interpretation. Hip/Pelvis X-Ray 05/22/16 12:12 IMPRESSION: SATISFACTORY POSTOPERATIVE right HIP. Femur X-Ray 05/22/16 12:55 IMPRESSION: Status post right total hip replacement is noted above. An oblique lucency is identified within the cortex of the femur just proximal to the distal end of the femoral component of the hip prosthesis which has the appearance of a nondisplaced fracture line. Clinical correlation is recommended. Other findings as noted above. Chest X-Ray 05/25/16 00:00 IMPRESSION: 1. Support tubes and lines as above. 2. Mild cardiomegaly without congestion. No focal opacities. KUB X-Ray 05/25/16 00:00 IMPRESSION: No significant changes from prior study. Renal Ultrasound 05/25/16 00:00 IMPRESSION: Right nephrolithiasis. Bilateral renal atrophy. Assessment & Plan - Diagnosis (1) Acute blood loss as cause of postoperative anemia Is this a current diagnosis for this admission?: YesPlan: Positive occult blood. Patient currently holding hemoglobin. Repeat Occult blood. Believe this was still likely loss into the hip. (2) Sepsis Qualifiers: Sepsis type: Escherichia coli Qualified Code(s): A41.51 - Sepsis due to Escherichia coli [E. coli] Is this a current diagnosis for this admission?: YesPlan: Patient with Escherichia coli urinary tract infection and subsequent combined septic shock and hypovolemic shock. Completed ertapenem day #6. (3) Acute kidney injury superimposed on chronic kidney disease Is this a current diagnosis for this admission?: YesPlan: Improved. Appreciate Dr. Alex Gaviria, nephrology, for guidance on patient's acute kidney injury. Ultrasound reveals mildly atrophic kidneys without obstructing stone. (4) Displaced fracture of right femoral neck Is this a current diagnosis for this admission?: YesPlan: Will defer this and all issues arising from her fracture to the surgical team. (5) Hypotension Qualifiers: Hypotension type: postprocedural hypotension Qualified Code(s): I95.81 - Postprocedural hypotension Is this a current diagnosis for this admission?: Yes (6) Hypothyroid Qualifiers: Hypothyroidism type: acquired Qualified Code(s): E03.9 - Hypothyroidism, unspecified Is this a current diagnosis for this admission?: YesPlan: Continue Synthroid. TSH is normal (7) Anemia of chronic disease Is this a current diagnosis for this admission?: Yes (8) Chronic kidney disease, stage III (moderate) Is this a current diagnosis for this admission?: Yes (9) Dementia Qualifiers: Dementia type: unspecified type Dementia behavioral disturbance: without behavioral disturbance Qualified Code(s): F03.90 - Unspecified dementia without behavioral disturbance Is this a current diagnosis for this admission?: YesPlan: Will continue patient's home medications. Continue supportive care. (10) Gastroesophageal reflux disease Qualifiers: Esophagitis presence: without esophagitis Qualified Code(s): K21.9 - Gastro-esophageal reflux disease without esophagitis Is this a current diagnosis for this admission?: Yes (11) Hyperlipidemia Qualifiers: Hyperlipidemia type: unspecified Qualified Code(s): E78.5 - Hyperlipidemia, unspecified Is this a current diagnosis for this admission?: Yes (12) UTI (urinary tract infection) Qualifiers: Urinary tract infection type: site unspecified Hematuria presence: with hematuria Qualified Code(s): N39.0 - Urinary tract infection, site not specified Is this a current diagnosis for this admission?: Yes (13) Acute metabolic encephalopathy Is this a current diagnosis for this admission?: YesPlan: Slightly likely multifactorial secondary to sepsis, dementia, acute renal failure, benzodiazepine withdrawal, and ICU psychosis. Continue supportive care. Plan to begin working more aggressively with patient. Have decreased oxycodone and encourage stimulation. Will have nursing perform swallowing evaluation. (14) Thrombocytopenia Is this a current diagnosis for this admission?: Yes (15) Coagulopathy Is this a current diagnosis for this admission?: Yes (16) protein calorie malnourishment Is this a current diagnosis for this admission?: Yes (17) Morbid obesity Qualifiers: Obesity type: due to excess calories Qualified Code(s): E66.01 - Morbid (severe) obesity due to excess calories Is this a current diagnosis for this admission?: Yes - Time Time Spent with patient: 35 or more minutes Medications reviewed and adjusted accordingly: Yes - Plan Summary Plan Summary: Patient's daughter provided DO NOT RESUSCITATE paperwork. CODE STATUS changed.
[2016-05-28] MEDS: LIDOCAINE 5% (700 MG) TRANSDERMAL ADH..PATCH TOP SCH (16:45)
[2016-05-28] MEDS: LEVOTHYROXINE SODIUM 0.15 MG TABLET NG SCH (16:45)
[2016-05-28] MEDS: LORAZEPAM 1 MG TABLET NG SCH (21:47)
[2016-05-28] MEDS: LOSARTAN POTASSIUM 25 MG TABLET NG SCH (21:48)
[2016-05-28] MEDS: SIMVASTATIN 40 MG TABLET NG SCH (21:50)
[2016-05-28] MEDS: PHARMACY COMMUNICATION ORDER MC SCH (22:00)
[2016-05-29] MEDS: OXYCODONE HCL IR 5 MG TABLET NG PRN ×3 (05:12→17:27)
[2016-05-29 05:46] LABS: ABSOLUTE EOSINOPHILS # (AUTO) 0.8 10^3/uL (0.0-0.6); ABSOLUTE LYMPHOCYTES (AUTO) 3.5 10^3/uL (0.5-4.7); ABSOLUTE MONOCYTES (AUTO) 1.2 10^3/uL (0.1-1.4); ABSOLUTE NEUT (AUTO) 11.4 10^3/uL (1.7-8.2); BASOPHILS % (AUTO) 0.1 % (0-2); EOSINOPHILS % (AUTO) 4.6 % (0-6); HEMATOCRIT 34.8 % (36.0-47.0); HEMOGLOBIN 11.6 g/dL (12.0-15.5); LYMPHOCYTES % (AUTO) 20.7 % (13-45); MEAN CORPUSCULAR HEMOGLOBIN 29.6 pg (27.0-33.4); MEAN CORPUSCULAR HGB CONC 33.4 g/dL (32.0-36.0); MEAN CORPUSCULAR VOLUME 89 fl (80-97); MONOCYTES % (AUTO) 6.9 % (3-13); RED BLOOD COUNT 3.93 10^6/uL (3.72-5.28); RED CELL DISTRIBUTION WIDTH 14.6 % (11.5-14.0); SEGMENTED NEUTROPHILS % (AUTO) 67.7 % (42-78); WHITE BLOOD COUNT 16.8 10^3/uL (4.0-10.5)
[2016-05-29 05:57] LABS: ANION GAP 9 (5-19); BLOOD UREA NITROGEN 44 mg/dL (7-20); CALCIUM 8.2 mg/dL (8.4-10.2); CARBON DIOXIDE 28 mmol/L (22-30); CHLORIDE 100 mmol/L (98-107); CREATININE RESULT 1.02 mg/dL (0.52-1.25); GLUCOSE 137 mg/dL (75-110); POTASSIUM 3.4 mmol/L (3.6-5.0); SODIUM 137.3 mmol/L (137-145)
[2016-05-29] MEDS: SERTRALINE HCL 50 MG TABLET NG SCH ×2 (09:48→21:00)
[2016-05-29] MEDS: LACTOBACILLUS ACIDOPHILUS 250 MG TAB NG SCH ×2 (09:49→17:26)
[2016-05-29] MEDS: AMLODIPINE BESYLATE 10 MG TABLET NG SCH (09:50)
[2016-05-29] MEDS: METOPROLOL TARTRATE 25 MG TABLET NG SCH ×2 (09:52→21:46)
[2016-05-29] MEDS: LOSARTAN POTASSIUM 25 MG TABLET NG SCH ×2 (09:53→21:01)
[2016-05-29] MEDS: LIDOCAINE 5% (700 MG) TRANSDERMAL ADH..PATCH TOP SCH (10:01)
[2016-05-29] MEDS: DOCUSATE SODIUM 100 MG CAPSULE PO SCH (10:01)
[2016-05-29] MEDS: HEPARIN SOD (PORCINE) 5,000 UNIT/ML 1 ML SYRINGE SUBCUT SCH ×2 (14:23→21:04)
[2016-05-29] MEDS: ACETAMINOPHEN SOLN 325 MG/10.15 ML UDCUP NG PRN ×2 (14:26→21:00)
--- NOTE | 2016-05-29 16:54 | PDOC PROGRESS REPORT ---
Subjective Progress Note for:: 05/29/16 Subjective:: Patient is awake and alert today. She has no complaints. No acute events overnight. Limited review of systems secondary to dementia Patient denies chest pain, shortness of breath, abdominal pain, nausea, vomiting , fevers, chills. Physical Exam Vital Signs: Temp Pulse Resp BP Pulse Ox 98.1 F 99 18 133/76 H 93 05/29/16 05:39 05/29/16 07:00 05/29/16 05:39 05/29/16 05:39 05/29/16 05:39 Intake & Output 05/28/16 05/29/16 05/30/16 06:59 06:59 06:59 Intake Total 1059 1557 Output Total 900 700 Balance 159 857 Weight 87.5 kg 87.4 kg Exam: General: A+Ox1, no acute respiratory distress HEENT: AT/NC, PERRL, oropharynx is moist, pink, no scleral icterus, no conjunctival injection, NG in place Neck: No JVD, trachea midline Chest: Coarse bilaterally CV: Regular rate and rhythm, normal S1 and S2, no rub, or gallop; 3/6 sm lusb Abdomen: Soft, NTTP, mildly distended, active bowel sounds; no rebound, rigidity , or guarding Extremities: No cyanosis, clubbing; 2+ edema; right leg edematous, dressing in place serous sanguinous Neuro: nod head to question Results Laboratory Results: 05/29/16 05:00 05/29/16 05:00 05/29/16 05/29/16 05:00 05:00 WBC 16.8 H RBC 3.93 Hgb 11.6 L Hct 34.8 L MCV 89 MCH 29.6 MCHC 33.4 RDW 14.6 H Plt Count 153 Seg Neutrophils % 67.7 Lymphocytes % 20.7 Monocytes % 6.9 Eosinophils % 4.6 Basophils % 0.1 Absolute Neutrophils 11.4 H Absolute Lymphocytes 3.5 Absolute Monocytes 1.2 Absolute Eosinophils 0.8 H Absolute Basophils 0.0 Sodium 137.3 Potassium 3.4 L Chloride 100 Carbon Dioxide 28 Anion Gap 9 BUN 44 H Creatinine 1.02 Est GFR ( Amer) > 60 Est GFR (Non-Af Amer) 52 L Glucose 137 H Calcium 8.2 L Impressions: Abdomen/Pelvis CT 05/21/16 12:05 IMPRESSION: 1. Right femoral neck fracture. 2. Nonobstructing renal calculi. Fluoroscopy 05/22/16 00:00 IMPRESSION: Please see combined report for performance of procedure and radiologic supervision and interpretation. Hip/Pelvis X-Ray 05/22/16 12:12 IMPRESSION: SATISFACTORY POSTOPERATIVE right HIP. Femur X-Ray 05/22/16 12:55 IMPRESSION: Status post right total hip replacement is noted above. An oblique lucency is identified within the cortex of the femur just proximal to the distal end of the femoral component of the hip prosthesis which has the appearance of a nondisplaced fracture line. Clinical correlation is recommended. Other findings as noted above. Chest X-Ray 05/25/16 00:00 IMPRESSION: 1. Support tubes and lines as above. 2. Mild cardiomegaly without congestion. No focal opacities. KUB X-Ray 05/25/16 00:00 IMPRESSION: No significant changes from prior study. Renal Ultrasound 05/25/16 00:00 IMPRESSION: Right nephrolithiasis. Bilateral renal atrophy. Assessment & Plan - Diagnosis (1) Acute blood loss as cause of postoperative anemia Is this a current diagnosis for this admission?: YesPlan: Positive occult blood. Patient currently holding hemoglobin. Repeat Occult blood. Believe this was still likely loss into the hip. (2) Sepsis Qualifiers: Sepsis type: Escherichia coli Qualified Code(s): A41.51 - Sepsis due to Escherichia coli [E. coli] Is this a current diagnosis for this admission?: YesPlan: Patient with Escherichia coli urinary tract infection and subsequent combined septic shock and hypovolemic shock. Completed ertapenem day #7 Repeat urine culture reveals Brianne. (3) Acute kidney injury superimposed on chronic kidney disease Is this a current diagnosis for this admission?: YesPlan: Improved. This was secondary to dehydration, UTI and sepsis. Appreciate Dr. Alex Gaviria, nephrology, for guidance on patient's acute kidney injury. Ultrasound reveals mildly atrophic kidneys without obstructing stone. (4) Displaced fracture of right femoral neck Is this a current diagnosis for this admission?: YesPlan: Will defer this and all issues arising from her fracture to the surgical team. (5) Hypotension Qualifiers: Hypotension type: postprocedural hypotension Qualified Code(s): I95.81 - Postprocedural hypotension Is this a current diagnosis for this admission?: Yes (6) Hypothyroid Qualifiers: Hypothyroidism type: acquired Qualified Code(s): E03.9 - Hypothyroidism, unspecified Is this a current diagnosis for this admission?: YesPlan: Continue Synthroid. TSH is normal (7) Anemia of chronic disease Is this a current diagnosis for this admission?: Yes (8) Chronic kidney disease, stage III (moderate) Is this a current diagnosis for this admission?: Yes (9) Dementia Qualifiers: Dementia type: unspecified type Dementia behavioral disturbance: without behavioral disturbance Qualified Code(s): F03.90 - Unspecified dementia without behavioral disturbance Is this a current diagnosis for this admission?: YesPlan: Patient will need rehabilitation. Continue supportive care. (10) Gastroesophageal reflux disease Qualifiers: Esophagitis presence: without esophagitis Qualified Code(s): K21.9 - Gastro-esophageal reflux disease without esophagitis Is this a current diagnosis for this admission?: Yes (11) Hyperlipidemia Qualifiers: Hyperlipidemia type: unspecified Qualified Code(s): E78.5 - Hyperlipidemia, unspecified Is this a current diagnosis for this admission?: Yes (12) UTI (urinary tract infection) Qualifiers: Urinary tract infection type: site unspecified Hematuria presence: with hematuria Qualified Code(s): N39.0 - Urinary tract infection, site not specified Is this a current diagnosis for this admission?: YesPlan: Patient currently completed 7 days of Invanz for Escherichia coli UTI (13) Acute metabolic encephalopathy Is this a current diagnosis for this admission?: YesPlan: Slightly likely multifactorial secondary to sepsis, dementia, acute renal failure, benzodiazepine withdrawal, and ICU psychosis. Continue supportive care. Plan to begin working more aggressively with patient. Encourage stimulation. Will have nursing perform swallowing evaluation. Decrease evening Ativan. Patient was taking 2 mg by mouth daily at bedtime and has been receiving 1 mg here. Will further decrease. Family did not feel it was actually helping her when she was at home. (14) Thrombocytopenia Is this a current diagnosis for this admission?: YesPlan: Improved. Likely secondary to underlying sepsis. Heparin antibodies are negative. Plan antiplatelet antibodies are negative. Hepatitis panel is negative. (15) Coagulopathy Is this a current diagnosis for this admission?: Yes (16) protein calorie malnourishment Is this a current diagnosis for this admission?: YesPlan: Patient has an albumin of 2.2. Patient has been receiving tube feeds prior to today. Will have nursing evaluate her ability to swallow and found to be impaired will have speech see this patient. Appreciate dietary input. (17) Morbid obesity Qualifiers: Obesity type: due to excess calories Qualified Code(s): E66.01 - Morbid (severe) obesity due to excess calories Is this a current diagnosis for this admission?: Yes
[2016-05-29] MEDS: LEVOTHYROXINE SODIUM 0.15 MG TABLET NG SCH (17:26)
[2016-05-29] MEDS: DOCUSATE SODIUM 100 MG/10 ML UDC NG SCH (17:30)
[2016-05-29] MEDS: SIMVASTATIN 40 MG TABLET NG SCH (21:00)
[2016-05-29] MEDS: PHARMACY COMMUNICATION ORDER MC SCH (21:00)
[2016-05-29] MEDS: LORAZEPAM 0.5 MG TABLET NG SCH (21:00)
[2016-05-30] MEDS: OXYCODONE HCL IR 5 MG TABLET NG PRN ×2 (00:04→15:45)
[2016-05-30] MEDS: HEPARIN SOD (PORCINE) 5,000 UNIT/ML 1 ML SYRINGE SUBCUT SCH ×3 (05:17→22:05)
[2016-05-30] MEDS: DOCUSATE SODIUM 100 MG/10 ML UDC NG SCH (09:11)
[2016-05-30] MEDS: METOPROLOL TARTRATE 25 MG TABLET NG SCH ×2 (10:03→22:04)
[2016-05-30] MEDS: SERTRALINE HCL 50 MG TABLET NG SCH ×2 (10:03→22:01)
[2016-05-30] MEDS: LOSARTAN POTASSIUM 25 MG TABLET NG SCH ×2 (10:03→22:02)
[2016-05-30] MEDS: AMLODIPINE BESYLATE 10 MG TABLET NG SCH (10:04)
[2016-05-30] MEDS: LACTOBACILLUS ACIDOPHILUS 250 MG TAB NG SCH ×2 (10:04→17:49)
[2016-05-30] MEDS: LIDOCAINE 5% (700 MG) TRANSDERMAL ADH..PATCH TOP SCH (10:04)
[2016-05-30 11:06] LABS: ABSOLUTE EOSINOPHILS # (AUTO) 0.7 10^3/uL (0.0-0.6); ABSOLUTE LYMPHOCYTES (AUTO) 2.9 10^3/uL (0.5-4.7); ABSOLUTE NEUT (AUTO) 9.7 10^3/uL (1.7-8.2); BASOPHILS % (AUTO) 0.1 % (0-2); EOSINOPHILS % (AUTO) 4.6 % (0-6); HEMATOCRIT 35.9 % (36.0-47.0); HEMOGLOBIN 11.9 g/dL (12.0-15.5); HGB HCT DIFFERENCE -0.2; LYMPHOCYTES % (AUTO) 20.5 % (13-45); MEAN CORPUSCULAR HEMOGLOBIN 29.4 pg (27.0-33.4); MEAN CORPUSCULAR HGB CONC 33.2 g/dL (32.0-36.0); MEAN CORPUSCULAR VOLUME 89 fl (80-97); MONOCYTES % (AUTO) 7.1 % (3-13); RED BLOOD COUNT 4.05 10^6/uL (3.72-5.28); SEGMENTED NEUTROPHILS % (AUTO) 67.7 % (42-78); WHITE BLOOD COUNT 14.3 10^3/uL (4.0-10.5)
[2016-05-30 11:19] LABS: ANION GAP 8 (5-19); BLOOD UREA NITROGEN 43 mg/dL (7-20); CALCIUM 8.7 mg/dL (8.4-10.2); CARBON DIOXIDE 31 mmol/L (22-30); CHLORIDE 99 mmol/L (98-107); CREATININE RESULT 1.01 mg/dL (0.52-1.25); GLUCOSE 133 mg/dL (75-110); POTASSIUM 3.5 mmol/L (3.6-5.0); SODIUM 137.5 mmol/L (137-145)
--- NOTE | 2016-05-30 13:13 | PDOC PROGRESS REPORT ---
Subjective Progress Note for:: 05/30/16 Subjective:: Patient seen and evaluated this morning. Much more alert. Not complaining of pain currently. No issues overnight according to nursing staff. Physical Exam Vital Signs: Temp Pulse Resp BP Pulse Ox 98.1 F 74 18 131/81 H 95 05/30/16 11:26 05/30/16 11:26 05/30/16 11:26 05/30/16 11:26 05/30/16 11:26 Intake & Output 05/29/16 05/30/16 05/31/16 06:59 06:59 06:59 Intake Total 1557 505 223 Output Total 700 250 Balance 857 255 223 Weight 87.4 kg 87.8 kg Musculoskeletal exam: PRESENT: other - Right hip: Serosanguineous drainage from the wound site. Dressing changed today. There is mild ecchymosis no erythema or purulent drainage. Minimal swelling. Intact plantar flexion/dorsiflexion. No calf tenderness. Results Laboratory Results: 05/30/16 10:29 05/30/16 10:29 05/29/16 05/30/16 05/30/16 15:20 09:26 10:29 WBC 14.3 H RBC 4.05 Hgb 11.9 L Hct 35.9 L MCV 89 MCH 29.4 MCHC 33.2 RDW 15.0 H Plt Count 182 Seg Neutrophils % 67.7 Lymphocytes % 20.5 Monocytes % 7.1 Eosinophils % 4.6 Basophils % 0.1 Absolute Neutrophils 9.7 H Absolute Lymphocytes 2.9 Absolute Monocytes 1.0 Absolute Eosinophils 0.7 H Absolute Basophils 0.0 Sodium Cancelled Potassium Cancelled Chloride Cancelled Carbon Dioxide Cancelled Anion Gap Cancelled BUN Cancelled Creatinine Cancelled Est GFR ( Amer) Cancelled Est GFR (Non-Af Amer) Cancelled Glucose Cancelled Calcium Cancelled Magnesium Cancelled Stool Occult Blood NEGATIVE 05/30/16 10:29 WBC RBC Hgb Hct MCV MCH MCHC RDW Plt Count Seg Neutrophils % Lymphocytes % Monocytes % Eosinophils % Basophils % Absolute Neutrophils Absolute Lymphocytes Absolute Monocytes Absolute Eosinophils Absolute Basophils Sodium 137.5 Potassium 3.5 L Chloride 99 Carbon Dioxide 31 H Anion Gap 8 BUN 43 H Creatinine 1.01 Est GFR ( Amer) > 60 Est GFR (Non-Af Amer) 52 L Glucose 133 H Calcium 8.7 Magnesium 2.0 Stool Occult Blood 05/24/16 12:50 Blood Blood Culture - Final NO GROWTH IN 5 DAYS 05/24/16 12:00 Blood Blood Culture - Final NO GROWTH IN 5 DAYS Impressions: Abdomen/Pelvis CT 05/21/16 12:05 IMPRESSION: 1. Right femoral neck fracture. 2. Nonobstructing renal calculi. Fluoroscopy 05/22/16 00:00 IMPRESSION: Please see combined report for performance of procedure and radiologic supervision and interpretation. Hip/Pelvis X-Ray 05/22/16 12:12 IMPRESSION: SATISFACTORY POSTOPERATIVE right HIP. Femur X-Ray 05/22/16 12:55 IMPRESSION: Status post right total hip replacement is noted above. An oblique lucency is identified within the cortex of the femur just proximal to the distal end of the femoral component of the hip prosthesis which has the appearance of a nondisplaced fracture line. Clinical correlation is recommended. Other findings as noted above. KUB X-Ray 05/25/16 00:00 IMPRESSION: No significant changes from prior study. Renal Ultrasound 05/25/16 00:00 IMPRESSION: Right nephrolithiasis. Bilateral renal atrophy. Chest X-Ray 05/29/16 06:00 IMPRESSION: No acute findings. Nasogastric tube, right subclavian line in good positioning Assessment & Plan - Diagnosis (1) Displaced fracture of right femoral neck Is this a current diagnosis for this admission?: YesPlan: Patient has seen significant improvement over the past 7 days. Her medical issues are beginning to resolve and to Dr. Anthony and the medical team. She continues to have some serosanguineous drainage from the on the dressing which is likely due to fluid overload and third spacing. I feel once this third spacing resolves the drainage will as well.
[2016-05-30] MEDS: LEVOTHYROXINE SODIUM 0.15 MG TABLET NG SCH (15:49)
[2016-05-30] MEDS: DOCUSATE SODIUM 100 MG CAPSULE PO SCH (17:45)
[2016-05-30] MEDS: ACETAMINOPHEN SOLN 325 MG/10.15 ML UDCUP NG PRN (21:56)
[2016-05-30] MEDS: SIMVASTATIN 40 MG TABLET NG SCH (22:02)
--- NOTE | 2016-05-30 22:03 | PDOC PROGRESS REPORT ---
Subjective Progress Note for:: 05/30/16 Subjective:: Patient is sitting up awake alert and answering questions appropriately. She is in the company of her 2 daughters and son-in-law. Patient denies chest pain, abdominal pain, nausea, vomiting, fevers, chills, constipation, headache, new onset weakness. Patient has some loose stool. Patient was able to complete swallow evaluation with speech therapy who recommended. And then with no straw Physical Exam Vital Signs: Temp Pulse Resp BP Pulse Ox 98.0 F 71 18 129/76 H 99 05/30/16 03:34 05/30/16 03:34 05/30/16 03:34 05/30/16 03:34 05/30/16 03:34 Intake & Output 05/29/16 05/30/16 05/31/16 06:59 06:59 06:59 Intake Total 1557 505 Output Total 700 250 Balance 857 255 Weight 87.4 kg 87.8 kg Exam: General: A+Ox1, no acute respiratory distress HEENT: AT/NC, PERRL, oropharynx is moist, pink, no scleral icterus, no conjunctival injection, NG in place Neck: No JVD, trachea midline Chest: Occasional rhonchi CV: Regular rate and rhythm, normal S1 and S2, no rub, or gallop; 3/6 sm lusb Abdomen: Soft, NTTP, mildly distended, active bowel sounds; no rebound, rigidity , or guarding Extremities: No cyanosis, clubbing; 1+ edema; right leg edematous, dressing in place serous drainage Neuro: Cranial nerves grossly intact without focal deficits, moves all extremities Psych: Normal mood and affect Results Laboratory Results: 05/29/16 05:00 05/29/16 05:00 05/29/16 05/29/16 05:00 15:20 Magnesium 1.9 Stool Occult Blood NEGATIVE 05/24/16 12:50 Blood Blood Culture - Final NO GROWTH IN 5 DAYS 05/24/16 12:00 Blood Blood Culture - Final NO GROWTH IN 5 DAYS Impressions: Abdomen/Pelvis CT 05/21/16 12:05 IMPRESSION: 1. Right femoral neck fracture. 2. Nonobstructing renal calculi. Fluoroscopy 05/22/16 00:00 IMPRESSION: Please see combined report for performance of procedure and radiologic supervision and interpretation. Hip/Pelvis X-Ray 05/22/16 12:12 IMPRESSION: SATISFACTORY POSTOPERATIVE right HIP. Femur X-Ray 05/22/16 12:55 IMPRESSION: Status post right total hip replacement is noted above. An oblique lucency is identified within the cortex of the femur just proximal to the distal end of the femoral component of the hip prosthesis which has the appearance of a nondisplaced fracture line. Clinical correlation is recommended. Other findings as noted above. KUB X-Ray 05/25/16 00:00 IMPRESSION: No significant changes from prior study. Renal Ultrasound 05/25/16 00:00 IMPRESSION: Right nephrolithiasis. Bilateral renal atrophy. Chest X-Ray 05/29/16 06:00 IMPRESSION: No acute findings. Nasogastric tube, right subclavian line in good positioning Assessment & Plan - Diagnosis (1) Acute blood loss as cause of postoperative anemia Is this a current diagnosis for this admission?: YesPlan: Positive occult blood. Patient currently holding hemoglobin. Repeat Occult blood. Believe this was still likely loss into the hip. (2) Sepsis Qualifiers: Sepsis type: Escherichia coli Qualified Code(s): A41.51 - Sepsis due to Escherichia coli [E. coli] Is this a current diagnosis for this admission?: YesPlan: Patient with Escherichia coli urinary tract infection and subsequent combined septic shock and hypovolemic shock. Completed ertapenem day #7 Repeat urine culture reveals Brianne. (3) Acute kidney injury superimposed on chronic kidney disease Is this a current diagnosis for this admission?: YesPlan: Improved. This was secondary to dehydration, UTI and sepsis. Appreciate Dr. Alex Gaviria, nephrology, for guidance on patient's acute kidney injury. Ultrasound reveals mildly atrophic kidneys without obstructing stone. (4) Displaced fracture of right femoral neck Is this a current diagnosis for this admission?: YesPlan: Will defer this and all issues arising from her fracture to the surgical team. (5) Hypotension Qualifiers: Hypotension type: postprocedural hypotension Qualified Code(s): I95.81 - Postprocedural hypotension Is this a current diagnosis for this admission?: Yes (6) Hypothyroid Qualifiers: Hypothyroidism type: acquired Qualified Code(s): E03.9 - Hypothyroidism, unspecified Is this a current diagnosis for this admission?: Yes (7) Anemia of chronic disease Is this a current diagnosis for this admission?: Yes (8) Chronic kidney disease, stage III (moderate) Is this a current diagnosis for this admission?: Yes (9) Dementia Qualifiers: Dementia type: unspecified type Dementia behavioral disturbance: without behavioral disturbance Qualified Code(s): F03.90 - Unspecified dementia without behavioral disturbance Is this a current diagnosis for this admission?: Yes (10) Gastroesophageal reflux disease Qualifiers: Esophagitis presence: without esophagitis Qualified Code(s): K21.9 - Gastro-esophageal reflux disease without esophagitis Is this a current diagnosis for this admission?: Yes (11) Hyperlipidemia Qualifiers: Hyperlipidemia type: unspecified Qualified Code(s): E78.5 - Hyperlipidemia, unspecified Is this a current diagnosis for this admission?: Yes (12) UTI (urinary tract infection) Qualifiers: Urinary tract infection type: site unspecified Hematuria presence: with hematuria Qualified Code(s): N39.0 - Urinary tract infection, site not specified Is this a current diagnosis for this admission?: Yes (13) Acute metabolic encephalopathy Is this a current diagnosis for this admission?: YesPlan: Resolved. Patient is currently at her baseline. (14) Thrombocytopenia Is this a current diagnosis for this admission?: Yes (15) Coagulopathy Is this a current diagnosis for this admission?: Yes (16) protein calorie malnourishment Is this a current diagnosis for this admission?: Yes (17) Morbid obesity Qualifiers: Obesity type: due to excess calories Qualified Code(s): E66.01 - Morbid (severe) obesity due to excess calories Is this a current diagnosis for this admission?: Yes - Time Time Spent with patient: 25-34 minutes Medications reviewed and adjusted accordingly: Yes Anticipated discharge: Acute Rehab Within: when bed available
[2016-05-30] MEDS: LORAZEPAM 0.5 MG TABLET NG SCH (22:04)
[2016-05-30] MEDS: PHARMACY COMMUNICATION ORDER MC SCH (22:10)
[2016-05-31 04:54] LABS: HEMATOCRIT 31.5 % (36.0-47.0); HEMOGLOBIN 10.5 g/dL (12.0-15.5); MEAN CORPUSCULAR HEMOGLOBIN 29.6 pg (27.0-33.4); MEAN CORPUSCULAR HGB CONC 33.4 g/dL (32.0-36.0); MEAN CORPUSCULAR VOLUME 89 fl (80-97); RED BLOOD COUNT 3.56 10^6/uL (3.72-5.28); RED CELL DISTRIBUTION WIDTH 14.7 % (11.5-14.0); WHITE BLOOD COUNT 13.5 10^3/uL (4.0-10.5)
[2016-05-31 05:17] LABS: ANION GAP 9 (5-19); BLOOD UREA NITROGEN 40 mg/dL (7-20); CALCIUM 8.4 mg/dL (8.4-10.2); CARBON DIOXIDE 29 mmol/L (22-30); CHLORIDE 100 mmol/L (98-107); CREATININE RESULT 0.95 mg/dL (0.52-1.25); GLUCOSE 92 mg/dL (75-110); POTASSIUM 3.9 mmol/L (3.6-5.0); SODIUM 137.9 mmol/L (137-145)
[2016-05-31 05:31] LABS: BASOPHILS % (MANUAL) 0 % (0-2); EOSINOPHILS % (MANUAL) 4 % (0-6); LYMPHOCYTES % (MANUAL) 23 % (13-45); TOTAL CELLS COUNTED 100
[2016-05-31 05:35] LABS: ANISOCYTOSIS SLIGHT; OVALOCYTES SLIGHT; POIKILOCYTOSIS SLIGHT; POLYCHROMASIA SLIGHT; SCHISTOCYTES SLIGHT; TOXIC GRANULATION 1+
[2016-05-31] MEDS: HEPARIN SOD (PORCINE) 5,000 UNIT/ML 1 ML SYRINGE SUBCUT SCH ×3 (05:53→22:07)
--- NOTE | 2016-05-31 09:09 | PDOC PROGRESS REPORT ---
Subjective Progress Note for:: 05/31/16 Subjective:: Patient seen this morning. No issues overnight. Family at bedside. The states she has been able to eat some sporting has also been talking. Was able to do therapy yesterday with maximal assistance but did stand. Physical Exam Vital Signs: Temp Pulse Resp BP Pulse Ox 98.2 F 105 H 18 129/84 H 99 05/31/16 07:33 05/31/16 07:33 05/31/16 07:33 05/31/16 07:33 05/31/16 07:33 Intake & Output 05/30/16 05/31/16 06/01/16 06:59 06:59 06:59 Intake Total 505 728 Output Total 250 Balance 255 728 Weight 87.8 kg 89.1 kg Musculoskeletal exam: PRESENT: other - Right hip: Dressing continues to demonstrate serosanguineous drainage which is clear nature no evidence of erythema along the wound. No change and ecchymosis. Minimal thigh swelling. Intact plantar flexion dorsiflexion. No calf tenderness. Results Laboratory Results: 05/31/16 04:17 05/31/16 04:17 05/30/16 05/30/16 05/30/16 09:26 10:29 10:29 WBC 14.3 H RBC 4.05 Hgb 11.9 L Hct 35.9 L MCV 89 MCH 29.4 MCHC 33.2 RDW 15.0 H Plt Count 182 Seg Neutrophils % 67.7 Lymphocytes % 20.5 Monocytes % 7.1 Eosinophils % 4.6 Basophils % 0.1 Absolute Neutrophils 9.7 H Absolute Lymphocytes 2.9 Absolute Monocytes 1.0 Absolute Eosinophils 0.7 H Absolute Basophils 0.0 Sodium Cancelled 137.5 Potassium Cancelled 3.5 L Chloride Cancelled 99 Carbon Dioxide Cancelled 31 H Anion Gap Cancelled 8 BUN Cancelled 43 H Creatinine Cancelled 1.01 Est GFR ( Amer) Cancelled > 60 Est GFR (Non-Af Amer) Cancelled 52 L Glucose Cancelled 133 H Calcium Cancelled 8.7 Magnesium Cancelled 2.0 05/31/16 05/31/16 04:17 04:17 WBC 13.5 H RBC 3.56 L Hgb 10.5 L Hct 31.5 L MCV 89 MCH 29.6 MCHC 33.4 RDW 14.7 H Plt Count 184 Seg Neutrophils % Not Reportable Lymphocytes % Not Reportable Monocytes % Not Reportable Eosinophils % Not Reportable Basophils % Not Reportable Absolute Neutrophils Not Reportable Absolute Lymphocytes Not Reportable Absolute Monocytes Not Reportable Absolute Eosinophils Not Reportable Absolute Basophils Not Reportable Sodium 137.9 Potassium 3.9 Chloride 100 Carbon Dioxide 29 Anion Gap 9 BUN 40 H Creatinine 0.95 Est GFR ( Amer) > 60 Est GFR (Non-Af Amer) 56 L Glucose 92 Calcium 8.4 Magnesium Impressions: Abdomen/Pelvis CT 05/21/16 12:05 IMPRESSION: 1. Right femoral neck fracture. 2. Nonobstructing renal calculi. Fluoroscopy 05/22/16 00:00 IMPRESSION: Please see combined report for performance of procedure and radiologic supervision and interpretation. Hip/Pelvis X-Ray 05/22/16 12:12 IMPRESSION: SATISFACTORY POSTOPERATIVE right HIP. Femur X-Ray 05/22/16 12:55 IMPRESSION: Status post right total hip replacement is noted above. An oblique lucency is identified within the cortex of the femur just proximal to the distal end of the femoral component of the hip prosthesis which has the appearance of a nondisplaced fracture line. Clinical correlation is recommended. Other findings as noted above. KUB X-Ray 05/25/16 00:00 IMPRESSION: No significant changes from prior study. Renal Ultrasound 05/25/16 00:00 IMPRESSION: Right nephrolithiasis. Bilateral renal atrophy. Chest X-Ray 05/29/16 06:00 IMPRESSION: No acute findings. Nasogastric tube, right subclavian line in good positioning Assessment & Plan - Diagnosis (1) Displaced fracture of right femoral neck Is this a current diagnosis for this admission?: YesPlan: Status post right hip hemiarthroplasty with ORIF femoral shaft #1 physical therapy weightbearing as tolerated with hip precautions #2 continues to have postoperative wound drainage patient currently not on antibiotics however because there is no sign or symptoms of infection despite the drainage which is likely secondary to third space fluid the patient received to maintain her blood pressure. I discussed the case with Dr. Shaw yesterday and we feel antibiotics increase her risk of possible C. difficile as opposed to treat her drainage prophylactically. #3 discharge planning to retirement facility when bed available.
[2016-05-31] MEDS: METOPROLOL TARTRATE 25 MG TABLET NG SCH ×2 (09:56→22:08)
[2016-05-31] MEDS: AMLODIPINE BESYLATE 10 MG TABLET NG SCH (09:57)
[2016-05-31] MEDS: LACTOBACILLUS ACIDOPHILUS 250 MG TAB NG SCH ×2 (09:57→19:01)
[2016-05-31] MEDS: SERTRALINE HCL 50 MG TABLET NG SCH ×2 (09:57→22:08)
[2016-05-31] MEDS: LOSARTAN POTASSIUM 25 MG TABLET NG SCH ×2 (09:57→22:08)
[2016-05-31] MEDS: OXYCODONE HCL IR 5 MG TABLET NG PRN (09:58)
[2016-05-31] MEDS: DOCUSATE SODIUM 100 MG CAPSULE PO SCH ×2 (09:59→19:06)
[2016-05-31] MEDS: LIDOCAINE 5% (700 MG) TRANSDERMAL ADH..PATCH TOP SCH (09:59)
[2016-05-31] MEDS: LEVOTHYROXINE SODIUM 0.15 MG TABLET NG SCH (19:01)
--- NOTE | 2016-05-31 19:22 | PDOC PROGRESS REPORT ---
Subjective Progress Note for:: 05/31/16 Subjective:: Patient is awake and able to converse but has significant dementia. Patient denies fever, chills, headache, new focal weakness, chest pain, shortness of breath, abdominal pain, nausea, vomiting, diarrhea, constipation. Physical Exam Vital Signs: Temp Pulse Resp BP Pulse Ox 98.1 F 94 16 123/74 97 05/31/16 15:05 05/31/16 15:05 05/31/16 15:05 05/31/16 15:05 05/31/16 15:05 Intake & Output 05/30/16 05/31/16 06/01/16 06:59 06:59 06:59 Intake Total 505 728 502 Output Total 250 Balance 255 728 502 Weight 87.8 kg 89.1 kg 89.1 kg Exam: General: A+Ox1, no acute respiratory distress HEENT: AT/NC, PERRL, oropharynx is moist, pink, no scleral icterus, no conjunctival injection, NG in place Neck: No JVD, trachea midline Chest: Occasional rhonchi CV: Regular rate and rhythm, normal S1 and S2, no rub, or gallop; 3/6 sm lusb Abdomen: Soft, NTTP, mildly distended, active bowel sounds; no rebound, rigidity , or guarding Extremities: No cyanosis, clubbing; 1+ edema; right leg edematous, dressing in place serous drainage Neuro: Cranial nerves grossly intact without focal deficits, moves all extremities Psych: Normal mood and affect Results Laboratory Results: 05/31/16 04:17 05/31/16 04:17 05/31/16 05/31/16 04:17 04:17 WBC 13.5 H RBC 3.56 L Hgb 10.5 L Hct 31.5 L MCV 89 MCH 29.6 MCHC 33.4 RDW 14.7 H Plt Count 184 Seg Neutrophils % Not Reportable Lymphocytes % Not Reportable Monocytes % Not Reportable Eosinophils % Not Reportable Basophils % Not Reportable Absolute Neutrophils Not Reportable Absolute Lymphocytes Not Reportable Absolute Monocytes Not Reportable Absolute Eosinophils Not Reportable Absolute Basophils Not Reportable Sodium 137.9 Potassium 3.9 Chloride 100 Carbon Dioxide 29 Anion Gap 9 BUN 40 H Creatinine 0.95 Est GFR ( Amer) > 60 Est GFR (Non-Af Amer) 56 L Glucose 92 Calcium 8.4 Impressions: Abdomen/Pelvis CT 05/21/16 12:05 IMPRESSION: 1. Right femoral neck fracture. 2. Nonobstructing renal calculi. Fluoroscopy 05/22/16 00:00 IMPRESSION: Please see combined report for performance of procedure and radiologic supervision and interpretation. Hip/Pelvis X-Ray 05/22/16 12:12 IMPRESSION: SATISFACTORY POSTOPERATIVE right HIP. Femur X-Ray 05/22/16 12:55 IMPRESSION: Status post right total hip replacement is noted above. An oblique lucency is identified within the cortex of the femur just proximal to the distal end of the femoral component of the hip prosthesis which has the appearance of a nondisplaced fracture line. Clinical correlation is recommended. Other findings as noted above. KUB X-Ray 05/25/16 00:00 IMPRESSION: No significant changes from prior study. Renal Ultrasound 05/25/16 00:00 IMPRESSION: Right nephrolithiasis. Bilateral renal atrophy. Chest X-Ray 05/29/16 06:00 IMPRESSION: No acute findings. Nasogastric tube, right subclavian line in good positioning Assessment & Plan - Diagnosis (1) Displaced fracture of right femoral neck Is this a current diagnosis for this admission?: YesPlan: Status post fixation. Awaiting rehabilitation. (2) Sepsis Qualifiers: Sepsis type: Escherichia coli Qualified Code(s): A41.51 - Sepsis due to Escherichia coli [E. coli] Is this a current diagnosis for this admission?: Yes (3) UTI (urinary tract infection) Qualifiers: Urinary tract infection type: site unspecified Hematuria presence: with hematuria Qualified Code(s): N39.0 - Urinary tract infection, site not specified Is this a current diagnosis for this admission?: YesPlan: Urine growing Escherichia coli. (4) Acute blood loss as cause of postoperative anemia Is this a current diagnosis for this admission?: YesPlan: Transfuse 5 units of blood this admission. Blood count now stable (5) Acute kidney injury superimposed on chronic kidney disease Is this a current diagnosis for this admission?: YesPlan: Kidney function now normal. (6) Hypothyroid Qualifiers: Hypothyroidism type: acquired Qualified Code(s): E03.9 - Hypothyroidism, unspecified Is this a current diagnosis for this admission?: Yes (7) Dementia Qualifiers: Dementia type: unspecified type Dementia behavioral disturbance: without behavioral disturbance Qualified Code(s): F03.90 - Unspecified dementia without behavioral disturbance Is this a current diagnosis for this admission?: YesPlan: Continue supportive care. Patient was residing at home but will require acute rehabilitation. (8) Essential hypertension Is this a current diagnosis for this admission?: Yes
[2016-05-31] MEDS: SIMVASTATIN 40 MG TABLET NG SCH (22:07)
[2016-05-31] MEDS: LORAZEPAM 0.5 MG TABLET NG SCH (22:08)
[2016-05-31] MEDS: PHARMACY COMMUNICATION ORDER MC SCH (22:39)
[2016-06-01] MEDS: OXYCODONE HCL IR 5 MG TABLET NG PRN ×3 (02:41→18:52)
[2016-06-01 05:20] LABS: ABSOLUTE BASOPHILS # (AUTO) 0.1 10^3/uL (0.0-0.2); ABSOLUTE EOSINOPHILS # (AUTO) 0.4 10^3/uL (0.0-0.6); ABSOLUTE LYMPHOCYTES (AUTO) 3.6 10^3/uL (0.5-4.7); ABSOLUTE MONOCYTES (AUTO) 1.3 10^3/uL (0.1-1.4); ABSOLUTE NEUT (AUTO) 8.3 10^3/uL (1.7-8.2); BASOPHILS % (AUTO) 0.4 % (0-2); EOSINOPHILS % (AUTO) 3.2 % (0-6); HEMATOCRIT 31.2 % (36.0-47.0); HEMOGLOBIN 10.4 g/dL (12.0-15.5); LYMPHOCYTES % (AUTO) 26.2 % (13-45); MEAN CORPUSCULAR HEMOGLOBIN 29.6 pg (27.0-33.4); MEAN CORPUSCULAR HGB CONC 33.5 g/dL (32.0-36.0); MEAN CORPUSCULAR VOLUME 89 fl (80-97); MONOCYTES % (AUTO) 9.5 % (3-13); RED BLOOD COUNT 3.52 10^6/uL (3.72-5.28); RED CELL DISTRIBUTION WIDTH 14.5 % (11.5-14.0); SEGMENTED NEUTROPHILS % (AUTO) 60.7 % (42-78); WHITE BLOOD COUNT 13.6 10^3/uL (4.0-10.5)
[2016-06-01 05:44] LABS: ANION GAP 8 (5-19); BLOOD UREA NITROGEN 35 mg/dL (7-20); CALCIUM 7.6 mg/dL (8.4-10.2); CARBON DIOXIDE 29 mmol/L (22-30); CHLORIDE 100 mmol/L (98-107); CREATININE RESULT 0.91 mg/dL (0.52-1.25); GLUCOSE 98 mg/dL (75-110); POTASSIUM 3.9 mmol/L (3.6-5.0); SODIUM 137.3 mmol/L (137-145)
[2016-06-01] MEDS: HEPARIN SOD (PORCINE) 5,000 UNIT/ML 1 ML SYRINGE SUBCUT SCH ×2 (06:37→16:22)
[2016-06-01] MEDS ORDERED: DOXYCYCLINE HYCLATE 100 MG TABLET PO SCH (10:00)
[2016-06-01] MEDS: LACTOBACILLUS ACIDOPHILUS 250 MG TAB NG SCH ×2 (12:01→18:52)
[2016-06-01] MEDS: SERTRALINE HCL 50 MG TABLET NG SCH (12:01)
[2016-06-01] MEDS: METOPROLOL TARTRATE 25 MG TABLET NG SCH (12:02)
[2016-06-01] MEDS: AMLODIPINE BESYLATE 10 MG TABLET NG SCH (12:02)
[2016-06-01] MEDS: LOSARTAN POTASSIUM 25 MG TABLET NG SCH (12:03)
[2016-06-01] MEDS: DOCUSATE SODIUM 100 MG CAPSULE PO SCH ×2 (12:03→18:53)
[2016-06-01] MEDS: LIDOCAINE 5% (700 MG) TRANSDERMAL ADH..PATCH TOP SCH (12:04)
[2016-06-01 12:46] VITALS: BP 113/71
--- NOTE | 2016-06-01 13:28 | PDOC TRANSFER SUMMARY ---
General - Admit/Disc Date/PCP Admission Date/Primary Care Provider: 05/21/16 13:12 SAMAN LEBLANC, Discharge Date: 06/01/16 - Discharge Diagnosis (1) Displaced fracture of right femoral neck Is this a current diagnosis for this admission?: Yes (2) Sepsis Is this a current diagnosis for this admission?: Yes (3) UTI (urinary tract infection) Is this a current diagnosis for this admission?: Yes (4) Acute blood loss as cause of postoperative anemia Is this a current diagnosis for this admission?: Yes (5) Acute kidney injury superimposed on chronic kidney disease Is this a current diagnosis for this admission?: Yes (6) Hypothyroid Is this a current diagnosis for this admission?: Yes (7) Dementia Is this a current diagnosis for this admission?: Yes (8) Essential hypertension Is this a current diagnosis for this admission?: Yes - Additional Information Resuscitation Status: Full Code Discharge Diet: Regular Discharge Activity: Activity As Tolerated Home Medications: Levothyroxine Sodium [Synthroid 0.15 mg Tablet] 150 mcg PO DAILY@1600 05/21/16 Lidocaine [Lidoderm 5% (700 mg) Transdermal Patch] 1 patch TD DAILY 05/21/16 Rivastigmine [Exelon] 13.3 mg TD DAILY 05/21/16 Sertraline HCl [Zoloft] 100 mg PO BID 05/21/16 Acetaminophen [Tylenol Soln 325 mg/10.15 ml Udcup] 650 mg NG Q4HP PRN udc 06/01 Amlodipine Besylate [Norvasc 10 mg Tablet] 10 mg NG DAILY tablet 06/01/16 Docusate Sodium [Colace 100 mg Capsule] 100 mg PO BID capsule 06/01/16 Doxycycline Hyclate [Vibramycin 100 mg Tablet] 100 mg PO Q12 5 Days 06/01/16 Levothyroxine Sodium [Synthroid 0.15 mg Tablet] 0.15 mg NG DAILY@1600 tablet Lorazepam [Ativan 0.5 mg Tablet] 0.25 mg NG QHS PRN #10 tablet 06/01/16 Losartan Potassium [Cozaar 25 mg Tablet] 25 mg NG Q12 tablet 06/01/16 Oxycodone HCl [Oxy-Ir 5 mg Tablet] 2.5 mg NG Q6HP PRN #10 tablet 06/01/16 Simvastatin [Zocor 40 mg Tablet] 40 mg NG QHS tablet 06/01/16 History of Present Illness Admission Date/PCP: 05/21/16 13:12 SAMAN LEBLANC, Patient complains of: Right hip pain History of Present Illness: LESTER NEFF is an 81 year old female who fell at home last night returning from the bathroom. She denies dizziness or fainting. She apparently tripped over a chair. She suffered immediate pain to the right hip area. EMS was called but as they did not to see a lower extremity deformity, they did not bring her to the ED. She presents now several hours later because of persistent pain and inability to ambulate. X-rays show an acute right femoral neck fracture. Hospital Course Hospital Course: Patient was admitted for right femoral neck fracture. She underwent ORIF Dr. Cowan of orthopedics. She has been evaluated by physical therapy and needs ongoing rehabilitation. She is transferred to [facility]. Patient had acute blood loss anemia postoperatively requiring transfusion 5 units PRBC. Blood count is now stable. Patient had Escherichia coli urinary tract infection and completed 5 days of ertapenem. She has 5 more days of oral antibiotics left at time of discharge. Physical Exam Vital Signs: Temp Pulse Resp BP Pulse Ox 98.0 F 90 16 113/71 98 06/01/16 12:02 06/01/16 12:02 06/01/16 12:02 06/01/16 12:02 06/01/16 12:02 Intake & Output 05/31/16 06/01/16 06/02/16 06:59 06:59 06:59 Intake Total 728 652 Balance 728 652 Weight 89.1 kg 87.6 kg GENERAL: No acute distress HEENT: Conjunctiva clear, nonicteric, moist mucous membranes, no JVD, midline trachea RESPIRATORY: Clear to auscultation bilaterally, no wheezes, no rhonchi CARDIAC: Regular rate and rhythm, no murmurs/gallops/rubs ABDOMEN: Soft, nondistended, nontender, positive bowel sounds, no rebound, no guarding EXTREMETIES: No edema, cyanosis, clubbing NEUROLOGIC: Alert, oriented to person/place/time, CN's grossly intact, no focal deficits SKIN: No rash, wounds PSYCH: Normal mood, normal affect Results Laboratory Results: 06/01/16 04:50 06/01/16 04:50 06/01/16 06/01/16 04:50 04:50 WBC 13.6 H RBC 3.52 L Hgb 10.4 L Hct 31.2 L MCV 89 MCH 29.6 MCHC 33.5 RDW 14.5 H Plt Count 224 Seg Neutrophils % 60.7 Lymphocytes % 26.2 Monocytes % 9.5 Eosinophils % 3.2 Basophils % 0.4 Absolute Neutrophils 8.3 H Absolute Lymphocytes 3.6 Absolute Monocytes 1.3 Absolute Eosinophils 0.4 Absolute Basophils 0.1 Sodium 137.3 Potassium 3.9 Chloride 100 Carbon Dioxide 29 Anion Gap 8 BUN 35 H Creatinine 0.91 Est GFR ( Amer) > 60 Est GFR (Non-Af Amer) 59 L Glucose 98 Calcium 7.6 L Impressions: Abdomen/Pelvis CT 05/21/16 12:05 IMPRESSION: 1. Right femoral neck fracture. 2. Nonobstructing renal calculi. Fluoroscopy 05/22/16 00:00 IMPRESSION: Please see combined report for performance of procedure and radiologic supervision and interpretation. Hip/Pelvis X-Ray 05/22/16 12:12 IMPRESSION: SATISFACTORY POSTOPERATIVE right HIP. Femur X-Ray 05/22/16 12:55 IMPRESSION: Status post right total hip replacement is noted above. An oblique lucency is identified within the cortex of the femur just proximal to the distal end of the femoral component of the hip prosthesis which has the appearance of a nondisplaced fracture line. Clinical correlation is recommended. Other findings as noted above. KUB X-Ray 05/25/16 00:00 IMPRESSION: No significant changes from prior study. Renal Ultrasound 05/25/16 00:00 IMPRESSION: Right nephrolithiasis. Bilateral renal atrophy. Chest X-Ray 05/29/16 06:00 IMPRESSION: No acute findings. Nasogastric tube, right subclavian line in good positioning Transfer Plan - Time Spent with Patient Time spent with patient: Greater than 30 Minutes
[2016-06-01] MEDS: LEVOTHYROXINE SODIUM 0.15 MG TABLET NG SCH (16:21)
--- NOTE | 2016-06-01 19:05 | PDOC PROGRESS REPORT ---
Subjective Progress Note for:: 06/01/16 Subjective:: Patient seen and evaluated this evening. Doing much better. Sitting up has been more mobile according to nursing staff and family. Denies fever chills or sweats. Physical Exam Vital Signs: Temp Pulse Resp BP Pulse Ox 98.0 F 90 16 113/71 98 06/01/16 12:02 06/01/16 12:02 06/01/16 12:02 06/01/16 12:02 06/01/16 12:02 Intake & Output 05/31/16 06/01/16 06/02/16 06:59 06:59 06:59 Intake Total 728 652 60 Balance 728 652 60 Weight 89.1 kg 87.6 kg Musculoskeletal exam: PRESENT: other - Right lower extremity dressing clean/dry/ intact minimal drainage according to nursing staff. No erythema around the incision site. Minimal thigh swelling. Intact plantar flexion/dorsiflexion. Results Laboratory Results: 06/01/16 04:50 06/01/16 04:50 06/01/16 06/01/16 04:50 04:50 WBC 13.6 H RBC 3.52 L Hgb 10.4 L Hct 31.2 L MCV 89 MCH 29.6 MCHC 33.5 RDW 14.5 H Plt Count 224 Seg Neutrophils % 60.7 Lymphocytes % 26.2 Monocytes % 9.5 Eosinophils % 3.2 Basophils % 0.4 Absolute Neutrophils 8.3 H Absolute Lymphocytes 3.6 Absolute Monocytes 1.3 Absolute Eosinophils 0.4 Absolute Basophils 0.1 Sodium 137.3 Potassium 3.9 Chloride 100 Carbon Dioxide 29 Anion Gap 8 BUN 35 H Creatinine 0.91 Est GFR ( Amer) > 60 Est GFR (Non-Af Amer) 59 L Glucose 98 Calcium 7.6 L Impressions: Abdomen/Pelvis CT 05/21/16 12:05 IMPRESSION: 1. Right femoral neck fracture. 2. Nonobstructing renal calculi. Fluoroscopy 05/22/16 00:00 IMPRESSION: Please see combined report for performance of procedure and radiologic supervision and interpretation. Hip/Pelvis X-Ray 05/22/16 12:12 IMPRESSION: SATISFACTORY POSTOPERATIVE right HIP. Femur X-Ray 05/22/16 12:55 IMPRESSION: Status post right total hip replacement is noted above. An oblique lucency is identified within the cortex of the femur just proximal to the distal end of the femoral component of the hip prosthesis which has the appearance of a nondisplaced fracture line. Clinical correlation is recommended. Other findings as noted above. KUB X-Ray 05/25/16 00:00 IMPRESSION: No significant changes from prior study. Renal Ultrasound 05/25/16 00:00 IMPRESSION: Right nephrolithiasis. Bilateral renal atrophy. Chest X-Ray 05/29/16 06:00 IMPRESSION: No acute findings. Nasogastric tube, right subclavian line in good positioning Assessment & Plan - Diagnosis (1) Displaced fracture of right femoral neck Is this a current diagnosis for this admission?: YesPlan: Status post right hip hemiarthroplasty ORIF femur #1 physical therapy with hip precautions #2 pain control #3 mechanical prophylaxis, pharmacologic prophylaxis for DVT held given anemia. #4 discharge to long term facility today will follow-up with me in 7-14 days.
== END 2016-06-01 20:13 | DRG 469 ==
LOC: ER 11:23 → EH 13:12 → UNDOADMIN 13:42 → EH 13:42 → 4N 14:30 → ICU 05-22 17:21 → 3W 05-26 18:55
PROVIDERS: ADMIT Internal Medicine; ATTEND Internal Medicine
PROC: 0QS804Z Reposition Right Femoral Shaft with Internal Fixation Device, Open Approach (ICD-10-PCS; 2016-05-22)
PROC: 30233N1 Transfusion of Nonautologous Red Blood Cells into Peripheral Vein, Percutaneous Approach (ICD-10-PCS; 2016-05-22)
PROC: 02HV33Z Insertion of Infusion Device into Superior Vena Cava, Percutaneous Approach (ICD-10-PCS; 2016-05-22)
PROC: 0SRR01A Replacement of Right Hip Joint, Femoral Surface with Metal Synthetic Substitute, Uncemented, Open Approach (ICD-10-PCS; principal; 2016-05-22 08:00)
DX: S72.001A Fracture of unspecified part of neck of right femur, initial encounter for closed fracture (principal); A41.51 Sepsis due to Escherichia coli [E. coli]; R65.21 Severe sepsis with septic shock; G93.41 Metabolic encephalopathy; N39.0 Urinary tract infection, site not specified; D62 Acute posthemorrhagic anemia; N17.9 Acute kidney failure, unspecified; K57.92 Diverticulitis of intestine, part unspecified, without perforation or abscess without bleeding; E46 Unspecified protein-calorie malnutrition; M96.661 Fracture of femur following insertion of orthopedic implant, joint prosthesis, or bone plate, right leg; E78.00 Pure hypercholesterolemia, unspecified; I10 Essential (primary) hypertension; R01.1 Cardiac murmur, unspecified; E03.9 Hypothyroidism, unspecified; K21.9 Gastro-esophageal reflux disease without esophagitis; K44.9 Diaphragmatic hernia without obstruction or gangrene; M19.90 Unspecified osteoarthritis, unspecified site; F03.90 Unspecified dementia, unspecified severity, without behavioral disturbance, psychotic disturbance, mood disturbance, and anxiety; F32.9 Major depressive disorder, single episode, unspecified; Z88.6 Allergy status to analgesic agent; Z66 Do not resuscitate; I12.9 Hypertensive chronic kidney disease with stage 1 through stage 4 chronic kidney disease, or unspecified chronic kidney disease; N18.3 Chronic kidney disease, stage 3 (moderate); Z79.899 Other long term (current) drug therapy; W01.0XXA Fall on same level from slipping, tripping and stumbling without subsequent striking against object, initial encounter; Y92.009 Unspecified place in unspecified non-institutional (private) residence as the place of occurrence of the external cause; N20.0 Calculus of kidney; F17.210 Nicotine dependence, cigarettes, uncomplicated; I95.81 Postprocedural hypotension; E78.5 Hyperlipidemia, unspecified; G25.0 Essential tremor; M85.88 Other specified disorders of bone density and structure, other site; K52.9 Noninfective gastroenteritis and colitis, unspecified; D69.6 Thrombocytopenia, unspecified; Z68.37 Body mass index [BMI] 37.0-37.9, adult; E66.01 Morbid (severe) obesity due to excess calories; E86.0 Dehydration; Z91.041 Radiographic dye allergy status; Z86.73 Personal history of transient ischemic attack (TIA), and cerebral infarction without residual deficits; Z87.442 Personal history of urinary calculi; Z90.49 Acquired absence of other specified parts of digestive tract; Z90.710 Acquired absence of both cervix and uterus; Z96.642 Presence of left artificial hip joint; Z88.0 Allergy status to penicillin; Z79.82 Long term (current) use of aspirin; Z82.49 Family history of ischemic heart disease and other diseases of the circulatory system; Y65.8 Other specified misadventures during surgical and medical care; Y79.2 Prosthetic and other implants, materials and accessory orthopedic devices associated with adverse incidents; Y92.234 Operating room of hospital as the place of occurrence of the external cause
CPT/HCPCS: 01210; 36415; 36430; 71010; 74000; 74176; 76770; 80048; 80053; 80074; 81001; 82040; 82272; 83735; 84100; 84443; 85025; 85027; 85362; 85384; 85610; 85730; 86022; 86850; 86900; 86901; 86920; 87040; 87086; 87088; 87186; 88304; 88311; 93005; 93010; 94799; 96374; 99285; C1751; C9290; G8978-GP; G8979-GP; G8987-GO; G8988-GO; G8989-GO; G8996-GN; G8997-GN; J0131; J0690; J1170; J1335; J1644; J1940; J1956; J2250; J2704; J3370; J3430; J3475; J3490; J7030; J7060; J7120; P9016; P9047; S0164

== ENCOUNTER 2016-12-02 21:15 | Inpatient (IN) | payer MEDICARE, OTHER ==
[2016-12-02] MEDS ORDERED: AZITHROMYCIN INJ 500 MG VIAL IV ONE (21:29)
[2016-12-02] MEDS ORDERED: CEFTRIAXONE 1 GM/D5W RTU 1 GM/50 ML RTUPB IV ONE (21:29)
[2016-12-02] MEDS: NORMAL SALINE 1000 ML 1,000 ML IV PRN ×2 (21:53→21:54)
[2016-12-02 21:56] LABS: ABSOLUTE LYMPHOCYTES (AUTO) 0.8 10^3/uL (0.5-4.7); ABSOLUTE MONOCYTES (AUTO) 0.9 10^3/uL (0.1-1.4); ABSOLUTE NEUT (AUTO) 12.9 10^3/uL (1.7-8.2); BASOPHILS % (AUTO) 0.2 % (0-2); HEMATOCRIT 33.4 % (36.0-47.0); HEMOGLOBIN 10.8 g/dL (12.0-15.5); LYMPHOCYTES % (AUTO) 5.2 % (13-45); MEAN CORPUSCULAR HEMOGLOBIN 31.3 pg (27.0-33.4); MEAN CORPUSCULAR HGB CONC 32.3 g/dL (32.0-36.0); MEAN CORPUSCULAR VOLUME 97 fl (80-97); MONOCYTES % (AUTO) 6.1 % (3-13); RED BLOOD COUNT 3.45 10^6/uL (3.72-5.28); RED CELL DISTRIBUTION WIDTH 17.6 % (11.5-14.0); SEGMENTED NEUTROPHILS % (AUTO) 88.5 % (42-78); WHITE BLOOD COUNT 14.6 10^3/uL (4.0-10.5)
[2016-12-02 22:05] LABS: VENOUS BLOOD BASE EXCESS 4.8 mmol/L; VENOUS BLOOD HCO3 32.7 mmol/L (20-32); VENOUS BLOOD PH 7.32 (7.30-7.42)
--- NOTE | 2016-12-02 22:06 | ER Document Report ---
ED Respiratory Problem <LUIS FELIPESANA CANO - Last Filed: 12/02/16 23:55> - General Cannot obtain history due to: Altered mental status TRAVEL OUTSIDE OF THE [place] IN LAST 30 DAYS: No <ELE AMTA - Last Filed: 12/03/16 00:35> - General Chief Complaint: Shortness Of Breath Stated Complaint: DIFFICULTY BREATHING Time Seen by Provider: 12/02/16 21:27 Notes: The patient is an 81-year-old female, past medical history COPD, CHF, end-stage dementia (on hospice), presents with increasing shortness of breath and worsening mental status over the past day. Patient's 2 daughters are in the ER with the hospice nurse and said that the patient was started on Rocephin yesterday for pneumonia. The daughters called 911 because she was gurgling. Her primary care physician is Dr. Mosley and he is aware that patient is in the emergency room. Patient placed on CPAP by EMS due to hypoxia to 80%. Unable to provide any additional history. (ELE MATA) - Related Data Allergies/Adverse Reactions: morphine [Morphine] Allergy (Severe, Verified 04/13/16 08:41) swelling Penicillins Allergy (Severe, Verified 05/21/16 19:43) Swelling of Throat Iodinated Contrast- Oral and IV Dye [IV Dye, Iodine Containing] Allergy ( Intermediate, Verified 04/13/16 08:41) RASH TO FACE, DIFFICULTY BREATHING Past Medical History - General Information source: Relative, POA - Power of Audio Visual Arts Director - Daughter, Emergency Med Personnel Cannot obtain history due to: Altered mental status - Social History Smoking Status: Former Smoker Family History: CAD, Hypertension - Past Medical History Cardiac Medical History: Reports: Hx Hypercholesterolemia, Hx Hypertension, Hx Heart Murmur Denies: Hx Coronary Artery Disease, Hx Heart Attack Pulmonary Medical History: Reports: Hx Tuberculosis - hypo Denies: Hx Asthma, Hx Bronchitis, Hx COPD, Hx Pneumonia Neurological Medical History: Reports: Hx Cerebrovascular Accident. Denies: Hx Seizures Endocrine Medical History: Reports: Hx Hypothyroidism Renal/ Medical History: Reports: Hx Kidney Stones. Denies: Hx Peritoneal Dialysis GI Medical History: Reports: Hx Diverticulitis, Hx Gastroesophageal Reflux Disease, Hx Hiatal Hernia Musculoskeltal Medical History: Reports Hx Arthritis Psychiatric Medical History: Reports: Hx Dementia, Hx Depression Past Surgical History: Reports: Hx Abdominal Surgery, Hx Appendectomy, Hx Bowel Surgery, Hx Section, Hx Cholecystectomy, Hx Colostomy - then reversed, Hx Hysterectomy, Hx Orthopedic Surgery, Hx Tubal Ligation. Denies: Hx Pacemaker - Immunizations Hx Diphtheria, Pertussis, Tetanus Vaccination: Yes Hx Pneumococcal Vaccination: 12/14/06 <ELE AMTA - Last Filed: 12/03/16 00:35> Review of Systems - Review of Systems -: Yes ROS unobtainable due to patient's medical condition <ELE MATA - Last Filed: 12/03/16 00:35> Physical Exam <SANA WARNER - Last Filed: 12/02/16 23:55> <ELE MATA - Last Filed: 12/03/16 00:35> - Vital signs Vitals: Resp Pulse Ox 28 H 95 12/02/16 21:23 12/02/16 21:23 - Notes Notes: PHYSICAL EXAMINATION: GENERAL: Ill-appearing. HEAD: Atraumatic, normocephalic. EYES: Pupils equal round and reactive to light, sclera anicteric, conjunctiva are normal. ENT: nares patent, oropharynx clear without exudates. Moist mucous membranes. NECK: Normal range of motion, supple without lymphadenopathy LUNGS: Tachypnea, diffuse crackles HEART: Tachycardia, irregular rhythm ABDOMEN: Soft, nontender, normoactive bowel sounds. No guarding, no rebound. No masses appreciated. EXTREMITIES: 2+ pitting edema in B/L lower extremities NEUROLOGICAL: Somnolent. Does not follow commands SKIN: Warm, Dry, normal turgor, no rashes or lesions noted. (ELE MATA) Course - Laboratory Result Diagrams: 12/02/16 21:25 12/02/16 22:55 <SANA WARNER - Last Filed: 12/02/16 23:55> - Laboratory Result Diagrams: 12/02/16 21:25 12/02/16 22:55 - Diagnostic Test Radiology reviewed: Image reviewed, Reports reviewed - EKG Interpretation by Me EKG shows normal: [place], Intervals, QRS Complexes, ST-T Waves Rate: Tachycardia Rhythm: A.Fib [place]/QRS: RBBB When compared to previous EKG there are: No significant change <ELE MATA - Last Filed: 12/03/16 00:35> - Re-evaluation Re-evalutation: Had a lengthy discussion with 2 daughters and hospice nurse at bedside. Patient is confirmed to be a DNR with DNR form at bedside, but the POA said that if the patient needs to be intubated, that is what she would want. Spoke to patient that due to her advanced dementia and illness that there is a possibility that she will not come off of the breathing tube. They understand and said that there are multiple family members outside the state that are on their way to visit and the daughters would like to keep her alive for the family to be able to say their good-byes. Patient with a left lower lobe pneumonia on chest x-ray with leukocytosis and tachycardia. Her blood pressures have remained normal and her lactate is 1.7. Pt is in A fib w/ RVR. She has a history of A fib. CAP antibiotics started, since she has not been hospitalized recently. Patient intubated for airway protection due to worsening mental status on BiPap. Hospice revoked their hospice contract with patient since she will now be intubated. 12/03/16 00:[address] Garcia and will admit patient as Inpatient to ICU. (ELE MATA) - Vital Signs Vital signs: Temp Pulse Resp BP Pulse Ox 28 H 98 12/02/16 21:23 12/02/16 23:30 - Laboratory Laboratory results interpreted by me: 12/02/16 12/02/16 12/02/16 21:25 21:40 22:55 WBC 14.6 H RBC 3.45 L Hgb 10.8 L Hct 33.4 L RDW 17.6 H Plt Count 115 L Seg Neutrophils % 88.5 H Lymphocytes % 5.2 L Absolute Neutrophils 12.9 H VBG pCO2 65.3 H* VBG HCO3 32.7 H Potassium 5.2 H Carbon Dioxide 31 H BUN 54 H Creatinine 1.83 H Est GFR ( Amer) 32 L Est GFR (Non-Af Amer) 26 L Glucose 152 H Direct Bilirubin 0.7 H AST 38 H Alkaline Phosphatase 136 H Creatine Kinase 24 L Urine Protein Urine Blood 12/02/16 23:55 WBC RBC Hgb Hct RDW Plt Count Seg Neutrophils % Lymphocytes % Absolute Neutrophils VBG pCO2 VBG HCO3 Potassium Carbon Dioxide BUN Creatinine Est GFR ( Amer) Est GFR (Non-Af Amer) Glucose Direct Bilirubin AST Alkaline Phosphatase Creatine Kinase Urine Protein 100 H Urine Blood LARGE H - Diagnostic Test Radiology results interpreted by me: CXR: left lower lobe consolidation (ELE MATA) Procedures - Intubation Orotracheal Airway evaluation: Normal anatomy Mallampati Classification: Class 2 Medications: Etomidate, Other - Rocuronium Intubation method: Orotracheal Blade type: [place] Blade size: 4 Equipment used: Glidescope ETT size: 7.5 ETT secured at: Gums ETT secured at (cm): 23 Breath Sounds after Intubation: Equal End tidal CO2 confirmed: Yes Post Intubation Xray: Yes Intubation Complications: No complications <SANA WARNER - Last Filed: 12/02/16 23:55> <ELE MATA - Last Filed: 12/03/16 00:35> - Intubation Orotracheal Notes: Performed with one attempt with Dr. Mata at bedside. (SANA WARNER) Critical Care Note - Critical Care Note Total time excluding time spent on procedures (mins): 34 <ELE MATA - Last Filed: 12/03/16 00:35> Discharge <SANA WARNER - Last Filed: 12/02/16 23:55> - Discharge Admitting Provider: [facility] Admitted: ICU <ELE MATA - Last Filed: 12/03/16 00:35> - Discharge Clinical Impression: Acute respiratory failure with hypoxia Pneumonia Qualifiers: Pneumonia type: due to unspecified organism Laterality: left Lung location: lower lobe of lung Qualified Code(s): J18.1 - Lobar pneumonia, unspecified organism Sepsis Qualifiers: Sepsis type: sepsis due to unspecified organism Qualified Code(s): A41.9 - Sepsis, unspecified organism Condition: Critical Disposition: ADMITTED INPATIENT
[2016-12-02 22:08] LABS: VENOUS BLOOD PCO2 65.3 mmHg (35-63)
--- NOTE | 2016-12-02 22:08 | RADIOLOGY REPORT (SQ) ---
EXAM DESCRIPTION: CHEST SINGLE VIEW COMPLETED DATE/TIME: 12/02/2016 9:56 pm REASON FOR STUDY: hypoxia COMPARISON: 05/29/2016 EXAM PARAMETERS: NUMBER OF VIEWS: One view. TECHNIQUE: Single frontal radiographic view of the chest acquired. RADIATION DOSE: NA LIMITATIONS: None. FINDINGS: LUNGS AND PLEURA: Left lower lobe consolidation small effusion. Mild increased interstiti al and alveolar opacities bilaterally. No pneumothorax identified. MEDIASTINUM AND HILAR STRUCTURES: Stable. HEART AND VASCULAR STRUCTURES: Cardiomegaly. Increased vascularity. BONES: No acute findings. HARDWARE: None in the chest. OTHER: No other significant finding. IMPRESSION: Left lower lobe consolidation small effusion. Mild increased interstitial and alveolar opacities bilaterally. Cardiomegaly. Increased vascularity. TECHNICAL DOCUMENTATION: JOB ID: [id number]
[2016-12-02] MEDS ORDERED: ETOMIDATE INJ/PF 20 MG/10 ML SDV IV ONE ×2 (23:14→23:26)
[2016-12-02] MEDS ORDERED: PROPOFOL 100 ML IV ONE (23:19)
[2016-12-02 23:22] LABS: ALANINE AMINOTRANSFERASE 27 U/L (9-52); ALBUMIN 3.6 g/dL (3.5-5.0); ALKALINE PHOSPHATASE 136 U/L (38-126); ANION GAP 11 (5-19); ASPARTATE AMINO TRANSFERASE 38 U/L (14-36); BILIRUBIN,DIRECT 0.7 mg/dL (0.0-0.4); BILIRUBIN,TOTAL 0.7 mg/dL (0.2-1.3); BLOOD UREA NITROGEN 54 mg/dL (7-20); CALCIUM 9.4 mg/dL (8.4-10.2); CARBON DIOXIDE 31 mmol/L (22-30); CHLORIDE 99 mmol/L (98-107); CREATINE KINASE 24 U/L (30-135); CREATININE RESULT 1.83 mg/dL (0.52-1.25); GLUCOSE 152 mg/dL (75-110); POTASSIUM 5.2 mmol/L (3.6-5.0); SODIUM 141.1 mmol/L (137-145)
[2016-12-02] MEDS ORDERED: PROPOFOL 100 ML IV PRN (23:26)
[2016-12-02] MEDS ORDERED: ROCURONIUM BROMIDE INJ 50 MG/5 ML VIAL IV ONE (23:26)
[2016-12-02] MEDS ORDERED: FENTANYL CITRATE INJ/PF 100 MCG/2 ML AMPUL IV ONE (23:40)
--- NOTE | 2016-12-02 23:57 | RADIOLOGY REPORT (SQ) ---
EXAM DESCRIPTION: CHEST SINGLE VIEW COMPLETED DATE/TIME: 12/02/2016 11:46 pm REASON FOR STUDY: intubated COMPARISON: Earlier exam same date EXAM PARAMETERS: NUMBER OF VIEWS: One view. TECHNIQUE: Single frontal radiographic view of the chest acquired. RADIATION DOSE: NA LIMITATIONS: None. FINDINGS: LUNGS AND PLEURA: Similar left basilar consolidation -effusion. Mild increase interstitia l and alveolar opacities bilaterally. No pneumothorax. MEDIASTINUM AND HILAR STRUCTURES: Stable. HEART AND VASCULAR STRUCTURES: Stable. BONES: No acute findings. HARDWARE: Endotracheal tube is present with tip overlying the lower 3rd of the trachea, approximately 3.5 cm above the level of the akshat. Nasogastric catheter is present with tip overlying the body o f the stomach. OTHER: No other significant finding. IMPRESSION: Endotracheal tube is present with tip overlying the lower 3rd of the trachea, approximat shanelle 3.5 cm above the level of the akshat. Similar left basilar consolidation -effusion. Mild increas e interstitial and alveolar opacities bilaterally. TECHNICAL DOCUMENTATION: JOB ID: [id number]
[2016-12-03 00:25] LABS: AMORPHOUS SEDIMENT,URINE TRACE /HPF; APPEARANCE,URINE CLOUDY; BILIRUBIN,URINE NEGATIVE (NEGATIVE); GLUCOSE, URINE NEGATIVE (NEGATIVE); KETONES,URINE NEGATIVE (NEGATIVE); LEUKOCYTE ESTERASE,URINE NEGATIVE (NEGATIVE); NITRITE,URINE NEGATIVE (NEGATIVE); PROTEIN,URINE 100 mg/dL (NEGATIVE); URINE SPECIFIC GRAVITY 1.012; UROBILINOGEN,URINE NEGATIVE mg/dL (<2.0)
[2016-12-03 03:07] LABS: ADD ON TESTING BLD IN LAB ACKNOWLEDGE
[2016-12-03 03:10] LABS: ARTERIAL BLOOD BASE EXCESS 5.1 mmol/L; ARTERIAL BLOOD O2 SATURATION 95.7 % (94-98)
[2016-12-03 03:20] LABS: MAGNESIUM 2.3 mg/dL (1.6-2.3)
[2016-12-03] MEDS ORDERED: ALBUTEROL SULFATE 0.083% NEB 2.5 MG/3 ML AMPUL NEB PRN (03:53)
[2016-12-03] MEDS ORDERED: NORMAL SALINE 1000 ML 1,000 ML IV PRN ×3 (03:53→08:05)
[2016-12-03] MEDS ORDERED: INSULIN LISPRO 100 UNIT/ML 3 ML VIAL SUBCUT PRN (03:57)
[2016-12-03] MEDS ORDERED: GLUCAGON,HUMAN RECOMB 1 MG INJ IM PRN (03:57)
[2016-12-03] MEDS ORDERED: DEXTROSE 50%-WATER 25 GM/50 ML DISP.SYRIN IV PRN ×2 (03:57)
[2016-12-03] MEDS ORDERED: DEXTROSE 40% GEL 15 GM TUBE PO PRN ×2 (03:57)
[2016-12-03] MEDS ORDERED: ACETAMINOPHEN SOLN 325 MG/10.15 ML UDCUP NG PRN (04:03)
[2016-12-03] MEDS ORDERED: PROMETHAZINE HCL 25 MG SUPP.RECT PR PRN ×2 (04:04→08:17)
[2016-12-03] MEDS ORDERED: PROPOFOL 100 ML IV PRN (04:06)
[2016-12-03] MEDS ORDERED: VANCOMYCIN HCL 0 MG in DEXTROSE 5%-WATER 250 ML IV NR (04:15)
[2016-12-03] MEDS ORDERED: VANCOMYCIN HCL INJ 1000 MG VIAL IV PRN (04:20)
[2016-12-03] MEDS ORDERED: VANCOMYCIN HCL INJ 500 MG VIAL IV PRN (04:20)
[2016-12-03 05:00] LABS: ABSOLUTE LYMPHOCYTES (AUTO) 0.8 10^3/uL (0.5-4.7); ABSOLUTE MONOCYTES (AUTO) 0.7 10^3/uL (0.1-1.4); ABSOLUTE NEUT (AUTO) 10.9 10^3/uL (1.7-8.2); BASOPHILS % (AUTO) 0.1 % (0-2); HEMATOCRIT 31.6 % (36.0-47.0); HGB HCT DIFFERENCE -1.6; LYMPHOCYTES % (AUTO) 6.7 % (13-45); MEAN CORPUSCULAR HEMOGLOBIN 30.7 pg (27.0-33.4); MEAN CORPUSCULAR HGB CONC 31.6 g/dL (32.0-36.0); MEAN CORPUSCULAR VOLUME 97 fl (80-97); MONOCYTES % (AUTO) 5.3 % (3-13); RED BLOOD COUNT 3.26 10^6/uL (3.72-5.28); RED CELL DISTRIBUTION WIDTH 17.5 % (11.5-14.0); SEGMENTED NEUTROPHILS % (AUTO) 87.9 % (42-78); WHITE BLOOD COUNT 12.4 10^3/uL (4.0-10.5)
[2016-12-03] MEDS ORDERED: LEVOFLOXACIN 750 MG/D5W RTU 750 MG/150 ML RTUPB IV ONE (05:00)
[2016-12-03 05:12] LABS: ALANINE AMINOTRANSFERASE 22 U/L (9-52); ALKALINE PHOSPHATASE 125 U/L (38-126); ANION GAP 11 (5-19); ASPARTATE AMINO TRANSFERASE 35 U/L (14-36); BILIRUBIN,DIRECT 0.6 mg/dL (0.0-0.4); BILIRUBIN,TOTAL 0.7 mg/dL (0.2-1.3); BLOOD UREA NITROGEN 53 mg/dL (7-20); CALCIUM 9.1 mg/dL (8.4-10.2); CARBON DIOXIDE 29 mmol/L (22-30); CHLORIDE 103 mmol/L (98-107); CREATININE RESULT 1.82 mg/dL (0.52-1.25); GLUCOSE 116 mg/dL (75-110); POTASSIUM 4.8 mmol/L (3.6-5.0); SODIUM 143.1 mmol/L (137-145); TOTAL PROTEIN 7.1 g/dL (6.3-8.2)
[2016-12-03] MEDS ORDERED: VANCOMYCIN HCL 1,500 MG in DEXTROSE 5%-WATER 250 ML IV ONE (06:00)
--- NOTE | 2016-12-03 06:54 | EKG REPORT ---
SEVERITY:- ABNORMAL ECG - ATRIAL FIBRILLATION RIGHT BUNDLE BRANCH BLOCK INFEROLATERAL ST-T CHANGES NONSPECIFIC : Confirmed by: Jonah Robles MD 03-Dec-2016 06:53:43
[2016-12-03] MEDS ORDERED: DEXTROSE 5%-WATER 250 ML with NOREPINEPHRINE BITARTRATE 4 MG IV PRN ×2 (08:14)
[2016-12-03] MEDS ORDERED: MIDAZOLAM HCL 100 ML IV PRN (08:15)
[2016-12-03] MEDS ORDERED: ACETAMINOPHEN 650 MG SUPP.RECT PR PRN (08:16)
[2016-12-03 08:25] LABS: ARTERIAL BLOOD O2 SATURATION 96.5 % (94-98)
--- NOTE | 2016-12-03 08:26 | PDOC H&P ---
History of Present Illness Admission Date/PCP: 12/03/16 03:09 ISAÍAS REAL MD Patient complains of: Altered mental status, worsening shortness of breath History of Present Illness: LESTER NEFF is a 81 year old female with underlying COPD, atrial fibrillation, reported congestive heart failure, arthritis, hypothyroidism, hyperlipidemia, anxiety and depression, without suicidal or homicidal ideation, and end-stage dementia, on hospice for same, with portable DNR, brought to the emergency room for evaluation of 24 hour history of worsening of her chronic confusion along with worsening shortness of breath. Patient has been discussed with emergency room physician who evaluated the patient. Patient is intubated and sedated and is able to provide no history whatsoever in terms of acute or chronic events, review of systems, personal habits, family history, etc. 2 daughters are present at bedside. Old inpatient records are reviewed. Started yesterday on Rocephin for suspected pneumonia. Daughters called 911 because patient was "gurgling." Room air saturation of 80% upon EMS arrival; CPAP applied. Hospice nurse accompanied family to emergency room. Nurse and emergency room physician had a reportedly evans discussion with family at bedside concerning options for treatment or perhaps simply comfort care. However, family at bedside stated there were multiple family members out of state that needed to come see patient and say they are "last goodbyes." Patient was thus intubated. Daughters do state that mother does not want chest compressions. Otherwise, all resuscitative measures should be undertaken. Patient has been bedbound "for some time now," according to daughter. Hospitalized on our service May 21 - June 01 of this year with final diagnoses including displaced fracture right femoral neck and sepsis due to urinary tract infection. Surgical repair of fracture was undertaken. Discharge summary has been reviewed. Dictation via voice recognition software. Laboratory results are listed in [employer] and are reviewed. X-ray summary results are listed below, with full report(s) reviewed. . EKG reviewed and compared to prior tracing from May 26 of this year. Social history/personal habits: . Lives with family. Former smoker; currently chews tobacco. No alcohol or illicit drug use. Allergies/adverse reactions are listed in [employer] and are reviewed. No problems with Rocephin. Home medications initially autopopulated into [employer] may not accurately reflect patient's true medications, dosages, and/or frequencies. commercial hvac service technician to reconcile medications. Unfortunately, patient not able to provide any information related to medications/dosages/frequencies. REVIEW OF SYSTEMS: See history and present illness. No further information available this point in time. PHYSICAL EXAMINATION: 5 feet 5 inches tall. 88 kg. BMI 32.3 kg/m. Pulse 129 and slightly irregular. 96% saturation on SIMV volume control, 45% FiO2, PEEP of 5 pressure support 10 rate of 12. Tidal volume 450. Temperature 97.9. Somewhat obese otherwise well-developed elderly female appearing approximately her stated age. Intubated and sedated. Does not respond to name. 2 daughters are present at her side. Skin is warm and dry. No grossly obvious evidence of rash in areas of skin examined. No subcutaneous nodules palpated. Of note, daughters deny any skin breakdown. ENT: Hearing cannot be adequately evaluated due to her current status. No hartmann sign. Eyes: No scleral icterus. Pupils equal and reactive to light at 4 mm. [place] conjunctivae. No raccoon eyes. Neck is nontender to palpation. Midline trachea. No palpable thyroid nodule mass enlargement or tenderness. Lymphatic: No palpable cervical or clavicular nodes. Neck and lymphatic exams limited by patient body habitus. Psychiatric: Cannot be adequately evaluated due to her current status. Lungs: Auscultation reveals equal breath sounds bilaterally. No use of accessory respiratory muscles. Somewhat coarse breath sounds in each lower hemithorax. Cardiovascular: Heart slightly irregular rate and rhythm, without gallop murmur or rub. No carotid or abdominal aortic bruits. Very mild bilateral symmetric slightly pitting ankle and pedal edema. Faintly palpable dorsalis pedis pulses. Abdomen:soft slightly distended nontender with positive bowel sounds. Unable to adequately evaluate abdomen for masses or organomegaly due to distention. Extremities: Feet are warm and dry. No calf tenderness to compression. No grossly obvious visual evidence of calf swelling. Manipulation of lower extremities limited by what appears to be chronic stiffness at knees. Neurologic: Patellar reflexes absent. Absent Babinski. Light touch cannot be determined due to her current status. Past Medical History Cardiac Medical History: Reports: Atrial Fibrillation, Congestive Heart Failure , Hyperlipidema, Hypertension, Heart Murmur Denies: Coronary Artery Disease, DVT, Myocardial Infarction, Pulmonary Embolism Pulmonary Medical History: Denies: Asthma, Bronchitis, Chronic Obstructive Pulmonary Disease (COPD), Pneumonia EENT Medical History: Reports: Eyes - Wears glasses Denies: Ears, Throat Neurological Medical History: Reports: Ischemic CVA Denies: Hemorrhagic CVA, Seizures Endocrine Medical History: Reports: Hypothyroidism Denies: Diabetes Mellitus Type 1, Diabetes Mellitus Type 2, Hyperthyroidism Renal/ Medical History: Reports: Other - History of nephrolithiasis. GI Medical History: Reports: Diverticulitis, Gastroesophageal Reflux Disease, Hiatal Hernia Denies: Cirrhosis, Hepatitis Musculoskeltal Medical History: Reports: Arthritis Skin Medical History: Reports: None Psychiatric Medical History: Reports: Dementia, Depression, General Anxiety Disorder, Tobacco Dependency Denies: Alcohol Dependency, Substance Abuse Hematology: Reports: Anemia, Other - Easy bruising Infectious Medical History: Denies: Hepatitis B, Hepatitis C Past Surgical History Past Surgical History: Reports: Appendectomy, Section, Cholecystectomy , Colostomy - then reversed, Hysterectomy, Orthopedic Surgery, Tubal Ligation Social History Information Source: Relative - 2 daughters, Emergency Med Personnel, [facility] Lives with: Family Smoking Status: Former Smoker - Chews tobacco Frequency of Alcohol Use: None Hx Recreational Drug Use: No Drugs: None Hx Prescription Drug Abuse: No - Advance Directive Resuscitation Status: Do not perform chest compressions. Surrogate healthcare decision maker:: Daughter Adri Branch. Family History Family History: CAD, Hypertension Parental Family History Reviewed: Yes - Parents of cancer Children Family History Reviewed: Yes - Hypertension Sibling(s) Family History Reviewed.: Yes - Medication/Allergy Home Medications: Levothyroxine Sodium [Synthroid 0.15 mg Tablet] 150 mcg PO DAILY@1600 05/21/16 Lidocaine [Lidoderm 5% (700 mg) Transdermal Patch] 1 patch TD DAILY 05/21/16 Rivastigmine [Exelon] 13.3 mg TD DAILY 05/21/16 Sertraline HCl [Zoloft] 100 mg PO BID 05/21/16 Acetaminophen [Tylenol Soln 325 mg/10.15 ml Udcup] 650 mg NG Q4HP PRN udc 06/01 Amlodipine Besylate [Norvasc 10 mg Tablet] 10 mg NG DAILY tablet 06/01/16 Docusate Sodium [Colace 100 mg Capsule] 100 mg PO BID capsule 06/01/16 Doxycycline Hyclate [Vibramycin 100 mg Tablet] 100 mg PO Q12 5 Days tablet 11/10 Levothyroxine Sodium [Synthroid 0.15 mg Tablet] 0.15 mg NG DAILY@1600 tablet Lorazepam [Ativan 0.5 mg Tablet] 0.25 mg NG QHS PRN #10 tablet 06/01/16 Losartan Potassium [Cozaar 25 mg Tablet] 25 mg NG Q12 tablet 06/01/16 Oxycodone HCl [Oxy-Ir 5 mg Tablet] 2.5 mg NG Q6HP PRN #10 tablet 06/01/16 Simvastatin [Zocor 40 mg Tablet] 40 mg NG QHS tablet 06/01/16 Allergies/Adverse Reactions: morphine [Morphine] Allergy (Severe, Verified 04/13/16 08:41) swelling Penicillins Allergy (Severe, Verified 12/03/16 04:05) Swelling of Throat Iodinated Contrast- Oral and IV Dye [IV Dye, Iodine Containing] Allergy ( Intermediate, Verified 04/13/16 08:41) RASH TO FACE, DIFFICULTY BREATHING Physical Exam Vital Signs: Temp Pulse Resp BP Pulse Ox 97.7 F 138 H 14 114/70 97 12/03/16 06:01 12/03/16 03:58 12/03/16 06:01 12/03/16 06:01 12/03/16 05:44 Intake & Output 12/02/16 12/03/16 12/04/16 00:59 00:59 00:59 Weight 88 kg Results Laboratory Results: 12/03/16 04:52 12/03/16 04:52 12/03/16 12/03/16 04:52 04:52 WBC 12.4 H RBC 3.26 L Hgb 10.0 L Hct 31.6 L MCV 97 MCH 30.7 MCHC 31.6 L RDW 17.5 H Plt Count 104 L Seg Neutrophils % 87.9 H Lymphocytes % 6.7 L Monocytes % 5.3 Eosinophils % 0.0 Basophils % 0.1 Absolute Neutrophils 10.9 H Absolute Lymphocytes 0.8 Absolute Monocytes 0.7 Absolute Eosinophils 0.0 Absolute Basophils 0.0 Sodium 143.1 Potassium 4.8 Chloride 103 Carbon Dioxide 29 Anion Gap 11 BUN 53 H Creatinine 1.82 H Est GFR ( Amer) 32 L Est GFR (Non-Af Amer) 27 L Glucose 116 H Calcium 9.1 Total Bilirubin 0.7 AST 35 ALT 22 Alkaline Phosphatase 125 Total Protein 7.1 Albumin 3.0 L Impressions: Chest X-Ray 12/02/16 23:26 IMPRESSION: Endotracheal tube is present with tip overlying the lower 3rd of the trachea, approximately 3.5 cm above the level of the akshat. Similar left basilar consolidation -effusion. Mild increase interstitial and alveolar opacities bilaterally. Assessment & Plan - Diagnosis (1) Acute respiratory failure with hypoxia Is this a current diagnosis for this admission?: Yes Plan: 80 minutes critical care time (2) Acute worsening of stage 3 chronic kidney disease Is this a current diagnosis for this admission?: Yes Plan: IV fluids. Follow-up chemistry. (3) Elevated LFTs Is this a current diagnosis for this admission?: Yes Plan: Follow-up chemistry. (4) Hyperkalemia Is this a current diagnosis for this admission?: Yes Plan: Follow-up chemistry. (5) LLL pneumonia Qualifiers: Pneumonia type: due to unspecified organism Qualified Code(s): J18.1 - Lobar pneumonia, unspecified organism Is this a current diagnosis for this admission?: Yes Plan: Patient will be admitted under pneumonia protocol. Incentive spirometry twice a day. Scheduled DuoNeb's. As needed albuterol nebs. Antibiotics will consist of Rocephin, and intravenous vancomycin and Levaquin. Pharmacy to assist with dosing. Pulmonology consult. Patient is a full code, other than no chest compressions. Knee high SCDs for DVT prophylaxis; we will forego Lovenox or heparin due to her thrombocytopenia. Impression and plans were discussed with 2 daughters, both of whom concur (6) Dementia Qualifiers: Dementia type: unspecified type Dementia behavioral disturbance: without behavioral disturbance Qualified Code(s): F03.90 - Unspecified dementia without behavioral disturbance Is this a current diagnosis for this admission?: Yes (7) Hyperlipidemia Qualifiers: Hyperlipidemia type: unspecified Qualified Code(s): E78.5 - Hyperlipidemia , unspecified Is this a current diagnosis for this admission?: Yes Plan: Resume home medications as appropriate once these have been determined and reviewed. (8) Hypothyroid Qualifiers: Hypothyroidism type: unspecified Qualified Code(s): E03.9 - Hypothyroidism , unspecified Is this a current diagnosis for this admission?: Yes Plan: Resume home medications as appropriate once these have been determined and reviewed. - Time Critical Time spent with patient: 35 or more minutes Within: Other - Inpatient Certification Based on my medical assessment, after consideration of the patient's comorbidities, presenting symptoms, or acuity I expect that the services needed warrant INPATIENT care.: Yes I certify that my determination is in accordance with my understanding of Medicare's requirements for reasonable and necessary INPATIENT services [42 CFR 412.3e].: Yes Medical Necessity: Need Close Monitoring Due to Risk of Patient Decompensation, Need For IV Fluids, Need For Continuous Telemetry Monitoring, Need for Nebulizer Therapy and Monitoring of Response, Need for IV Antibiotics, Risk of Diagnosis Which Will Require Inpatient Eval/Care/Monitoring Post Hospital Care: D/C or Transfer Summary
[2016-12-03] MEDS: IPRATROPIUM/ALBUTEROL 0.5-2.5 MG/3 ML AMPUL NEB SCH ×3 (08:37→20:05)
--- NOTE | 2016-12-03 08:39 | RADIOLOGY REPORT (SQ) ---
EXAM DESCRIPTION: CHEST SINGLE VIEW COMPLETED DATE/TIME: 12/03/2016 8:25 am REASON FOR STUDY: ETT, OG placement COMPARISON: 12/02/2016. FINDINGS: Single-view chest AP portable semi-upright timed approximately 0812 hours. Appropriate endotracheal and nasogastric tubes (nasogastric tube off the inferior aspect of the radio graph). Mild haziness in the lung long with diminished aeration in the lung bases particularly. Associated pleural fluid. Probably relatively stable allowing for differences in technique. No pneumothorax. IMPRESSION: Appropriate lines and tubes. Persistent lung findings as above. TECHNICAL DOCUMENTATION: JOB ID: [id number]
--- NOTE | 2016-12-03 09:02 | PROGRESS NOTE E ---
Progress Note NAME: LESTER NEFF : 1935 AGE: 81Y DATE: 12/03/2016 ROOM: 601 SUBJECTIVE: The patient remains ventilated. The patient is unable to respond. The patient will awaken with noxious stimuli on [place], but it, for the most part, has been fairly comfortable. I have made numerous attempts to contact the family for further guidance on things. However, I have had no success with this as there is no ability to leave voicemail and the phone is just continuous to ring. The patient is tachycardic, currently afebrile with very minimal urine output. The patient's pressures, however, are mapping out sufficiently. The patient is ventilating well on 45% FiO2 and the patient has been able to respond at this time. REVIEW OF SYSTEMS: Unobtainable. MEDICATIONS: Medications have been reviewed. OBJECTIVE: GENERAL: The patient is an 81-year-old female who is intubated, sedated, unable to assess orientation. She does appear comfortable at this time. VITAL SIGNS: Temperature is 97.7, pulse 125, respirations 14, blood pressure is 114/70, oxygen saturation is 100% on 45% FiO2. SKIN: Pale and dry. No rash. She is not diaphoretic. HEENT: Pupils are reactive. Conjunctiva is pale. There is no JVP. CARDIOVASCULAR SYSTEM: Heart is irregularly irregular, tachycardic. CHEST: The patient does have bilateral rales, symmetrical, mechanical. ABDOMEN: Soft. Bowel sounds are present. EXTREMITIES: No clubbing, cyanosis, edema. All 4 extremities are warm to the touch. PSYCHIATRIC: Unable to fully assess. DIAGNOSTICS: Lab values are as follows: Hematology obtained on 12/03/2016: WBCs are 12.4, hemoglobin is 10.0, hematocrit is 31.6, platelet count is 104,000. Chemistry obtained on 12/03/2016: Sodium is 143, potassium 4.8, chloride is 103, carbon dioxide 29, BUN 53, creatinine is 1.82. Glucose 116, lactic acid is 1.7, calcium is 9.1, bilirubin is 0.7. AST 35, ALT is 22, Alk phos 125, total protein 7.1, albumin 3.0. TSH is 1.41. Chest x-ray obtained on 12/03/2016 reveals left basilar consolidation with evidence of effusion. ET tube in sufficient location. IMPRESSION AND PLAN: 1. LEFT LOWER LOBE PNEUMONIA. The patient is covered with broad-spectrum IV antibiotic coverage for now. Continue nebs and follow. 2. ACUTE HYPOXEMIC RESPIRATORY FAILURE SECONDARY TO NUMBER 1. The patient is oxygenating well. Will decrease FiO2 to 35% and follow. 3. SEPSIS SECONDARY TO NUMBER 1. The patient is currently not requiring pressors. White count has responded to antibiotics. The patient is currently afebrile, does have evidence of improvement. 4. ACUTE RENAL FAILURE. Feel this is intravascular volume depletion as the patient does sound as to have pulmonary edema, but has evidence of end organ dysfunction. Will hydrate the patient and follow. 5. ATRIAL FIBRILLATION. The patient does have a history of this. Uncertain if it is paroxysmal or chronic. However, will resume the patient's home medications if the patient has been taking any, and hopefully rate will improve with hydration. 6. HYPERKALEMIA. This is mild and corrected with hydration. 7. END-STAGE DEMENTIA. The patient was on hospice and this has been rescinded by family to have the patient intubated so other family might travel here to say goodbye. I have made numerous contacts this morning with family in an attempt to clarify exact goals of care. However, this has been fruitless at this point. 8. HYPOTHYROIDISM. Will continue the patient's home medications once reconciled. 9. HYPERTENSION. The patient's blood pressures are stable at this time, but will hold any hypertensive medications due to septic state. 10. DVT PROPHYLAXIS. Will continue SCDs. DISPOSITION: The patient is no chest compressions. Pending patient's symptomatology and diagnostic findings, will re-evaluate as needed. Hopefully can get goals of care from the family today. Time spent on this critical care visit, including assessment, plan, physical examination, attempt at patient education, review of current and previous records is 35 minutes. DICTATING PHYSICIAN: SAMAN OSBORNE NP [id number] PHY#: [id number] ID: [id number] JOB#: [id number] ACCT: [id number] cc: >
[2016-12-03] MEDS ORDERED: ROCURONIUM BROMIDE INJ 50 MG/5 ML VIAL IV ONE (09:38)
[2016-12-03] MEDS ORDERED: LEVOFLOXACIN 750 MG/D5W RTU 750 MG/150 ML RTUPB IV SCH (10:00)
[2016-12-03] MEDS ORDERED: CEFTRIAXONE 1 GM/D5W RTU 1 GM/50 ML RTUPB IV SCH (10:00)
[2016-12-03] MEDS ORDERED: FAMOTIDINE INJ/PF 20 MG/2 ML SDV IV SCH (10:00)
[2016-12-03] MEDS ORDERED: HYDROMORPHONE HCL INJ/PF 2 MG/ML AMPULE IV ONE (12:24)
[2016-12-03] MEDS: HYDROMORPHONE HCL INJ/PF 2 MG/ML AMPULE IV PRN ×2 (19:38→23:10)
[2016-12-04] MEDS: IPRATROPIUM/ALBUTEROL 0.5-2.5 MG/3 ML AMPUL NEB SCH ×2 (01:51→08:32)
[2016-12-04] MEDS: HYDROMORPHONE HCL INJ/PF 2 MG/ML AMPULE IV PRN ×3 (03:40→08:25)
[2016-12-04 10:57] VITALS: BP 57/37
--- NOTE | 2016-12-04 11:08 | DEATH SUMMARY E ---
Summary NAME: LESTER NEFF : 1935 AGE: 81Y ADMITTED: 12/03/2016 : 12/04/2016 CODE STATUS: DO NOT RESUSCITATE, DO NOT INTUBATE, WITH COMFORT CARE MEASURES ONLY. PRIMARY CARE PROVIDER: MONTY REAL MD FINAL DIAGNOSES: Include: 1. Left lower lobe pneumonia. 2. Acute hypoxemic respiratory failure secondary to #1. 3. Sepsis secondary to #1. 4. Acute renal failure. 5. Atrial fibrillation. 6. Hyperkalemia. 7. Hypothyroidism. 8. Hypertension. 9. End-stage dementia. HISTORY OF PRESENT ILLNESS: The patient is an 81-year-old female with a past medical history of atrial fibrillation, COPD, and end-stage dementia. The patient was brought into the emergency department with her family due to altered mental status and increasing shortness of breath. The patient who is under hospice care had been found by the family to be increasingly short of breath and "rattly" The hospice nurse accompanied the family to the emergency department and the family relinquished their hospice care during this time, as they elected to proceed with intubation of this patient, stating that there was other family that needed to "say last goodbyes." It was made clear that no chest compressions were to be performed, but other resuscitative measures would be undertaken. The patient has been debilitated for quite some time and subsequently has deteriorated and the patient was admitted to ICU for management. HOSPITAL COURSE: The patient was admitted to ICU. The patient was placed on broad-spectrum antibiotic coverage and was effectively ventilated. However, the patient developed ever increasing pulmonary edema and condition continued to deteriorate. The patient became hypotensive with further evidence of shock. The family was notified of this. The patient's daughter, Adri, who is the power of quality control lead requested that the case be discussed with her other siblings and this was done at her request. After numerous phone call conversations, the family elected to proceed with comfort care measures and the patient was terminally extubated on 12/03/2016 in the evening. The patient's condition continued to deteriorate in spite of antibiotic coverage and the patient subsequently on 12/04/2016 at 10:20. Time spent on this summary is 20 minutes. DICTATING PHYSICIAN: SAMAN OSBORNE NP [id number] PHY#: [id number] ID: [id number] JOB#: [id number] ACCT: [id number] cc:SAMAN OSBORNE NP >
[2016-12-04] MEDS ORDERED: BUMETANIDE INJ/PF 1 MG/4 ML SDV IV ONE (12:00)
[2016-12-04] MEDS ORDERED: BUMETANIDE INJ/PF 1 MG/4 ML SDV IV SCH (22:00)
== END 2016-12-04 10:20 | disposition expired | DRG 871 ==
LOC: ER 21:15 → EH 12-03 00:40 → UNDOADMIN 12-03 00:40 → EH 12-03 03:09 → ICU 12-03 04:30 → EH 12-03 04:30
PROVIDERS: ADMIT Family Medicine; ATTEND Family Medicine
PROC: 0BH17EZ Insertion of Endotracheal Airway into Trachea, Via Natural or Artificial Opening (ICD-10-PCS; principal; 2016-12-03)
PROC: 5A1935Z Respiratory Ventilation, Less than 24 Consecutive Hours (ICD-10-PCS; 2016-12-03)
DX: A41.9 Sepsis, unspecified organism (principal); J18.1 Lobar pneumonia, unspecified organism; J96.01 Acute respiratory failure with hypoxia; N17.9 Acute kidney failure, unspecified; Z51.5 Encounter for palliative care; J44.0 Chronic obstructive pulmonary disease with (acute) lower respiratory infection; I48.91 Unspecified atrial fibrillation; E87.5 Hyperkalemia; E03.9 Hypothyroidism, unspecified; I10 Essential (primary) hypertension; F03.90 Unspecified dementia, unspecified severity, without behavioral disturbance, psychotic disturbance, mood disturbance, and anxiety; Z79.899 Other long term (current) drug therapy; Z74.01 Bed confinement status; Z90.49 Acquired absence of other specified parts of digestive tract; Z90.710 Acquired absence of both cervix and uterus; Z87.891 Personal history of nicotine dependence; Z88.0 Allergy status to penicillin; Z91.041 Radiographic dye allergy status; Z88.8 Allergy status to other drugs, medicaments and biological substances
CPT/HCPCS: 36415; 36600; 71010; 80053; 81001; 82550; 82803; 83605; 83735; 84443; 85025; 87040; 87070; 87077; 87186; 87205; 93005; 93010; 94002; 94660; 96365; 96366; 96368; 96375; 99291; J0456; J0696; J1170; J1956; J2250; J2704; J3010; J3490; J7030; J7620; S0028